=== PATIENT | female | born 1975 | race Caucasian/White ===

== ENCOUNTER 2022-03-10 14:44 | Emergency (ER) | payer MEDICARE, OTHER, SELFPAY ==
[2022-03-10 14:56] VITALS: BP 107/71; PULSE 61; RESP 12; TEMP 36.3; O2SAT 100; BMI 31.6
--- NOTE | 2022-03-10 15:20 | CRLHL7_ITS ---
For Patients: As a result of the Century Cures Act, medical imaging exams and procedure reports are released immediately into your electronic medical record. You may view this report before your referring provider. If you have questions, please contact your health care provider. INDICATION: Headache TECHNIQUE: CT head without contrast. COMPARISON: None FINDINGS: CSF spaces: Within normal limits for age. Brain parenchyma: The akers-white differentiation is normal. No sign of mass, hemorrhage, or midline shift. Skull base and calvarium: The visualized paranasal sinuses and mastoid air cells demonstrate no acute or significant findings. The visualized orbits are grossly unremarkable. No skull fractures. IMPRESSION: Unremarkable noncontrast head CT. Dictated by Noah Ritter MD @ 03/10/2022 4:17:50 PM Please note that all CT scans at this facility use dose modulation, iterative reconstruction, and/or weight-based dosing when appropriate to reduce radiation dose to as low as reasonably achievable. Dictated by: Noah Ritter MD @ 03/10/2022 16:17:54 (Electronically Signed)
--- NOTE | 2022-03-10 15:20 | CRLHL7_ITS ---
For Patients: As a result of the Century Cures Act, medical imaging exams and procedure reports are released immediately into your electronic medical record. You may view this report before your referring provider. If you have questions, please contact your health care provider. Pelvis. INDICATION: Chronic diarrhea. COMPARISON: None. TECHNIQUE: CT abdomen and pelvis with Isovue-370, 90 cc IV. FINDINGS: Lung bases clear. Normal heart size. No pericardial effusion. Normal liver size and contour. No suspicious hepatic lesions. The hepatic and portal veins appear patent. Gallbladder is not identified. No biliary dilatation. No significant abnormality of the adrenal glands, kidneys, spleen, pancreas, stomach or duodenum. Normal course and caliber of the abdominal aorta and the IVC. The aortic side branches and renal veins appear patent. There is no lymphadenopathy. Bladder is normal. Uterus appears normal. There are several right adnexal lesions which appear to be corpus luteal cysts (series 3 image 112). Mild rectal thickening versus intramural fat deposition (series 3 image 125), favor fat deposition. No pericolonic fat stranding. Normal appendix. Terminal ileum appears normal. No significant free fluid. Small fat containing periumbilical hernia. No acute osseous abnormality. IMPRESSION: No etiology identified for patient`s chronic diarrhea. No definite acute abnormality within the abdomen or pelvis. Please note that all CT scans at this facility use dose modulation, iterative reconstruction, and/or weight-based dosing when appropriate to reduce radiation dose to as low as reasonably achievable. Dictated by Epi Monterroso MD @ 03/10/2022 5:03:26 PM (Electronically Signed)
--- NOTE | 2022-03-10 15:23 | ED_ITS ---
HPI - General Adult General Chief complaint: Headache/Migraine Stated complaint: Diarreah since August, Chronic Migraines Time Seen by Provider: 03/10/22 14:55 History of Present Illness HPI narrative: This 46-year-old female comes in reporting chronic diarrhea for the past 6 months. She also has had migraine headaches that occur almost daily. She does not have any fever. She is not on any new medications triggering these symptoms. She did see a provider in clinic about a month ago and had labs drawn. She has not taken any medications for these symptoms except for a preventative medicine for headache as well as a rescue medicine for headache. She states that these medicines have not helped her. Related Data Previous Rx's Medication Instructions Recorded diphenoxylate-atropine 2.5 1 tab PO DAILY #10 tabs 03/10/22 mg-0.025 mg tablet (Lomotil) ketorolac 10 mg tablet 10 mg PO Q8H 5 days #15 tabs 03/10/22 ondansetron HCl 4 mg tablet 4 mg PO Q6H #20 tabs 03/10/22 Allergies Allergy/AdvReac Type Severity Reaction Status Date / Time morphine AdvReac Verified 03/10/22 15:03 Review of Systems Status of ROS: Reports: 10 or more systems reviewed and unremarkable except as noted in History and below Narrative: Constitutional: No fevers, no weight gain or loss. Eyes: No discharge. No vision changes. HENT: No congestion, no sore throat, no ear pain. Cardiovascular: No chest pain, no palpitations. Respiratory: No shortness of breath, no wheezes, no cough. Gastrointestinal: Mild abdominal pain, no vomiting. Chronic watery diarrhea as described above. Genitourinary: No dysuria, no hematuria. Musculoskeletal: Normal range of motion. Skin: No rashes, no pruritis. Neurological: No dizziness, weakness, sensory change, speech change. Endo/Heme/Allergies: No bruising or bleeding. No polydipsia. Pysch: no suicidality, no anxiety, no insomnia. All other systems reviewed and are negative. Exam Narrative: Exam Narrative: Constitutional: Well-developed, well-nourished, no acute distress. HEENT: Normocephalic, atraumatic. Neck: Normal range of motion. Nontender. Supple. Heart: Regular. No murmurs. Normal rate. Intact distal pulses. Lungs: Clear to auscultation. No chest discomfort. No wheezes, rhonchi, or rales. Abdomen: Normal bowel sounds. Mild tenderness No rebound tenderness. Genitalia: Deferred. Back: No midline tenderness. Normal range of motion. Extremities: Normal range of motion. No injury. Skin: Intact. No rash. Warm. No erythema or pallor. Neurologic: No altered sensation. No weakness. Alert and oriented. No facial asymmetry or unilateral weakness. Speech is normal. Psychiatric: No suicidality. No anxiety or depression. No insomnia. Nursing notes and vitals signs are reviewed. Const: Vital Signs, click to edit/add: Vital Signs - 24 hr 03/10/22 14:56 Temperature 97.4 F L Pulse Rate [Pulse Oximeter] 61 Respiratory Rate 12 Blood Pressure [Ri ght Upper Arm] 107/71 Pulse Oximetry 100 Oxygen Delivery Me thod Room Air Course Vital Signs Vital signs: Initial Vital Signs Temperature 97.4 F L 03/10/22 14:56 Temperature Source Temporal Artery Scan 03/10/22 14:56 Pulse Rate 61 03/10/22 14:56 Respiratory Rate 12 03/10/22 14:56 Blood Pressure 107/71 03/10/22 14:56 Blood Pressure Mean 83 03/10/22 14:56 Blood Pressure Position Sitting 03/10/22 14:56 Pulse Oximetry 100 03/10/22 14:56 Oxygen Delivery Method 03/10/22 14:56 Vital Signs Temperature 97.4 F L 03/10/22 14:56 Pulse Rate 61 03/10/22 14:56 Respiratory Rate 12 03/10/22 14:56 Blood Pressure 107/71 03/10/22 14:56 Pulse Oximetry 100 03/10/22 14:56 Oxygen Delivery Method 03/10/22 14:56 Temperature 97.4 F L 03/10/22 14:56 Pulse Rate 61 03/10/22 14:56 Respiratory Rate 12 03/10/22 14:56 Blood Pressure 107/71 03/10/22 14:56 Pulse Oximetry 100 03/10/22 14:56 Oxygen Delivery Method 03/10/22 14:56 Medical Decision Making MDM Narrative Medical decision making narrative: This patient comes in with recurrent diarrhea and migraine headaches for the past fiber 6 months. An IV was established and she received a L of normal saline intravenously. Lab results returned with reassuring findings. Her white count is elevated a bit but this is not new for her in her comparison values in the past. CT imaging of the abdomen and pelvis shows no acute findings as does CT imaging of her head. The patient received IV doses of Toradol 30 mg, Zofran 4 mg, and Benadryl 50 mg. This brought some minimal relief to her symptoms. She was interested in receiving something further so she did received 20 mg of ketamine infused over 20-30 minutes. This brought better relief to her pain. She is okay to return home. I did advise that she try to return to normal diet and use fiber additive help normalize her bowels. She could also use Imodium as needed and directed. I did provide a few tablets of Lomotil along with prescription for Toradol and Zofran to treat her symptoms. Lab Data Labs: Lab Results 03/10/22 03/10/22 03/10/22 Range/Units 15:45 15:45 15:45 WBC 15.11 H (4.50-11.00) K/uL RBC 4.56 (4.00-5.20) m/uL Hgb 14.2 (12.0-16.0) gm/dL Hct 42.6 (33.0-51.0) % MCV 93 (80-100) fL MCH 31 (26-34) pg MCHC 33 (32-36) gm/dL RDW Coeff of Aruna 13.4 (11.5-15.5) % Plt Count 293 (140-440) K/uL Neut % (Auto) 66.0 (42.0-72.0) % Lymph % (Auto) 27.4 (20-44) % [place] % (Auto) 4.6 (0.0-11.0) % Eos % (Auto) 1.2 (0.0-7.0) % Baso % (Auto) 0.3 (0.0-3.0) % Neut # (Auto) 10.00 H (1.7-7.0) K/uL Lymph # (Auto) 4.10 H (0.90-2.90) K/uL [place] # (Auto) 0.70 (0.00-0.90) K/UL Eos # (Auto) 0.20 (0.00-0.50) K/uL Baso # (Auto) 0.00 (0.00-0.30) K/uL ESR 6 (2-20) mm/hr Sodium 137 (135-149) mmol/L Potassium 3.9 (3.6-5.1) mmol/L Chloride 105 (96-114) mmol/L Carbon Dioxide 26 (20-32) mmol/L BUN 15 (5-24) mg/dL Creatinine 1.1 (0.5-1.5) mg/dL Estimated Creat Clear 65.15 Estimated GFR 63 ml/min Glucose 100 (60-115) mg/dL Calcium 8.8 (8.4-10.6) mg/dL Total Bilirubin (0.1-1.5) mg/dL Direct Bilirubin (0.0-0.5) mg/dL AST (12-35) U/L ALT (4-35) U/L Alkaline Phosphatase (40-150) U/L C-Reactive Protein < 0.5 L (0.5-1.0) mg/dL Total Protein (6.0-8.3) g/dL Albumin (3.3-5.0) g/dL TSH (0.270-4.20) uIU/mL 03/10/22 03/10/22 Range/Units 15:45 15:45 WBC (4.50-11.00) K/uL RBC (4.00-5.20) m/uL Hgb (12.0-16.0) gm/dL Hct (33.0-51.0) % MCV (80-100) fL MCH (26-34) pg MCHC (32-36) gm/dL RDW Coeff of Aruna (11.5-15.5) % Plt Count (140-440) K/uL Neut % (Auto) (42.0-72.0) % Lymph % (Auto) (20-44) % [place] % (Auto) (0.0-11.0) % Eos % (Auto) (0.0-7.0) % Baso % (Auto) (0.0-3.0) % Neut # (Auto) (1.7-7.0) K/uL Lymph # (Auto) (0.90-2.90) K/uL [place] # (Auto) (0.00-0.90) K/UL Eos # (Auto) (0.00-0.50) K/uL Baso # (Auto) (0.00-0.30) K/uL ESR (2-20) mm/hr Sodium (135-149) mmol/L Potassium (3.6-5.1) mmol/L Chloride (96-114) mmol/L Carbon Dioxide (20-32) mmol/L BUN (5-24) mg/dL Creatinine (0.5-1.5) mg/dL Estimated Creat Clear Estimated GFR ml/min Glucose (60-115) mg/dL Calcium (8.4-10.6) mg/dL Total Bilirubin 0.5 (0.1-1.5) mg/dL Direct Bilirubin 0.4 (0.0-0.5) mg/dL AST 29 (12-35) U/L ALT 21 (4-35) U/L Alkaline Phosphatase 77 (40-150) U/L C-Reactive Protein (0.5-1.0) mg/dL Total Protein 7.2 (6.0-8.3) g/dL Albumin 4.4 (3.3-5.0) g/dL TSH 0.792 (0.270-4.20) uIU/mL Imaging Data CT scan - head: Radiologist's impression: Unremarkable noncontrast head CT. CT scan - abdomen: Radiologist's impression: No etiology identified for patient`s chronic diarrhea. No definite acute abnormality within the abdomen or pelvis. Discharge Plan Discharge Clinical Impression: Migraine, Diarrhea Patient Disposition: Home, Self-Care Condition: Stable Additional Instructions: Use medication as needed and indicated. Resume normal diet as tolerated. Use Imodium also as needed and indicated for diarrhea. Follow up with MD or return if worsening. Prescriptions: New ondansetron HCl 4 mg tablet 4 mg PO Q6H Qty: 20 0RF diphenoxylate-atropine [Lomotil] 2.5-0.025 mg tablet 1 tab PO DAILY Qty: 10 0RF ketorolac 10 mg tablet 10 mg PO Q8H 5 Days Qty: 15 0RF Follow Up/Referrals: Provider,Not a Local [Primary Care Provider] - Stand Alone Forms: [employer] Info Instructions
[2022-03-10] MEDS: diphenhydrAMINE 50 MG/ML inj IVP (15:47)
[2022-03-10] MEDS: KETOROLAC 30 MG/ML inj IVP (15:47)
[2022-03-10] MEDS: ONDANSETRON 2 MG/ML inj 4 MG IVP (15:47)
[2022-03-10 16:00] LABS: Basophils Percent Auto 0.3 % (0.0-3.0); Eosinophils Percent Auto 1.2 % (0.0-7.0); Hematocrit 42.6 % (33.0-51.0); Hemoglobin* 14.2 gm/dL (12.0-16.0); Immature Granulocytes Pct Auto 0.5 %; Lymphocytes Percent Auto 27.4 % (20-44); Mean Corpuscular HGB Conc 33 gm/dL (32-36); Mean Corpuscular Hemoglobin 31 pg (26-34); Mean Corpuscular Volume 93 fL (80-100); Monocytes Percent Auto 4.6 % (0.0-11.0); Platelet Count* 293 K/uL (140-440); RDW Coefficient of Variation % 13.4 % (11.5-15.5); Red Blood Count 4.56 m/uL (4.00-5.20); White Blood Count* 15.11 K/uL (4.50-11.00)
[2022-03-10 16:03] LABS: Slide Review Reflex No
[2022-03-10 16:11] LABS: Chloride* 105 mmol/L (96-114); Sodium* 137 mmol/L (135-149)
[2022-03-10 16:12] LABS: Albumin* 4.4 g/dL (3.3-5.0); Potassium* 3.9 mmol/L (3.6-5.1)
[2022-03-10 16:14] LABS: Creatinine* 1.1 mg/dL (0.5-1.5); Est. Creatinine Clearance* 65.15; Estimated Glomerular Filt Rate 63 ml/min
[2022-03-10 16:15] LABS: Bilirubin Direct* 0.4 mg/dL (0.0-0.5); Bilirubin Total* 0.5 mg/dL (0.1-1.5); Blood Urea Nitrogen* 15 mg/dL (5-24); Calcium* 8.8 mg/dL (8.4-10.6); Carbon Dioxide* 26 mmol/L (20-32); Glucose* 100 mg/dL (60-115); Total Protein* 7.2 g/dL (6.0-8.3)
[2022-03-10 16:16] LABS: Alanine Aminotransferase* 21 U/L (4-35); Alkaline Phosphatase* 77 U/L (40-150); Aspartate Amino Transferase* 29 U/L (12-35)
[2022-03-10 16:25] LABS: C Reactive Protein* < 0.5 mg/dL (0.5-1.0)
[2022-03-10] MEDS: 0.9 % SODIUM CHLORIDE 1000 ml 1,000 ML IV (16:56)
[2022-03-10 16:58] LABS: Erythrocyte SedimentationRate* 6 mm/hr (2-20); Thyroid Stimulating Hormone* 0.792 uIU/mL (0.270-4.20)
[2022-03-10] MEDS: KETAMINE HCL 20 MG in 0.9 % SODIUM CHLORIDE 100 ml 100 ML 300.6 MG IVPB (17:47)
[2022-03-10] MEDS: METHYLPREDNISOLONE SOD SUCC 62.5 MG/ML (125) 125 MG IVP (17:47)
[2022-03-10 19:00] VITALS: BP 119/78; PULSE 85; RESP 12; O2SAT 98
== END 2022-03-10 19:05 | disposition home or self-care (01) ==
PROVIDERS: Emergency Provider Emergency Medicine Emergency Medical Services
DX: G43.909 Migraine, unspecified, not intractable, without status migrainosus (principal); R19.7 Diarrhea, unspecified
CPT/HCPCS: 36415; 70450; 74177; 80048; 80076; 84443; 85025; 85651; 86140; 96365; 96375; 99284; J1200; J1885; J2405; J2930; J3490; J7030; Q9967

== ENCOUNTER 2022-03-16 23:51 | Outpatient (CLI) | payer MEDICARE, OTHER, SELFPAY | END 2022-03-16 23:52 | disposition home or self-care (01) | LOC: AMB 03-17 13:36 | PROVIDERS: Visit Provider Family Medicine | DX: T40.411A Poisoning by fentanyl or fentanyl analogs, accidental (unintentional), initial encounter (principal) | CPT/HCPCS: A0425; A0427 ==

== ENCOUNTER 2022-03-17 00:29 | Emergency (ER) | payer MEDICARE, OTHER, SELFPAY ==
[2022-03-17] VITALS (7 sets, daily range): BP systolic 121–140; BP diastolic 71–103; PULSE 80–98; RESP 16; TEMP 36.4; O2SAT 94–100
[2022-03-17 01:23] LABS: Basophils Percent Auto 0.4 % (0.0-3.0); Eosinophils Percent Auto 1.5 % (0.0-7.0); Hematocrit 39.1 % (33.0-51.0); Hemoglobin* 12.6 gm/dL (12.0-16.0); Immature Granulocytes Pct Auto 0.1 %; Lymphocytes Percent Auto 25.1 % (20-44); Mean Corpuscular HGB Conc 32 gm/dL (32-36); Mean Corpuscular Hemoglobin 31 pg (26-34); Mean Corpuscular Volume 95 fL (80-100); Monocytes Percent Auto 4.7 % (0.0-11.0); Neutrophils Percent Auto 68.2 % (42.0-72.0); Platelet Count* 159 K/uL (140-440); RDW Coefficient of Variation % 13.3 % (11.5-15.5); Slide Review Reflex No; White Blood Count* 11.81 K/uL (4.50-11.00)
[2022-03-17] MEDS: 0.9 % SODIUM CHLORIDE 1000 ml 1,000 ML IV (01:25)
[2022-03-17 01:39] LABS: Albumin* 4.3 g/dL (3.3-5.0); Chloride* 101 mmol/L (96-114); Sodium* 137 mmol/L (135-149)
[2022-03-17 01:40] LABS: Potassium* 4.3 mmol/L (3.6-5.1)
[2022-03-17 01:42] LABS: Creatinine* 1.6 mg/dL (0.5-1.5); Estimated Glomerular Filt Rate 40 ml/min
[2022-03-17 01:43] LABS: Alanine Aminotransferase* 26 U/L (4-35); Alkaline Phosphatase* 78 U/L (40-150); Aspartate Amino Transferase* 33 U/L (12-35); Bilirubin Direct* 0.3 mg/dL (0.0-0.5); Bilirubin Total* 0.3 mg/dL (0.1-1.5); Blood Urea Nitrogen* 11 mg/dL (5-24); Calcium* 8.6 mg/dL (8.4-10.6); Carbon Dioxide* 27 mmol/L (20-32); Glucose* 97 mg/dL (60-115); Total Protein* 7.2 g/dL (6.0-8.3)
[2022-03-17 01:44] LABS: Acetaminophen* < 10.0 ug/mL (10.0-30.0); Ethanol* < 0.01 % (0.01-0.03)
--- NOTE | 2022-03-17 01:45 | ED.NURSE ---
Miguel Newton, OKd to give info to . [phone]
[2022-03-17 01:52] LABS: Troponin I* 0.04 ng/mL (0.01-0.04)
[2022-03-17 01:53] LABS: NT Pro B Type NatriureticPept* 22 pg/mL
[2022-03-17 03:03] LABS: Salicylate* < 1.0 mg/dL (1.0-10)
[2022-03-17 03:04] LABS: Amphetamine Screen Urine Negative (Negative); Barbiturate Screen Urine Negative (Negative); Cocaine Screen Urine Negative (Negative); Methadone Screen Urine Negative (Negative); Methamphetamines Screen Urine Negative (Negative); Opiate Screen Urine Negative (Negative); Oxycodone Screen Urine Negative (Negative); Phencyclidine Screen Urine Negative (Negative)
[2022-03-17 03:05] LABS: Benzodiazepines Screen Urine POSITIVE (Negative); Cannabinoid Screen Urine POSITIVE (Negative); Tricyclic Antidepressant Urine POSITIVE (Negative)
[2022-03-17 03:27] LABS: Appearance Urine Cloudy (Clear); Bilirubin Urine Negative (Negative); Blood Urine 1+ (Negative); Color Urine Yellow (Yellow); Glucose Urine Negative (Negative); Ketones Urine Negative (Negative); Leukocyte Esterase Urine 1+ (Negative); Nitrite Urine Positive (Negative); Protein Urine Negative (Negative); Specific Gravity Urine >= 1.030 (1.000-1.030); Urobilinogen Urine 0.2 (0.2-1.0); pH Urine 5.5 (5.0-8.5)
[2022-03-17 03:40] LABS: Bacteria Urine Many; Mucus Urine Moderate; Squamous Epithelial Cell Urine Moderate (None-Few); WBC Urine 25-50 (0-5)
--- NOTE | 2022-03-17 04:00 | ED_ITS ---
HPI - General Adult General Chief complaint: Unspecified Complaint, Adult Stated complaint: Overdose Time Seen by Provider: 03/17/22 00:42 History of Present Illness HPI narrative: 46-year-old woman most recently seen here for migrainous type headache. Found at home I believe by her daughter unresponsive in the bathroom. Was alert by the time EMS arrived. Unclear amount of down time in the bathroom. Apparently ingested a pill obtained from an individual at [email or web address]. I asked her more about this and she admits that she thought it was oxycodone with ?a little bit of fentanyl?. Denies chest pain shortness of breath or sense of palpitations. More inquiry into this pill wear it sounds as though was not purchased today but she says she actually took half of it 2 days ago and then the other half today in an effort to treat headaches and chronic back pain. Says that she has not taken opiates in years. Again, took half of this particular pill a day prior but did not lose track of time or pass out like she did here today. Admits that if she would not have woken up that would not been good. It was not the intent to harm herself in any way. Other questioning later reveals that has an pending appointment in a couple of days with primary care provider as has been experiencing some dysuria. Related Data Previous Rx's Medication Instructions Recorded diphenoxylate-atropine 2.5 1 tab PO DAILY #10 tabs 03/10/22 mg-0.025 mg tablet (Lomotil) ketorolac 10 mg tablet 10 mg PO Q8H 5 days #15 tabs 03/10/22 ondansetron HCl 4 mg tablet 4 mg PO Q6H #20 tabs 03/10/22 Allergies Allergy/AdvReac Type Severity Reaction Status Date / Time morphine AdvReac Verified 03/10/22 15:03 Review of Systems Status of ROS: Reports: 10 or more systems reviewed and unremarkable except as noted in History and below PFSH PFSH Social History Do you use any of these nicotine containing products: E-Cigarettes Second hand tobacco smoke exposure: Yes How often do you have a drink containing alcohol: monthly or less AUDIT-C Alcohol total score: 1 Non-prescribed substance use: other Non-prescribed substance use details: unknown pill from person service: No Exam Narrative: Exam Narrative: Pleasant. NAD. Facial skin is with subtle faint rash which fades mostly over time in the ER. Appears to be mentating normally. Speaking fluidly. Cranial nerves 2-12 to be intact. Moving all extremities without difficulty. No indication of trauma on her person. Head is atraumatic. Lungs are clear and cardiovascular with a heart rate in a regular rate in a regular rhythm without murmur rub or gallop. Abdomen is soft and nontender. No masses appreciated. Const: Vital Signs, click to edit/add: Vital Signs - 24 hr 03/17/22 00:38 03/17/22 01:42 03/17/22 02:00 Temperature 97.5 F L Pulse Rate [Right Pulse Oximeter] 86 90 Respiratory Rate 16 16 Blood Pressure [Le ft Upper Arm] 132/89 130/76 Pulse Oximetry 94 96 100 Oxygen Delivery Me thod Room Air Room Air 03/17/22 01:40 03/17/22 01:20 03/17/22 04:00 Temperature Pulse Rate [Right Pulse Oximeter] 98 94 80 Respiratory Rate 16 16 16 Blood Pressure [Le ft Upper Arm] 138/103 H 140/96 H 121/71 Pulse Oximetry 99 99 96 Oxygen Delivery Me thod Room Air Room Air Room Air Documenting provider has reviewed patient's vital signs: yes Course Vital Signs Vital signs: Initial Vital Signs Temperature 97.5 F L 03/17/22 00:38 Temperature Source Temporal Artery Scan 03/17/22 00:38 Pulse Rate 86 03/17/22 00:38 Pulse Rhythm 03/17/22 00:38 Respiratory Rate 16 03/17/22 00:38 Blood Pressure 132/89 03/17/22 00:38 Blood Pressure Mean 103 03/17/22 00:38 Blood Pressure Position Semi-Fowlers 03/17/22 00:38 Pulse Oximetry 94 03/17/22 00:38 Oxygen Delivery Method 03/17/22 00:38 Vital Signs Temperature 97.5 F L 03/17/22 00:38 Pulse Rate 86 03/17/22 00:38 Respiratory Rate 16 03/17/22 00:38 Blood Pressure 132/89 03/17/22 00:38 Pulse Oximetry 94 03/17/22 00:38 Oxygen Delivery Method 03/17/22 00:38 Temperature 97.5 F L 03/17/22 00:38 Pulse Rate 80 03/17/22 04:00 Respiratory Rate 16 03/17/22 04:00 Blood Pressure 121/71 03/17/22 04:00 Pulse Oximetry 96 03/17/22 04:00 Oxygen Delivery Method 03/17/22 04:00 Medical Decision Making MDM Narrative Medical decision making narrative: Only watching on monitor here for time in the ER. Labs including tox screen pending. Cardiac evaluation also done. Nothing conclusive on labs. White count little bit elevated and CRP as well which might be explained by findings in urine. No events on account officer. Did receive a L of normal saline. Urine tox screen positive for tricyclics wear she notes she takes a number of psychiatric medications including prescribed clonazepam which also explains the benzodiazepine. THC as well. I would note however no opiates. Lab Data Lab results reviewed: Yes I reviewed the patient's lab results Labs: Lab Results 03/17/22 03/17/22 03/17/22 Range/Units 01:15 01:15 02:25 WBC 11.81 H (4.50-11.00) K/uL RBC 4.10 (4.00-5.20) m/uL Hgb 12.6 (12.0-16.0) gm/dL Hct 39.1 (33.0-51.0) % MCV 95 (80-100) fL MCH 31 (26-34) pg MCHC 32 (32-36) gm/dL RDW Coeff of Aruna 13.3 (11.5-15.5) % Plt Count 159 (140-440) K/uL Neut % (Auto) 68.2 (42.0-72.0) % Lymph % (Auto) 25.1 (20-44) % [place] % (Auto) 4.7 (0.0-11.0) % Eos % (Auto) 1.5 (0.0-7.0) % Baso % (Auto) 0.4 (0.0-3.0) % Neut # (Auto) 8.10 H (1.7-7.0) K/uL Lymph # (Auto) 3.00 H (0.90-2.90) K/uL [place] # (Auto) 0.60 (0.00-0.90) K/UL Eos # (Auto) 0.20 (0.00-0.50) K/uL Baso # (Auto) 0.00 (0.00-0.30) K/uL Sodium 137 (135-149) mmol/L Potassium 4.3 (3.6-5.1) mmol/L Chloride 101 (96-114) mmol/L Carbon Dioxide 27 (20-32) mmol/L BUN 11 (5-24) mg/dL Creatinine 1.6 H (0.5-1.5) mg/dL Estimated GFR 40 ml/min Glucose 97 (60-115) mg/dL Calcium 8.6 (8.4-10.6) mg/dL Total Bilirubin 0.3 (0.1-1.5) mg/dL Direct Bilirubin 0.3 (0.0-0.5) mg/dL AST 33 (12-35) U/L ALT 26 (4-35) U/L Alkaline Phosphatase 78 (40-150) U/L Troponin I 0.04 (0.01-0.04) ng/mL C-Reactive Protein 1.0 (0.5-1.0) mg/dL NT-Pro-B Natriuret Pep 22 pg/mL Total Protein 7.2 (6.0-8.3) g/dL Albumin 4.3 (3.3-5.0) g/dL Urine Color (Yellow) Urine Appearance (Clear) Urine pH (5.0-8.5) Ur Specific [place] (1.000-1.030) Urine Protein (Negative) Urine Glucose (UA) (Negative) Urine Ketones (Negative) Urine Blood (Negative) Urine Nitrite (Negative) Urine Bilirubin (Negative) Urine Urobilinogen (0.2-1.0) Ur Leukocyte Esterase (Negative) Urine RBC (0-2) Urine WBC (0-5) Ur Squamous Epith Cells (None-Few) Urine Bacteria (None) Urine Mucus (None) Salicylates < 1.0 L (1.0-10) mg/dL Urine Opiates Screen Negative (Negative) Ur Oxycodone Screen Negative (Negative) Urine Methadone Screen Negative (Negative) Ur Propoxyphene Screen Negative (Negative) Acetaminophen < 10.0 L (10.0-30.0) ug/mL Ur Barbiturates Screen Negative (Negative) U Tricyclic Antidepress POSITIVE A* (Negative) Ur Phencyclidine Scrn Negative (Negative) Ur Amphetamines Screen Negative (Negative) U Methamphetamines Scrn Negative (Negative) U Benzodiazepines Scrn POSITIVE A* (Negative) Urine Cocaine Screen Negative (Negative) U Marijuana (THC) Screen POSITIVE A* (Negative) Ur Drug Screen Comment See Note Ethyl Alcohol < 0.01 L (0.01-0.03) % 03/17/22 Range/Units 02:25 WBC (4.50-11.00) K/uL RBC (4.00-5.20) m/uL Hgb (12.0-16.0) gm/dL Hct (33.0-51.0) % MCV (80-100) fL MCH (26-34) pg MCHC (32-36) gm/dL RDW Coeff of Aruna (11.5-15.5) % Plt Count (140-440) K/uL Neut % (Auto) (42.0-72.0) % Lymph % (Auto) (20-44) % [place] % (Auto) (0.0-11.0) % Eos % (Auto) (0.0-7.0) % Baso % (Auto) (0.0-3.0) % Neut # (Auto) (1.7-7.0) K/uL Lymph # (Auto) (0.90-2.90) K/uL [place] # (Auto) (0.00-0.90) K/UL Eos # (Auto) (0.00-0.50) K/uL Baso # (Auto) (0.00-0.30) K/uL Sodium (135-149) mmol/L Potassium (3.6-5.1) mmol/L Chloride (96-114) mmol/L Carbon Dioxide (20-32) mmol/L BUN (5-24) mg/dL Creatinine (0.5-1.5) mg/dL Estimated GFR ml/min Glucose (60-115) mg/dL Calcium (8.4-10.6) mg/dL Total Bilirubin (0.1-1.5) mg/dL Direct Bilirubin (0.0-0.5) mg/dL AST (12-35) U/L ALT (4-35) U/L Alkaline Phosphatase (40-150) U/L Troponin I (0.01-0.04) ng/mL C-Reactive Protein (0.5-1.0) mg/dL NT-Pro-B Natriuret Pep pg/mL Total Protein (6.0-8.3) g/dL Albumin (3.3-5.0) g/dL Urine Color Yellow (Yellow) Urine Appearance Cloudy A (Clear) Urine pH 5.5 (5.0-8.5) Ur Specific [place] >= 1.030 (1.000-1.030) Urine Protein Negative (Negative) Urine Glucose (UA) Negative (Negative) Urine Ketones Negative (Negative) Urine Blood 1+ A (Negative) Urine Nitrite Positive A (Negative) Urine Bilirubin Negative (Negative) Urine Urobilinogen 0.2 (0.2-1.0) Ur Leukocyte Esterase 1+ A (Negative) Urine RBC 2-5 A (0-2) Urine WBC 25-50 A (0-5) Ur Squamous Epith Cells Moderate A (None-Few) Urine Bacteria Many A (None) Urine Mucus Moderate A (None) Salicylates (1.0-10) mg/dL Urine Opiates Screen (Negative) Ur Oxycodone Screen (Negative) Urine Methadone Screen (Negative) Ur Propoxyphene Screen (Negative) Acetaminophen (10.0-30.0) ug/mL Ur Barbiturates Screen (Negative) U Tricyclic Antidepress (Negative) Ur Phencyclidine Scrn (Negative) Ur Amphetamines Screen (Negative) U Methamphetamines Scrn (Negative) U Benzodiazepines Scrn (Negative) Urine Cocaine Screen (Negative) U Marijuana (THC) Screen (Negative) Ur Drug Screen Comment Ethyl Alcohol (0.01-0.03) % ECG Data Attestation: I personally reviewed and interpreted this ECG as follows: (Normal sinus rhythm rate of 95) Discharge Plan Discharge Clinical Impression: Altered mental status, Cystitis, Ingestion of unknown drug Patient Disposition: Home w/ Parent or Adult Condition: Improved Additional Instructions: Especially given the cystitis, stay well hydrated with water. Urine culture will be pending here. Will call you if the medication needs to be changed. For now, cephalexin from [facility]. Follow-up with scheduled appointment with your primary care provider to talk about your headaches and your pain otherwise. Surely there are safer ways to manage it than what happened today. Prescriptions: No Action ondansetron HCl 4 mg tablet 4 mg PO Q6H Qty: 20 0RF diphenoxylate-atropine [Lomotil] 2.5-0.025 mg tablet 1 tab PO DAILY Qty: 10 0RF ketorolac 10 mg tablet 10 mg PO Q8H 5 Days Qty: 15 0RF Follow Up/Referrals: Provider,Not a Local [Primary Care Provider] - Stand Alone Forms: [facility] Info Instructions
== END 2022-03-17 04:47 | disposition home or self-care (01) ==
PROVIDERS: Emergency Provider Family Medicine
DX: R41.82 Altered mental status, unspecified (principal); T65.91XA Toxic effect of unspecified substance, accidental (unintentional), initial encounter; Y92.012 Bathroom of single-family (private) house as the place of occurrence of the external cause; N30.90 Cystitis, unspecified without hematuria
CPT/HCPCS: 36415; 80048; 80076; 80143; 80179; 80306; 81001; 82077; 83880; 84484; 85025; 86140; 87086; 87186; 93005; 94761; 96360; 99284; J7030

== ENCOUNTER 2022-04-05 13:46 | Emergency (ER) | payer MEDICARE, OTHER, SELFPAY ==
[2022-04-05 13:49] VITALS: BP 147/112; PULSE 125; RESP 18; TEMP 36.4; O2SAT 98; BMI 32.8
--- NOTE | 2022-04-05 14:18 | CRLHL7_ITS ---
For Patients: As a result of the Century Cures Act, medical imaging exams and procedure reports are released immediately into your electronic medical record. You may view this report before your referring provider. If you have questions, please contact your health care provider. Indication: Vertigo Technique: Noncontrast head CT Comparison: Head CT 03/10/2022 Findings: Axial noncontrast images through the brain parenchyma demonstrates no acute intracranial hemorrhage or mass. No midline shift. No abnormal extra-axial air or fluid collections are seen. Skull and scalp are unremarkable Impression: No acute intracranial hemorrhage or mass. Please note that all CT scans at this facility use dose modulation, iterative reconstruction, and/or weight-based dosing when appropriate to reduce radiation dose to as low as reasonably achievable. Dictated by Lori Arroyo MD @ 04/05/2022 3:10:54 PM (Electronically Signed)
--- NOTE | 2022-04-05 14:19 | ED.HA ---
HPI - Headache General Chief Complaint: Headache/Migraine Stated Complaint: Migraine Dizzy Ear Pain Time Seen by Provider: 04/05/22 13:53 History of Present Illness HPI Narrative: This 46-year-old female comes in reporting headache and vertigo symptoms. She has had headaches for the most of the past few months or more. She reports some associated visual changes that come and go. Additionally she has episodes of left-sided hearing changes including decreased hearing and ringing sensation. This is also associated with vertigo symptoms. These symptoms occur once or twice a day on average. She does not report any fevers. She states that she has been to a neurologist regarding these headaches and was placed on propranolol. This did not help her symptoms at all. Related Data Previous Rx's Medication Instructions Recorded diphenoxylate-atropine 2.5 1 tab PO DAILY #10 tabs 03/10/22 mg-0.025 mg tablet (Lomotil) ketorolac 10 mg tablet 10 mg PO Q8H 5 days #15 tabs 03/10/22 ondansetron HCl 4 mg tablet 4 mg PO Q6H #20 tabs 03/10/22 hydrochlorothiazide 12.5 mg tablet 12.5 mg PO QAM #30 tabs 04/05/22 ketorolac 10 mg tablet 10 mg PO Q8H 5 days #15 tabs 04/05/22 meclizine 25 mg tablet 25 mg PO QID #20 tabs 04/05/22 ondansetron 4 mg disintegrating 4 mg PO Q6H #20 tabs 04/05/22 tablet Allergies Allergy/AdvReac Type Severity Reaction Status Date / Time morphine AdvReac Verified 03/10/22 15:03 Review of Systems Status of ROS: Reports: 10 or more systems reviewed and unremarkable except as noted in History and below Narrative: Constitutional: No fevers, no weight gain or loss. Eyes: No discharge. Visual changes related to headaches as described above. HENT: No congestion, no sore throat. She reports some pain in the left side of her head and ear. Intermittent hearing changes with decreased hearing and ringing sensation. Cardiovascular: No chest pain, no palpitations. Respiratory: No shortness of breath, no wheezes, no cough. Gastrointestinal: No abdominal pain, no vomiting, no diarrhea. Genitourinary: No dysuria, no hematuria. Musculoskeletal: Normal range of motion. Skin: No rashes, no pruritis. Neurological: No weakness, sensory change, speech change. She reports episodes of vertigo related to hearing changes. Endo/Heme/Allergies: No bruising or bleeding. No polydipsia. Pysch: no suicidality, no anxiety, no insomnia. All other systems reviewed and are negative. [facility] Social History Do you use any of these nicotine containing products: E-Cigarettes Second hand tobacco smoke exposure: Yes How often do you have a drink containing alcohol: monthly or less AUDIT-C Alcohol total score: 1 Non-prescribed substance use: other Non-prescribed substance use details: unknown pill from person service: No Exam Narrative: Exam Narrative: Constitutional: Well-developed, well-nourished, no acute distress. HEENT: Normocephalic, atraumatic. Neck: Normal range of motion. Nontender. Supple. Heart: Regular. No murmurs. Tachycardia. Intact distal pulses. Lungs: Clear to auscultation. No chest discomfort. No wheezes, rhonchi, or rales. Abdomen: Normal bowel sounds. Nontender. No rebound tenderness. Genitalia: Deferred. Back: No midline tenderness. Normal range of motion. Extremities: Normal range of motion. No injury. Skin: Intact. No rash. Warm. No erythema or pallor. Neurologic: No altered sensation. No weakness. Alert and oriented. Psychiatric: No suicidality. No anxiety or depression. No insomnia. Nursing notes and vitals signs are reviewed. Const: Vital Signs, click to edit/add: Vital Signs - 24 hr 04/05/22 13:49 04/05/22 15:34 04/05/22 16:49 Temperature 97.6 F 97.6 F 97.6 F Pulse Rate [Right Pulse Oximeter] 125 H 100 97 Respiratory Rate 18 16 Blood Pressure [Ri ght Upper Arm] 147/112 H 136/98 H 147/103 H Pulse Oximetry 98 95 97 Oxygen Delivery Me thod Room Air Room Air Room Air Course Vital Signs Vital signs: Initial Vital Signs Temperature 97.6 F 04/05/22 13:49 Temperature Source Temporal Artery Scan 04/05/22 13:49 Pulse Rate 125 H 04/05/22 13:49 Respiratory Rate 18 04/05/22 13:49 Blood Pressure 147/112 H 04/05/22 13:49 Blood Pressure Mean 123 04/05/22 13:49 Blood Pressure Position Sitting 04/05/22 13:49 Pulse Oximetry 98 04/05/22 13:49 Oxygen Delivery Method 04/05/22 13:49 Vital Signs Temperature 97.6 F 04/05/22 13:49 Pulse Rate 125 H 04/05/22 13:49 Respiratory Rate 18 04/05/22 13:49 Blood Pressure 147/112 H 04/05/22 13:49 Pulse Oximetry 98 04/05/22 13:49 Oxygen Delivery Method 04/05/22 13:49 Temperature 97.6 F 04/05/22 16:49 Pulse Rate 97 04/05/22 16:49 Respiratory Rate 16 04/05/22 16:49 Blood Pressure 147/103 H 04/05/22 16:49 Pulse Oximetry 97 04/05/22 16:49 Oxygen Delivery Method 04/05/22 16:49 MDM - Headache MDM Narrative Medical decision making narrative: This patient comes in with symptoms as described above. There are symptoms that are suggestive of classic migraine with visual changes. She also has symptoms suggesting Meniere's disease. An IV was established where she received doses of Toradol 30 mg, Zofran 4 mg, and Benadryl 50 mg. She also received oral doses of meclizine 25 mg and hydrochlorothiazide 25 mg. She states that the headache is persisting though the other symptoms have dissipated some. She was requesting ketamine as this helped her significantly in the past. Pharmacist states that there is a shortage and there is just 1 vial left in this hospital. The patient then received an IV dose of Solu-Medrol 125 mg and I made an exception to give a narcotic. She did received Dilaudid 0.2 mg. This brought some relief to her symptoms. At the time of discharge the patient appears safe for outpatient management. The treatment plan is reviewed along with written and verbal return precautions. Reasons to return and the importance of close followup were also reviewed. I advised her to follow-up with [facility] with regard to the diagnosis of Meniere's disease. She did received prescription for hydrochlorothiazide, meclizine, Toradol, and Zofran. Imaging Data CT scan - head: Radiologist's impression: No acute intracranial hemorrhage or mass. Discharge Plan Discharge Clinical Impression: Migraine, Meniere's disease Patient Disposition: Home w/ Parent or Adult Condition: Stable Additional Instructions: Take medications as needed and indicated. [facility] with [facility] regarding the symptoms suggesting Meniere's disease. Return if worsening symptoms happen. Prescriptions: New ketorolac 10 mg tablet 10 mg PO Q8H 5 Days Qty: 15 0RF meclizine 25 mg tablet 25 mg PO QID Qty: 20 0RF ondansetron 4 mg tablet,disintegrating 4 mg PO Q6H Qty: 20 0RF hydrochlorothiazide 12.5 mg tablet 12.5 mg PO QAM Qty: 30 2RF No Action ondansetron HCl 4 mg tablet 4 mg PO Q6H Qty: 20 0RF diphenoxylate-atropine [Lomotil] 2.5-0.025 mg tablet 1 tab PO DAILY Qty: 10 0RF ketorolac 10 mg tablet 10 mg PO Q8H 5 Days Qty: 15 0RF Follow Up/Referrals: Provider,Not a Local [Primary Care Provider] - Stand Alone Forms: [facility] Info Instructions
[2022-04-05] MEDS: MECLIZINE HCL 25 MG TABLET PO (15:19)
[2022-04-05] MEDS: hydroCHLOROthiazide 25 MG TABLET PO (15:20)
[2022-04-05] MEDS: diphenhydrAMINE 50 MG/ML inj IVP (15:21)
[2022-04-05] MEDS: KETOROLAC 30 MG/ML inj IVP (15:21)
[2022-04-05] MEDS: ONDANSETRON 2 MG/ML inj 4 MG IVP (15:22)
[2022-04-05 15:34] VITALS: BP 136/98; PULSE 100; TEMP 36.4; O2SAT 95
[2022-04-05] MEDS: HYDROmorphone 0.5 mg/0.5 ml inj 0.2 MG IVP (16:45)
[2022-04-05] MEDS: METHYLPREDNISOLONE SOD SUCC 62.5 MG/ML (125) 125 MG IVP (16:45)
[2022-04-05 16:49] VITALS: BP 147/103; PULSE 97; RESP 16; TEMP 36.4; O2SAT 97
== END 2022-04-05 17:30 | disposition home or self-care (01) ==
PROVIDERS: Emergency Provider Emergency Medicine Emergency Medical Services
DX: G43.909 Migraine, unspecified, not intractable, without status migrainosus (principal); H81.09 Meniere's disease, unspecified ear
CPT/HCPCS: 70450; 96365; 96375; 99284; 99285; A9270; J1170; J1200; J1885; J2405; J2930

== ENCOUNTER 2022-12-05 09:00 | Outpatient (RCR) | payer MEDICARE, OTHER, SELFPAY ==
--- NOTE | 2022-11-14 15:57 | PT.OPEX ---
PT [facility] Eval PT [facility] Outpatient Eval Start: 11/14/22 09:31 Freq: Status: Active Protocol: Document 11/14/22 09:32 YAEL (Rec: 11/14/22 15:53 YAEL [id number]) E-signed By Darlyn Rosas PT Physical Therapy Outpatient Evaluation Insurance Information Insurance Name Medicare B Insurance Information/Comments MEDICARE/[facility] MEDICA CHOICE Medical Diagnosis RIGHT KNEE OA M17.11 LUMBAR DDD M51.36 Treating Diagnosis RIGHT KNEE PAIN M25.561 RIGHT KNEE DERANGEMENT M23.91 LUMBAR PAIN M54.5 Referring MD MARK CHRIS Subjective Subjective PATIENT REPORTS, I'M JUST BROKEN ALL OVER, WHERE DO YOU WANT TO START. PATIENT IS FRUSTRATED WITH THE AMOUNT OF CHALLENGE SHE HAS JUST TO MANAGE HER LIFE BUT, OVERALL, SHE C/O OF NOT BEING ABLE TO AMB FOR >10 MIN W/O SIGNIFICANT PAIN THROUGHOUT HER LEGS AND BACK WELL STAIRS. SHE STATES, I JUST WANT TO BE ABLE TO WALK AND TAKE CARE OF MY KIDS. Pain Comments Date of Last Physician Visit 10/27/22 Current Work Status [employer] Disability Occupation DISABLED Preferred Name YVAN Precautions Treatment Precautions/Contraindications PTSD, BIPOLAR DISORDER, ADD, ANXIETY, TBI WITH SHORT TERM MEMORY LOSS, OSTEOPOROSIS Therapy Limitations/Systems Review Other Medical Problem Assessment Assessment/Impression PATIENT IS A [address] MARK CHRIS TO EVALUATE AND TREAT RIGHT KNEE INSTABILITY/OA AND LUMBAR DDD. HER PMHX IS EXTENSIVE AND MULTIFACETED INCLUDING BUT NOT LIMITED TO RIGHT KNEE ARTHROSCOPY, OA, FIBROMYALGIA, IBS, ULCERATIVE COLITIS, OSTEOPOROSIS, BILATERAL CARPAL TUNNEL SYNDROME, MENIERE'S DZ WITH H/O VERTIGO AND CHRONIC MIGRAINES, PTSD, BIPOLAR DISORDER, ADD, ANXIETY AND DEPRESSION, H/O TBI WITH SHORT TERM MEMORY LOSS, RIGHT KNEE OA, RIGHT KNEE SUBLUXING PATELLA, CHRONIC PAIN SYNDROME . 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 SHE IS EXACERBATED DURING OUR EVALUATION WITH A DIFFICULT TIME STAYING FOCUSSED ON WHAT SHE IS HERE FOR TODAY. SHE HAS HAD CORTISONE INJECTION IN HER RIGHT KNEE IN THE PAST WITH VARYING RESULTS AND HAS RECEIVED 1 OF [address] CHRIS ~2 WEEKS AGO IN AN ATTEMPT TO A VOID A KNEE REPLACEMENT. SHE VERBALIZED A MYRIAD OF DEFICITS FOR EXAMPLE LAYING FLAT, STAIRS, STANDING, SITTING, AND TRANSFERS. PAST INTERVENTION INCLUDES BUT NOT LIMITED TO CHIROPRACTOR, PHYSICAL THERAPY, BRACING, PAIN MGMT, AND RIGHT KNEE ARTHROSCOPY. SHE HAS NORMAL ROM ABOUT HER LUMBAR, HIP AND KNEE WITH RIGHT KNEE SUBLUXING PATELLA MOVING FROM FLEXION TO EXTENSION. SHE REPORTS FREQUENTLY FALLING D/T HAVING HER KNEE GIVE OUT. STATED PREVIOUSLY, SHE HAS HAD SEVERAL TYPES OF BRACES BUT IS RESISTANT D/T FEELING OLD HAVING TO WEAR A KNEE BRACE. ADDITIONALLY, SHE HAS GOOD FLEXIBILITY ABOUT HER HIPS AND LEGS WITH 4+/5 STRENGTH. SHE DESCRIBES PAIN ABOUT BOTH KNEES RIGHT>LEFT, BILATERAL HIPS, LUMBAR REGION, AND SHOULDERS. TODAY WE DISCUSSED FIBROMYALGIA AND CHRONIC PAIN SYNDROME IN GENERAL WITH THE PLAN OF CARE FOR STRENGTHENING HER BLE AND CORE WELL RIGHT STABILIZATION. SHE IS AGREEABLE TO POC AND FREQ AND PROVIDED AN INITIAL HEP WITH BOTH DEMONSTRATION AND PERFORMING EACH. Primary Functional Limitations WALKING >10 MIN STEPS TRANSFER STDG KNEELING Plan of Care Rehabilitation Potential Fair Physical Therapy Goals IN 4 WEEKS: 1. PATIENT WILL VERBALIZE A GOOD UNDERSTANDING OF PAIN MGMT TECHNIQUES 2. PATIENT WILL BE ABLE TO INCREASE HER TOLERANCE FOR STANDING FOR MEAL PREP AND ADL 'S 3. PATIENT WILL REPORT WALKING FOR 1/2 MILE IN 8-10 WEEKS. 1. PATIENT WILL BE ABLE TO AMB 1MILE WITH REPORTS OF PAIN <4 /10 2. PATIENT WILL IMPROVE HER STRENGTH TO ALLOW HER TO SAFELY AMB UP/DOWN STEPS 3. PATIENT WILL BE INDEPENDENT WITH HER HEP AND DEMONSTRATE THE ABILITY TO SELF PROGRESS Coordination/Communication With Referral Source Treatment Plan/Direct Interventions Gait Training,Joint Mobilization,Manual Therapy, Neuromuscular Re-ed, Therapeutic Activities, Therapeutic Exercises Patient Will Be Discharged From Therapy Completion of LTG(s), Independent w/HEP Evaluation Billing PT Eval No Charge No Complexity High Certification Information Initial Certification Date 11/14/22 Ending Certification Date 02/11/23 Provider Signature Shows Agreement With POC & Medical Necessity Physician Signature & Date Requested Please Sign/Date Here Physician Comment/Change : Physician NPI Number #
== END 2023-01-28 11:29 | disposition home or self-care (01) ==
PROVIDERS: Visit Provider Family Medicine
DX: M25.561 Pain in right knee (principal); M51.36 Other intervertebral disc degeneration, lumbar region; M23.91 Unspecified internal derangement of right knee; Z51.89 Encounter for other specified aftercare
CPT/HCPCS: 97163; 97530

== ENCOUNTER 2022-12-24 12:41 | Emergency (ER) | payer MEDICARE, OTHER, SELFPAY ==
[2022-12-24 12:54] VITALS: BP 141/85; PULSE 128; RESP 20; TEMP 36.9; O2SAT 98; BMI 36.5
--- NOTE | 2022-12-24 13:12 | ED.GENADULT ---
HPI - General Adult General Chief complaint: Extremity Pain/Injury, Lower Stated complaint: R knee pain, cyst on R arm Time Seen by Provider: 12/24/22 12:52 History of Present Illness HPI narrative: reports that she has had increase pain in her right knee with difficulty bearing weight. feels this is worsening and does state she needs a tka. has a cyst on her right upper arm that is causing some discomfort. she does expand her complaint list as to having menstrual flow that is more brownish earlier than usual and that she is feeling shaky. Has varicose veins that are worsening. has burning with urination and concerned she has a bladder infection. 47-year-old woman presenting to the emergency department with a number of concerns. Information gathering is complicated by poor recall and she acknowledges a history of TBI. She has been having pain in her right knee exacerbated over the last 3 days. Not necessarily swelling but that it is popping in causing pain. She says that she has been recommended for a knee replacement at some point. She has had liver can injection of some sort. She cannot recall where she had been getting cares last. Apparent history of some ligamentous strain sprain or disruption along with what sounds like a meniscal issue. She did have looks to be arthroscopic procedure of some sort in the past. Has been going to PT locally. Has been taking Advil maybe acetaminophen at times. Hurts to bear weight. He also has a cyst on her right upper arm looks to be actually or posterior shoulder. Had 1 excised in the past and has another 1 recurring that is increasingly ?sensitive?. Has not had any drainage. Does have what she is describing as a dermoid cyst in the mid upper back that she regularly expresses sebum from per her recounting. Concern also potential urinary tract infection as maybe for the last month or so has been experiencing dysuria and the odor of burnt tires when she pees. Has not been having fever. Some degree of frequency. Does have primary care provider but admittedly does not go to the doctor very often. Related Data Home Medications Medication Instructions Recorded Confirmed amitriptyline 100 mg tablet 100 mg PO QPM 07/25/22 07/25/22 clonazepam 1 mg tablet 1 mg PO QID 07/25/22 07/25/22 clonidine HCl 0.2 mg tablet 0.6 mg PO QPM 07/25/22 07/25/22 dextroamphetamine-amphetamine 20 1 tab PO 3XD 07/25/22 07/25/22 mg tablet eszopiclone 3 mg tablet 3 mg PO QPM 07/25/22 07/25/22 hydroxyzine pamoate 50 mg capsule 50 mg PO QID 07/25/22 07/25/22 meloxicam 15 mg tablet 15 mg PO DAILY 07/25/22 07/25/22 mirtazapine 15 mg tablet 15 mg PO QPM 07/25/22 07/25/22 norethindrone 1 mg-ethinyl 1 tab PO DAILY 07/25/22 07/25/22 estradiol 20 mcg (21)-iron 75 mg (7) tablet (04/04 (28)) pramipexole 0.125 mg tablet 0.125 mg PO QPM 07/25/22 07/25/22 propranolol 20 mg tablet 20 mg PO BID 07/25/22 07/25/22 rimegepant 75 mg disintegrating 75 mg PO DAILY PRN 07/25/22 07/25/22 tablet (Nurtec ODT) rizatriptan 10 mg disintegrating 10 mg PO migraine 07/25/22 tablet Previous Rx's Medication Instructions Recorded diphenoxylate-atropine 2.5 1 tab PO DAILY #10 tabs 03/10/22 mg-0.025 mg tablet (Lomotil) meclizine 25 mg tablet 25 mg PO QID #20 tabs 07/25/22 ondansetron HCl 4 mg tablet 4 mg PO Q6H #20 tabs 07/25/22 pantoprazole 20 mg tablet,delayed 20 mg PO DAILY #20 tabs 07/25/22 release (Protonix) celecoxib 200 mg capsule (Celebrex) 200 mg PO DAILY #15 caps 12/24/22 cephalexin 500 mg capsule 500 mg PO TID 7 days #21 caps 12/24/22 prednisone 20 mg tablet 40 mg (2 x 20 mg) PO DAILY 6 days 12/24/22 #12 tabs Allergies Allergy/AdvReac Type Severity Reaction Status Date / Time morphine Allergy Intermediate burning Verified 07/25/22 16:27 and parylisised lactose Allergy Verified 07/25/22 16:27 Review of Systems Status of ROS: Reports: 6 or more systems reviewed and unremarkable except as noted in History and below PFSH PFSH Medical History Acute bronchitis ?J20.9 - Acute bronchitis, unspecified (ICD-10) Social History Smoking Status: Current some day smoker What tobacco products do you use: cigarettes Do you use any of these nicotine containing products: E-Cigarettes and Vaping Products Second hand tobacco smoke exposure: Yes How often do you have a drink containing alcohol: monthly or less How many standard drinks containing alcohol do you have on a typical day: 3 or 4 AUDIT-C Alcohol total score: 2 Non-prescribed substance use: marijuana (any form) and other Non-prescribed substance use details: on adderall and marijuana-medical service: No Exam Narrative: Exam Narrative: Pleasant. Of good energy. Slight impediment to her speech. Difficulty with recall. Fully alert. Breathing easily. Skin is warm and dry. The some evidence of old self-harm behavior in her left forearm. There is a pea-sized firm noninflamed swelling next to a 1 cm his car posterior right shoulder. Punctum associated with subtle subdermal swelling in the mid upper back/lower neck area as well. No inflammation here. Right knee I can not appreciate an effusion. She has trouble relaxing the need for good exam. Old surgical scars are evident in the anterior knee. No particular laxity to varus or valgus stressors. Roberta's seems just a little loose but does have solid endpoints. Abdomen is soft. Overweight. Mild discomfort to palpation in the suprapubic area. Const: Vital Signs, click to edit/add: Vital Signs - 24 hr 12/24/22 12:54 Temperature 98.5 F Pulse Rate [Pulse Oximeter] 128 H Respiratory Rate 20 Blood Pressure [Ri ght Upper Arm] 141/85 H Pulse Oximetry 98 Oxygen Delivery Me thod Room Air Documenting provider has reviewed patient's vital signs: yes Course Vital Signs Vital signs: Initial Vital Signs Temperature 98.5 F 12/24/22 12:54 Temperature Source Temporal Artery Scan 12/24/22 12:54 Pulse Rate 128 H 12/24/22 12:54 Pulse Rhythm Regular 12/24/22 12:54 Respiratory Rate 20 12/24/22 12:54 Blood Pressure 141/85 H 12/24/22 12:54 Blood Pressure Mean 103 12/24/22 12:54 Blood Pressure Position Supine 12/24/22 12:54 Pulse Oximetry 98 12/24/22 12:54 Oxygen Delivery Method Room Air 12/24/22 12:54 Vital Signs Temperature 98.5 F 12/24/22 12:54 Pulse Rate 128 H 12/24/22 12:54 Respiratory Rate 20 12/24/22 12:54 Blood Pressure 141/85 H 12/24/22 12:54 Pulse Oximetry 98 12/24/22 12:54 Oxygen Delivery Method Room Air 12/24/22 12:54 Temperature 98.5 F 12/24/22 12:54 Pulse Rate 128 H 12/24/22 12:54 Respiratory Rate 20 12/24/22 12:54 Blood Pressure 141/85 H 12/24/22 12:54 Pulse Oximetry 98 12/24/22 12:54 Oxygen Delivery Method Room Air 12/24/22 12:54 Medical Decision Making MDM Narrative Medical decision making narrative: At this point I think it would be good to get a baseline x-ray. Seems to indicate that she had 1 here with affiliated clinic or physician. I have not managed to locate this yet. I would anticipate follow-up with orthopedics locally. What looks to be a dermoid cyst she can follow up primary care for excision if needed. Urinalysis is pending. Urinalysis looks infected a numerous white cells and positive nitrate. She also reports that she is currently menstruating. Three-view right knee reviewed by me looks show reasonably maintained joint spaces. Some osteoarthritic changes some spurs but I would say better than expected. Some thinning perhaps on the lateral joint space. See patient discharge plan Lab Data Lab results reviewed: Yes I reviewed the patient's lab results Labs: Lab Results 12/24/22 Range/Units 13:25 Urine Color Yellow (Yellow) Urine Appearance Slightly Cloudy A (Clear) Urine pH 6.0 (5.0-8.5) Ur Specific Bigelow 1.025 (1.000-1.030) Urine Protein 2+ A (Negative) Urine Glucose (UA) Negative (Negative) Urine Ketones Negative (Negative) Urine Blood 3+ A (Negative) Urine Nitrite Positive A (Negative) Urine Bilirubin Negative (Negative) Urine Urobilinogen 0.2 (0.2-1.0) Ur Leukocyte Esterase 1+ A (Negative) Urine RBC 5-10 A (0-2) Urine WBC 50-100 A (0-5) Ur Squamous Epith Cells Few (None-Few) Urine Bacteria Many A (None) Hyaline Casts Few (None-Few) Urine Mucus Few A (None) Discharge Plan Discharge Clinical Impression: Sebaceous cyst, Knee joint pain, Osteoarthritis, Cystitis Patient Disposition: Home w/ Parent or Adult Condition: Stable Additional Instructions: Wear this knee immobilizer and use these crutches as needed over the next week or so. Sent in a prescription for Celebrex for your knee specifically as well as a course of prednisone. We are locating an appointment for you with Orthopedics for local follow-up. I would arrange appointment also with primary care locally to deal with this sebaceous cyst your right shoulder if you want to get it removed. Think it would be also good to have regular primary care contact here since you are living in the area. Will be sending in cephalexin to your pharmacy for your urinary tract infection. A urine culture will be pending here. Important to stay well hydrated with unsugared/unsweetened, not juice liquid. Follow up appointment is scheduled at the [facility] on 12/31 with an 8:50am arrival time. If you have any questions or need to reschedule, please call [phone]. [facility] [address] [place] [id number] Prescriptions: New cephalexin 500 mg capsule 500 mg PO TID 7 Days Qty: 21 0RF celecoxib [Celebrex] 200 mg capsule 200 mg PO DAILY Qty: 15 0RF prednisone 20 mg tablet 40 mg PO DAILY 6 Days Qty: 12 0RF No Action diphenoxylate-atropine [Lomotil] 2.5-0.025 mg tablet 1 tab PO DAILY Qty: 10 0RF meloxicam 15 mg tablet 15 mg PO DAILY clonazepam 1 mg tablet 1 mg PO QID hydroxyzine pamoate 50 mg capsule 50 mg PO QID norethindrone-e.estradiol-iron [Junel FE 04/04 (28)] 1 mg-20 mcg (21)/75 mg (7) tablet 1 tab PO DAILY clonidine HCl 0.2 mg tablet 0.6 mg PO QPM rizatriptan 10 mg tablet,disintegrating 10 mg PO dextroamphetamine-amphetamine 20 mg tablet 1 tab PO 3XD pramipexole 0.125 mg tablet 0.125 mg PO QPM mirtazapine 15 mg tablet 15 mg PO QPM propranolol 20 mg tablet 20 mg PO BID amitriptyline 100 mg tablet 100 mg PO QPM eszopiclone 3 mg tablet 3 mg PO QPM Nurtec ODT 75 mg tablet,disintegrating 75 mg PO DAILY PRN ondansetron HCl 4 mg tablet 4 mg PO Q6H Qty: 20 0RF pantoprazole [Protonix] 20 mg tablet,delayed release (DR/EC) 20 mg PO DAILY Qty: 20 2RF meclizine 25 mg tablet 25 mg PO QID Qty: 20 0RF Follow Up/Referrals: Provider,Not a Local [Referring] - Stand Alone Forms: [facility] Info Instructions
--- NOTE | 2022-12-24 13:37 | ED.NURSE ---
UA collected as ordered by Dr. Hanna. Notable foul urine smell. Specimen brought to lab for analysis.
[2022-12-24 13:39] LABS: Appearance Urine Slightly Cloudy (Clear); Bilirubin Urine Negative (Negative); Blood Urine 3+ (Negative); Color Urine Yellow (Yellow); Glucose Urine Negative (Negative); Ketones Urine Negative (Negative); Leukocyte Esterase Urine 1+ (Negative); Nitrite Urine Positive (Negative); Protein Urine 2+ (Negative); Specific Gravity Urine 1.025 (1.000-1.030); Urobilinogen Urine 0.2 (0.2-1.0)
[2022-12-24 13:49] LABS: Bacteria Urine Many; Hyaline Casts Urine Few (None-Few); Mucus Urine Few; Squamous Epithelial Cell Urine Few (None-Few); WBC Urine 50-100 (0-5)
--- NOTE | 2022-12-24 14:00 | CRLHL7_ITS ---
For Patients: As a result of the Century Cures Act, medical imaging exams and procedure reports are released immediately into your electronic medical record. You may view this report before your referring provider. If you have questions, please contact your health care provider. Indication: Pain. Popping sensation Technique: A total of three views of the right knee were acquired. Comparison: None Findings: Bones: Alignment is normal. No fractures or bone lesions. Joint spaces: Osteoarthritis is noted involving all 3 compartments. This most affects the lateral compartment. No dislocation. Small to moderate joint effusion Soft tissues: No visible intra-articular ossific body Impression: Tricompartmental osteoarthritis most affecting the lateral compartment. No acute fracture, dislocation or destructive process. Small to moderate joint effusion. Dictated by Wilfredo Ro MD @ 12/24/2022 2:52:51 PM (Electronically Signed)
== END 2022-12-24 16:00 | disposition home or self-care (01) ==
PROVIDERS: Emergency Provider Family Medicine; PCP Student in an Organized Health Care Education/Training Program
DX: M17.11 Unilateral primary osteoarthritis, right knee (principal); L72.3 Sebaceous cyst
CPT/HCPCS: 73562; 81001; 87086; 87186; 99284

== ENCOUNTER 2023-01-22 08:04 | Observation (INO) | payer MEDICARE, OTHER, SELFPAY ==
[2023-01-22] VITALS (26 sets, daily range): BP systolic 100–176; BP diastolic 71–146; PULSE 88–122; RESP 12–24; TEMP 36.9–37.4; O2SAT 92–100; BMI 37.3; BMI 36.9
--- NOTE | 2023-01-22 08:27 | ED.NURSE ---
dr sevilla aware of possible stroke and he will assess.
[2023-01-22 09:02] LABS: Basophils Absolute Auto 0.03 K/uL (0.00-0.30); Basophils Percent Auto 0.3 % (0.0-3.0); Eosinophils Percent Auto 0.9 % (0.0-7.0); Immature Granulocytes Abs Auto 0.02 K/uL (0.00-0.30); Immature Granulocytes Pct Auto 0.2 %; Lymphocytes Percent Auto 21.3 % (20-44); Mean Corpuscular HGB Conc 34 gm/dL (32-36); Mean Corpuscular Hemoglobin 31 pg (26-34); Mean Corpuscular Volume 90 fL (80-100); Monocytes Percent Auto 5.7 % (0.0-11.0); Neutrophils Absolute Auto 7.73 K/uL (1.7-7.0); Neutrophils Percent Auto 71.6 % (42.0-72.0); Platelet Count* 288 K/uL (140-440); RDW Coefficient of Variation % 12.5 % (11.5-15.5); Red Blood Count 4.54 m/uL (4.00-5.20)
--- NOTE | 2023-01-22 09:02 | ED.NURSE ---
B mg/dL, taken by EDT at 0849.
[2023-01-22 09:03] LABS: Slide Review Reflex No
--- NOTE | 2023-01-22 09:05 | CRLHL7_ITS ---
For Patients: As a result of the Century Cures Act, medical imaging exams and procedure reports are released immediately into your electronic medical record. You may view this report before your referring provider. If you have questions, please contact your health care provider. Indication: Altered mental status Technique: Volumetric multidetector CT images of the head were obtained without the administration of low osmolar intravenous contrast. Comparison: None available Findings: There is no intra-axial or extra-axial fluid collection. There is no mass effect or midline shift. There is mild global cortical atrophy somewhat greater than expected for age. The ventricles and sulci are otherwise normal in size and position. There is moderate chronic small-vessel disease changes within the subcortical and periventricular white matter. The brain parenchyma is otherwise preserved and attenuation and akers-white differentiation. The orbits and their contents are grossly within normal limits. The bony calvarium is grossly intact. The paranasal sinuses are clear. The mastoid air cells are well aerated. Impression: Mild global cortical atrophy and chronic small vessel disease changes greater than expected for age without acute intracranial abnormality. A report was sent to Dr. Abrams at 9:21 a.m. January 22, 2023 Please note that all CT scans at this facility use dose modulation, iterative reconstruction, and/or weight-based dosing when appropriate to reduce radiation dose to as low as reasonably achievable. Dictated by Bryant Gallego MD @ 01/22/2023 9:30:30 AM (Electronically Signed)
--- NOTE | 2023-01-22 09:07 | CRLHL7_ITS ---
For Patients: As a result of the 21st Century Cures Act, medical imaging exams and procedure reports are released immediately into your electronic medical record. You may view this report before your referring provider. If you have questions, please contact your health care provider. INDICATION: Altered mental status. TECHNIQUE: Brain MRI with contrast. The following sequences were obtained: Sagittal T1 weighted sequence. DWI and ADC mapping sequences. Axial FLAIR, SWI or GRE and NILAM T2 weighted sequences. T1 weighted post-contrast sequences. Magnetic Resonance Angiography of the head and neck with and without contrast. The following sequences were obtained: 3D Time of Flight MRA sequence of the intracranial circulation. 3D Time of Flight and gadolinium bolus MRA sequences of the neck with all measurements are based on NASCET criteria. Maximum Intensity Reconstructions are provided. 20 cc of Dotarem gadolinium based contrast agent was used. COMPARISON: Head CT from 01/22/2023. FINDINGS: MRI Head: No acute infarction. No acute or chronic intracranial blood products. No mass or pathologic intracranial enhancement. A few punctate FLAIR hyperintense foci scattered within the supratentorial white matter, typical for chronic microvascular ischemic changes. No hydrocephalus or extra-axial collections. The pituitary gland, parasellar structures and optic chiasm are normal. Posterior fossa is normal. The orbital contents are normal. No calvarial or skull base marrow signal abnormality. No obstructive sinus disease. No extracranial soft tissue findings. MRA Head: No proximal large vessel occlusion. The anterior cerebral arteries are patent. The middle cerebral arteries are patent. The posterior cerebral arteries are patent. The intradural vertebral arteries and basilar artery are patent. The intracranial internal carotid arteries are patent. No aneurysm or high flow vascular malformation. MRA Neck: There is a 3 vessel configuration of the aortic arch. The brachiocephalic artery is patent. The proximal subclavian arteries are patent. Poor visualization of the right common carotid artery origin, which could be due to artifact or high-grade stenosis. Common carotid arteries are otherwise patent. The internal carotid arteries are patent. Poor visualization of the right vertebral artery origin, which could be due to artifact or true stenosis. The cervical vertebral arteries are otherwise patent. No abnormal dilatation of the major cervical arteries. IMPRESSION: MRI Head: 1. No acute infarction or other acute intracranial pathology. 2. No mass or pathologic intracranial enhancement. 3. Minimal chronic microvascular ischemic changes. MRA Head: 1. No proximal large vessel occlusion or flow-limiting stenosis involving the major intracranial arteries. MRA Neck: 1. Poor visualization of the right common carotid artery origin and right vertebral artery origin, which could be due to artifact or true stenosis. Major cervical arteries are otherwise patent with no flow-limiting stenosis or evidence of dissection. Dictated by Pawel Helms MD @ 01/22/2023 11:54:43 AM (Electronically Signed)
--- NOTE | 2023-01-22 09:07 | CRLHL7_ITS ---
For Patients: As a result of the Cures Act, medical imaging exams and procedure reports are released immediately into your electronic medical record. You may view this report before your referring provider. If you have questions, please contact your health care provider. Dictation for this exam included within the brain MRI report from the same date. Dictated by Pawel Helms MD @ 01/22/2023 11:55:36 AM (Electronically Signed)
--- NOTE | 2023-01-22 09:07 | CRLHL7_ITS ---
For Patients: As a result of the Cures Act, medical imaging exams and procedure reports are released immediately into your electronic medical record. You may view this report before your referring provider. If you have questions, please contact your health care provider. Dictation for this exam included within the brain MRI report from the same date. Dictated by Pawel Helms MD @ 01/22/2023 11:56:47 AM (Electronically Signed)
[2023-01-22 09:09] LABS: Glucose, Point-of-Care* 100 mg/dl (60-115)
[2023-01-22 09:09] LABS: Troponin, Point-of-Care* 0.01 ng/ml (0.01-0.04)
[2023-01-22 09:15] LABS: Albumin* 4.1 g/dL (3.3-5.0)
[2023-01-22 09:16] LABS: Chloride* 110 mmol/L (96-114); Sodium* 145 mmol/L (135-149)
[2023-01-22 09:18] LABS: Anion Gap 11 mEq/L (7-15); Aspartate Amino Transferase* 30 U/L (12-35); Bilirubin Total* 0.2 mg/dL (0.1-1.5); Carbon Dioxide* 24 mmol/L (20-32); Creatinine* 1.1 mg/dL (0.5-1.5); Est. Creatinine Clearance* 62.14; Estimated Glomerular Filt Rate 63 ml/min; Total Protein* 7.4 g/dL (6.0-8.3)
[2023-01-22 09:19] LABS: Alanine Aminotransferase* 21 U/L (4-35); Alkaline Phosphatase* 110 U/L (40-150); Blood Urea Nitrogen* 9 mg/dL (5-24); Calcium* 9.3 mg/dL (8.4-10.6); Glucose* 97 mg/dL (60-115); Magnesium* 1.9 mg/dL (1.5-2.6)
[2023-01-22 09:31] LABS: Troponin I* < 0.01 ng/mL (0.01-0.04)
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
--- NOTE | 2023-01-22 11:38 | ED.NURSE ---
Pt back from MRI.
[2023-01-22 11:59] LABS: Appearance Urine Cloudy (Clear); Bilirubin Urine 1+ (Negative); Blood Urine 3+ (Negative); Color Urine Brown (Yellow); Glucose Urine Negative (Negative); Ketones Urine Negative (Negative); Leukocyte Esterase Urine Trace (Negative); Nitrite Urine Positive (Negative); Protein Urine 2+ (Negative); Specific Gravity Urine >= 1.030 (1.000-1.030); pH Urine 5.5 (5.0-8.5)
[2023-01-22 12:05] LABS: Ur HCG Qualitative* Negative (Negative)
[2023-01-22 12:13] LABS: Amphetamine Screen Urine Negative (Negative); Barbiturate Screen Urine Negative (Negative); Benzodiazepines Screen Urine POSITIVE (Negative); Cannabinoid Screen Urine POSITIVE (Negative); Cocaine Screen Urine Negative (Negative); Methadone Screen Urine Negative (Negative); Methamphetamines Screen Urine Negative (Negative); Opiate Screen Urine Negative (Negative); Oxycodone Screen Urine Negative (Negative); Phencyclidine Screen Urine Negative (Negative); Tricyclic Antidepressant Urine POSITIVE (Negative)
[2023-01-22 12:20] LABS: RBC Urine >100 (0-2); WBC Urine 50-100 (0-5)
[2023-01-22 12:21] LABS: Bacteria Urine Few; Squamous Epithelial Cell Urine Few (None-Few)
[2023-01-22 12:39] LABS: Ethanol* < 0.01 % (0.01-0.03)
--- NOTE | 2023-01-22 13:42 | ED.NURSE ---
consent for lumbar puncture signed by her s/o Miguel. Zuleika is ok with having this procedure done and she stateshe signs for me all the time. Dr Romero has been in contact with neurology and is doing the LP.
--- NOTE | 2023-01-22 16:13 | ED.NURSE ---
Report given to JULIA Hodges. Pt will go to Rm [id number].
--- NOTE | 2023-01-22 16:14 | ED.NURSE ---
Lumbar Puncture completed by Anesthesia, CSF samples sent to lab.
--- NOTE | 2023-01-22 16:14 | ED.NURSE ---
Report given to JULIA Hodges. Pt will go to Rm [id number].
--- NOTE | 2023-01-22 16:14 | ED.NURSE ---
Lumbar Puncture completed by Anesthesia, CSF samples sent to lab.
--- NOTE | 2023-01-22 16:24 | PM.PRCPDLP ---
Lumbar Puncture Procedure Performed by:: LUCRECIA Time Seen by Provider: 15:45 Date Seen: 01/22/23 Date of procedure: 01/22/23 Pre-op diagnosis: altered mental status Position: sitting Prep: chlorhexidine Anesthesia: 1 % Lidocaine Sedation: none Needle size: other (25) Needle length: 3.5 Interspace: L3-4 Number of attempts: 1 Opening pressure: not done Fluids mLs collected: 10 Fluid description: clear Complications: No Patient tolerance: Tolerated the procedure well. Procedure performed by: Yuliet Lutz Condition: stable Disposition: no change
--- NOTE | 2023-01-22 16:26 | W.ANESCHARGE ---
Anesthesia Charges Start Date/Time Anesthesia Start Date: 01/22/23 Anesthesia Start Time: 15:45 Stop Date/Time Anesthesia Stop Date: 01/22/23 Anesthesia Stop Time: 16:15
[2023-01-22 17:09] LABS: CSF Mononuclear Cells 50 %; CSF Polynuclear Cells 50 %; WBC, CSF 2 Cells/uL
[2023-01-22 17:21] LABS: RBC, CSF 1 Cells/uL
[2023-01-22 17:42] LABS: Appearance CSF Clear (Clear); Color CSF Colorless (Colorless)
[2023-01-22 17:43] LABS: Glucose, CSF* 56 Mg/dL (40-70); Total Protein, CSF 34 Mg/dL (15-45)
--- NOTE | 2023-01-22 19:55 | PC.NURSE ---
Nursing Care Hours: [id number] Pt this shift arrived to unit on stretcher. Charge nurse Abigail did admission data and assessment. Business Lawyer assisted pt to bathroom d/t unsteady gait. Pt void and had semi-loose BM. Pt states feeling very thirsty and drank 3 small glasses of water in bathroom. Pt fidgety and talkative. Hospitalist in the room with around 1830, orders pending.
--- NOTE | 2023-01-22 20:46 | P.IMHP_ITS ---
Hospitalist- H&P: HPI History of Present Illness Date Seen: 01/22/23 Chief complaint: can't talk, freezing Narrative: Zuleika Joseph is a 47 year old female with history of migraine, PTSD, depression, anxiety, ADHD, bipolar disorder type 2, history of alcohol abuse, history of narcotic abuse, history of HSV infection, history of traumatic brain injury, chronic pain, irritable bowel syndrome, fibromyalgia admit through the emergency room for onset of altered mental status. Last evening after going out to eat at a restaurant she returned home with her 2 daughters and male friend, Miguel. Shortly after that the daughter's called the friend to report that their mom was walking outside naked. He came over to find her confused and wandering outside without clothes on. She did not sleep during the night last night and because of her continued confusion was brought to the emergency room today. She has no recollection of anything that happened between last evening and coming to the emergency room. She has now returned back to baseline mental status and reports to me that she has episodes like this fairly commonly, about every other month. He has a typically not this severe and more short-lived. She has not ever sought medical attention during 1 of these episodes. Episodes are typically manifested by acute confusion and probably also some amnesia for the event. She is on multiple psychoactive medications and also has a history of substance abuse. She tells me is she is taking her medications as prescribed. She also denies any substance abuse yesterday. She has not recently been ill. She felt entirely normal yesterday. She specifically denies fever, cold, cough, new headache, disturbed vision, numbness, weakness, chest pain, dyspnea, palpitations, syncope, nausea, vomiting, abdominal pain, diarrhea, new urinary problems. She was recently treated for a UTI but is now off antibiotics. She is currently menstruating. Review of Systems Narrative: As above [facility] Medical History (Updated 01/22/23 @ 21:16 by Valeriy Luna MD) Substance use disorder ?F19.90 - Other psychoactive substance use, unspecified, uncomplicated (ICD- 10) Polypharmacy ?Z79.899 - Other assisted (current) drug therapy (ICD-10) Bipolar 2 disorder ?F31.81 - Bipolar II disorder (ICD-10) Neurogenic bladder ?N31.9 - Neuromuscular dysfunction of bladder, unspecified (ICD-10) Alcohol abuse ?F10.10 - Alcohol abuse, uncomplicated (ICD-10) Narcotic abuse ?F11.10 - Opioid abuse, uncomplicated (ICD-10) Chronic pain ?G89.29 - Other chronic pain (ICD-10) Traumatic brain injury ?S06.9XAA - Unspecified intracranial injury with loss of consciousness status unknown, initial encounter (ICD-10) ADHD ?F90.9 - Attention-deficit hyperactivity disorder, unspecified type (ICD-10) Urinary incontinence ?R32 - Unspecified urinary incontinence (ICD-10) Restless legs ?G25.81 - Restless legs syndrome (ICD-10) Irritable bowel syndrome ?K58.9 - Irritable bowel syndrome without diarrhea (ICD-10) Osteoarthritis of right knee ?M17.11 - Unilateral primary osteoarthritis, right knee (ICD-10) Lumbar degenerative disc disease ?M51.36 - Other intervertebral disc degeneration, lumbar region (ICD-10) Gastroesophageal reflux disease ?K21.9 - Gastro-esophageal reflux disease without esophagitis (ICD-10) Anxiety ?F41.9 - Anxiety disorder, unspecified (ICD-10) Depression ?F32.A - Depression, unspecified (ICD-10) PTSD (post-traumatic stress disorder) ?F43.10 - Post-traumatic stress disorder, unspecified (ICD-10) Borderline personality disorder ?F60.3 - Borderline personality disorder (ICD-10) Migraine ?G43.909 - Migraine, unspecified, not intractable, without status migrainosus (ICD-10) Acute bronchitis ?J20.9 - Acute bronchitis, unspecified (ICD-10) Family History (Updated 01/22/23 @ 21:00 by Valeriy Luna MD) Mother COPD (chronic obstructive pulmonary disease) Social History (Updated 01/22/23 @ 21:02 by Valeriy Luna MD) Narrative: Patient lives in [place] with her 2 daughters age 13 and 14. She presents the emergency department with her male friend Miguel. He is healthcare power of ip attorney. She is currently vaping tobacco. She occasionally uses cannabis. She drinks alcohol about once a week Smoking Status: Current some day smoker What tobacco products do you use: cigarettes Do you use any of these nicotine containing products: E-Cigarettes and Vaping Products Second hand tobacco smoke exposure: Yes How often do you have a drink containing alcohol: 2-3 times a week How many standard drinks containing alcohol do you have on a typical day: 5 or 6 AUDIT-C Alcohol total score: 5 Non-prescribed substance use: marijuana (any form) and other Non-prescribed substance use details: on adderall and marijuana-medical service: No Meds Home Medications and Allergies Home Medications Medication Instructions Recorded Confirmed Type amitriptyline 100 mg tablet 100 mg PO HS 07/25/22 01/22/23 History clonazepam 1 mg tablet 1 mg PO QID 07/25/22 01/22/23 History clonidine HCl 0.2 mg tablet 0.6 mg PO HS 07/25/22 01/22/23 History dextroamphetamine-amphetamine 20 1 tab PO TID 07/25/22 01/22/23 History mg tablet hydroxyzine pamoate 50 mg capsule 50 mg PO QID 07/25/22 01/22/23 History norethindrone 1 mg-ethinyl 1 tab PO DAILY 07/25/22 01/22/23 History estradiol 20 mcg (21)-iron 75 mg (7) tablet (04/04 (28)) Home Medication Comments: Patient is unsure of her medications. The following list was generated from [facility] records and the patient's recollection of her current medications. Amitriptyline 100 mg at bedtime Baclofen 20 mg twice daily Clonazepam 1 mg 2 tablets b.i.d. p.r.n.. She does not take this every day. Clonidine 0.2 mg 2 tablets twice daily Cyclobenzaprine 10 mg 2-4 tablets daily as needed. Uncertain how often she takes it. Adderall 20 mg 2 tablets b.i.d. in morning and afternoon Ibuprofen 200 mg approximately 4 tablets daily as needed Meloxicam 15 mg daily Mirtazapine 15 mg at bedtime Oral contraceptive daily Nurtec ODT p.r.n. migraine Pantoprazole 20 mg daily pramipexole 0.125 mg 2 or 3 tablets at bedtime Propranolol 20 mg twice daily Quetiapine 50 mg at bedtime p.r.n. generally not taking this Rizatriptan 10 mg p.r.n. migraine Ventolin inhaler p.r.n. Reports being prescribed zolpidem and Lunesta but says she is no longer taking them uncertain whether she is taking hydroxyzine. Allergies Allergy/AdvReac Type Severity Reaction Status Date / Time morphine Allergy Intermediate burning Verified 07/25/22 16:27 and parylisised lactose Allergy Verified 07/25/22 16:27 Exam Narrative: Exam Narrative: She is alert and appears in no distress. Mood and affect are bright. She is quite talkative. Conversation is somewhat rambling. She is oriented to time and place. Speech is fluent. Head is without apparent trauma. Pupils are dilated but reactive to light. Oropharynx is normal. No mucosal abnormality. Neck is supple without mass or adenopathy. There is no facial asymmetry. Intact sensation in her face. Respirations are clear to auscultation. Cardiovascular: S1, S2, regular rate and rhythm. Abdomen: Bowel sounds active. Abdomen is soft without tenderness or mass. She has 5/5 strength in both upper and lower extremities in shoulder flexion and extension, elbow flexion extension, wrist flexion extension, finger extension and quarantine officer strength, hip flexion, knee flexion and extension, ankle dorsiflexion and plantar flexion and great toe dorsiflexion. No obvious rigidity. Mild fine tremor in her hand. [id number] is normal. No skin rash. Intact peripheral pulses. Good perfusion. Const: Vital Signs, click to edit/add: Vital Signs - 24 hr 01/22/23 08:15 01/22/23 08:32 01/22/23 08:45 Temperature 99.4 F Pulse Rate 100 98 Pulse Rate [Left P ulse Oximeter] Pulse Rate [Pulse Oximeter] 104 H Respiratory Rate 24 14 Blood Pressure 130/105 H Blood Pressure [Le ft Arm] Blood Pressure [Ri ght Forearm] 131/115 H Pulse Oximetry 100 100 [facility] 01/22/23 09:00 01/22/23 09:16 01/22/23 09:30 Temperature Pulse Rate 94 98 96 Pulse Rate [Left P ulse Oximeter] Pulse Rate [Pulse Oximeter] Respiratory Rate 12 14 Blood Pressure 176/96 H 163/146 H Blood Pressure [Le ft Arm] Blood Pressure [Ri ght Forearm] Pulse Oximetry 98 99 100 Oxygen Delivery Me thod 01/22/23 09:45 01/22/23 10:00 01/22/23 10:15 Temperature Pulse Rate 95 88 89 Pulse Rate [Left P ulse Oximeter] Pulse Rate [Pulse Oximeter] Respiratory Rate 12 12 14 Blood Pressure 144/100 H 137/88 140/90 H Blood Pressure [Le ft Arm] Blood Pressure [Ri ght Forearm] Pulse Oximetry 98 98 97 Oxygen Delivery Me thod 01/22/23 10:32 01/22/23 11:55 01/22/23 12:00 Temperature Pulse Rate 91 111 H 119 H Pulse Rate [Left P ulse Oximeter] Pulse Rate [Pulse Oximeter] Respiratory Rate 12 12 14 Blood Pressure 137/88 124/86 156/71 H Blood Pressure [Le ft Arm] Blood Pressure [Ri ght Forearm] Pulse Oximetry 97 97 97 Oxygen Delivery Me thod 01/22/23 12:02 01/22/23 12:16 01/22/23 12:32 Temperature Pulse Rate 117 H 109 H 105 H Pulse Rate [Left P ulse Oximeter] Pulse Rate [Pulse Oximeter] Respiratory Rate 12 16 16 Blood Pressure 151/89 H 139/100 H 128/85 Blood Pressure [Le ft Arm] Blood Pressure [Ri ght Forearm] Pulse Oximetry 92 99 98 Oxygen Delivery [place] thod 01/22/23 12:47 01/22/23 13:02 01/22/23 13:17 Temperature Pulse Rate 103 H 104 H 112 H Pulse Rate [Left P ulse Oximeter] Pulse Rate [Pulse Oximeter] Respiratory Rate 14 14 12 Blood Pressure 128/114 H 119/85 100/87 Blood Pressure [Le ft Arm] Blood Pressure [Ri ght Forearm] Pulse Oximetry 97 97 95 Oxygen Delivery Ky thod 01/22/23 13:32 01/22/23 13:33 01/22/23 16:10 Temperature Pulse Rate 109 H 107 H 107 H Pulse Rate [Left P ulse Oximeter] Pulse Rate [Pulse Oximeter] Respiratory Rate 14 12 Blood Pressure 118/97 H 141/128 H Blood Pressure [Le ft Arm] Blood Pressure [Ri ght Forearm] Pulse Oximetry 96 96 96 Oxygen Delivery Me thod 01/22/23 16:30 Temperature 98.7 F Pulse Rate Pulse Rate [Left P ulse Oximeter] 114 H Pulse Rate [Pulse Oximeter] Respiratory Rate 18 Blood Pressure Blood Pressure [Le ft Arm] 174/106 H Blood Pressure [Ri ght Forearm] Pulse Oximetry 100 Oxygen Delivery Me thod Room Air Documenting provider has reviewed patient's vital signs: yes Hospitalist - H&P: Result Labs Labs: Short CBC 01/22/23 Range/Units 08:47 WBC 10.80 (4.50-11.00) K/uL Hgb 14.0 (12.0-16.0) gm/dL Hct 41.0 (33.0-51.0) % Plt Count 288 (140-440) K/uL BMP 01/22/23 08:47 Sodium 145 Potassium 4.0 Chloride 110 Carbon Dioxide 24 BUN 9 Creatinine 1.1 Glucose 97 Calcium 9.3 Cardiac Enzymes 01/22/23 Range/Units 08:47 Troponin I < 0.01 L (0.01-0.04) ng/mL Liver Function 01/22/23 Range/Units 08:47 Total Bilirubin 0.2 (0.1-1.5) mg/dL AST 30 (12-35) U/L ALT 21 (4-35) U/L Alkaline Phosphatase 110 (40-150) U/L Albumin 4.1 (3.3-5.0) g/dL Urine 01/22/23 Range/Units 11:50 Urine Color Brown A (Yellow) Urine Appearance Cloudy A (Clear) Urine pH 5.5 (5.0-8.5) Ur Specific Blanchard >= 1.030 (1.000-1.030) Urine Protein 2+ A (Negative) Urine Glucose (UA) Negative (Negative) Imaging MRI - head: Radiologist's impression: INDICATION: Altered mental status. TECHNIQUE: Brain MRI with contrast. The following sequences were obtained: Sagittal T1 weighted sequence. DWI and ADC mapping sequences. Axial FLAIR, SWI or GRE and NILAM T2 weighted sequences. T1 weighted post-contrast sequences. Magnetic Resonance Angiography of the head and neck with and without contrast. The following sequences were obtained: 3D Time of Flight MRA sequence of the intracranial circulation. 3D Time of Flight and gadolinium bolus MRA sequences of the neck with all measurements are based on NASCET criteria. Maximum Intensity Reconstructions are provided. 20 cc of Dotarem gadolinium based contrast agent was used. COMPARISON: Head CT from 01/22/2023. FINDINGS: MRI Head: No acute infarction. No acute or chronic intracranial blood products. No mass or pathologic intracranial enhancement. A few punctate FLAIR hyperintense foci scattered within the supratentorial white matter, typical for chronic microvascular ischemic changes. No hydrocephalus or extra-axial collections. The pituitary gland, parasellar structures and optic chiasm are normal. Posterior fossa is normal. The orbital contents are normal. No calvarial or skull base marrow signal abnormality. No obstructive sinus disease. No extracranial soft tissue findings. MRA Head: No proximal large vessel occlusion. The anterior cerebral arteries are patent. The middle cerebral arteries are patent. The posterior cerebral arteries are patent. The intradural vertebral arteries and basilar artery are patent. The intracranial internal carotid arteries are patent. No aneurysm or high flow vascular malformation. MRA Neck: There is a 3 vessel configuration of the aortic arch. The brachiocephalic artery is patent. The proximal subclavian arteries are patent. Poor visualization of the right common carotid artery origin, which could be due to artifact or high-grade stenosis. Common carotid arteries are otherwise patent. The internal carotid arteries are patent. Poor visualization of the right vertebral artery origin, which could be due to artifact or true stenosis. The cervical vertebral arteries are otherwise patent. No abnormal dilatation of the major cervical arteries. IMPRESSION: MRI Head: 1. No acute infarction or other acute intracranial pathology. 2. No mass or pathologic intracranial enhancement. 3. Minimal chronic microvascular ischemic changes. MRA Head: 1. No proximal large vessel occlusion or flow-limiting stenosis involving the major intracranial arteries. MRA Neck: 1. Poor visualization of the right common carotid artery origin and right vertebral artery origin, which could be due to artifact or true stenosis. Major cervical arteries are otherwise patent with no flow-limiting stenosis or evidence of dissection. Assessment and Plan Assessment and plan (1) Altered mental status: Problem comment: The cause of altered mental status is uncertain. This is probably part of a chronic recurrent problem based on history. Stroke evaluation is reassuring. She has fully recovered to her baseline. I suspect there is an underlying mental health problem contributing to this. Polypharmacy and substance use may also be contributing. Status: Acute (2) Polypharmacy: Problem comment: Recommend outpatient psychiatry management Status: Acute (3) Substance use disorder: Problem comment: Unclear if this is playing a role at this time Status: Acute (4) Bipolar 2 disorder: Problem comment: Diagnosis obtained from medical records. Patient gives a history of being quite activated with anxiety and insomnia recently Status: Acute (5) Chronic pain: Problem comment: Continues to be a problem. Patient requesting treatment for her right knee pa in. Status: Acute (6) ADHD: Status: Acute (7) Anxiety: Status: Acute (8) Depression: Status: Acute (9) PTSD (post-traumatic stress disorder): Status: Acute (10) Borderline personality disorder: Problem comment: Diagnosis is obtained from medical records Status: Acute Plan She will be observed in the hospital overnight with monitoring of her mental status. If she remains close to baseline mental status I think she can be discharged for outpatient follow-up. Specifically recommending psychiatry follow-up and addressing polypharmacy. I have encouraged her to routinely take her Seroquel. She is reluctant to do this because it makes her feel too tired. Total time spent is 90 minutes, 60 minutes in coordination of care and discussing with patient, friend and other providers ongoing evaluation management of altered mental status, polypharmacy.
[2023-01-22] MEDS: IBUPROFEN 400 MG TABLET PO (21:07)
[2023-01-22] MEDS: QUETIAPINE 25 MG TABLET PO (21:07)
[2023-01-22] MEDS: BACLOFEN 10 MG TABLET 20 MG PO (21:07)
[2023-01-22] MEDS: cloNIDine HCL 0.1 MG TABLET 0.6 MG PO (21:07)
[2023-01-22] MEDS: MIRTAZAPINE 15 MG TABLET PO (21:07)
[2023-01-22] MEDS: SODIUM CHLORIDE 0.9 % (FLUSH) 10 ML SYRINGE 5 ML IVF (21:18)
[2023-01-22] MEDS: PRAMIPEXOLE 0.25 MG TABLET PO (22:08)
[2023-01-22] MEDS: AMITRIPTYLINE HCL 10 MG TABLET 100 MG PO (22:09)
[2023-01-22] MEDS: hydrOXYzine pamoate 25 MG CAPSULE 50 MG PO (23:16)
[2023-01-22] MEDS: clonazePAM 0.5 MG TABLET 1 MG PO (23:16)
[2023-01-23 04:02] VITALS: RESP 15
[2023-01-23] MEDS: IBUPROFEN 400 MG TABLET PO (04:28)
[2023-01-23] MEDS: clonazePAM 0.5 MG TABLET 1 MG PO (04:28)
--- NOTE | 2023-01-23 05:55 | PC.NURSE ---
End of shift [id number]: Patient is cooperative with cares. Pain reported to bilateral lower extremities, mid back and headache reported. Pain is managed with scheduled medications and PRN's. Patient restless and fidgeting in the bed, legs continuously moving and patient unable to sit/lay with arms still. Speech is coherent, patient is very expressive when talking and speech is fast with difficulty following change from one subject to the next. Alert, oriented to self, place, month and year, patient unable to recall date. Per patient she states I haven't slept for several days, i was so tired that this morning that I walked outside naked and i don't recall doing that. Dr. Luna notified of patients tachycardia and elevated blood pressures. MD would like CIWA's completed per protocol, patient CIWA at 2220 was 11, patient checked hourly for 4 hours and CIWA reduced to 6 after one hour and maintained at 6. Ambulates with SBA, continent of bladder and bowel. Slept well after receiving PRN klonopin per MD recommendation.
[2023-01-23 07:00] VITALS: BP 140/98; PULSE 110; PULSE 99; RESP 18; TEMP 36.6; O2SAT 100
[2023-01-23] MEDS: OMEPRAZOLE 20 MG CAPSULE DR PO (08:54)
[2023-01-23] MEDS: BACLOFEN 10 MG TABLET 20 MG PO (08:54)
[2023-01-23] MEDS: SODIUM CHLORIDE 0.9 % (FLUSH) 10 ML SYRINGE 5 ML IVF (08:55)
[2023-01-23] MEDS: ACETAMINOPHEN 325 MG TABLET 650 MG PO (08:55)
[2023-01-23] MEDS: cloNIDine HCL 0.1 MG TABLET 0.4 MG PO (08:55)
--- NOTE | 2023-01-23 12:20 | P.DS_ITS ---
DS: Providers Provider Date Seen: 01/23/23 Date of admission: 01/22/23 16:19 Primary care physician: MARLENA PITTMAN DO Admitting Clinician: Valeriy Luna MD Attending Physician on discharge: Elza Olivia [facility] [place] [facility] Date of Discharge: 01/23/23 DS: Diagnosis Discharge Diagnosis (1) Altered mental status: Status: Acute Problem details: The cause of altered mental status is uncertain. This is probably part of a chronic recurrent problem based on history. Stroke evaluation is reassuring. She has fully recovered to her baseline. I suspect there is an underlying mental health problem contributing to this. Polypharmacy and substance use may also be contributing. (2) Bipolar 2 disorder: Status: Acute Problem details: Diagnosis obtained from medical records. Patient gives a history of being quite activated with anxiety and insomnia recently. Concerning for increasing manic phase. Encouraged to take prescription medications as prescribed. Will cut dose of Seroquel from 50 mg to 25 mg at bedtime as this triggers her PTSD and she has otherwise not been taking it. She will need close follow-up with her psychiatrist for further medication management and recommendations. (3) Substance use disorder: Status: Acute Problem details: Unclear if this is playing a role at this time. History of taking unprescribed pills. Urine drug screen unremarkable other than what would be expected given her prescription medications. (4) Chronic pain: Status: Acute Problem details: Recommend outpatient follow-up with PCP for ongoing management. Recommend outpatient pain clinic evaluation. DS: Summary Hospital Course Hospital Course: [age] year old female past medical history significant for bipolar disorder, borderline personality disorder, ADHD, substance use disorder, polypharmacy, chronic pain, migraines, irritable bowel syndrome was admitted to the medical floor for acute altered mental state, resolved at time of admission. Course of care and details as noted above. Status at Discharge Cognitive/behavioral status at discharge: Back to most recent baseline, evidence of manic phase. Time Spent with Patient Time attestation: Total time spent providing and/or coordinating discharge services: Time spent: Greater than 30 minutes Exam Narrative: Exam Narrative: PHYSICAL EXAM General: Pleasant, NAD HEENT: Normocephalic, atraumatic, sclera white, EOMI, oral mucosa moist Cardiovascular: RRR, S1S2. Pulmonary: No dyspnea Neurological: Alert, mildly pressured speech, tangential. Appears to be mild manic phase Skin: Exposed skin warm, dry. Const: Vital Signs, click to edit/add: Vital Signs - 24 hr 01/22/23 12:32 01/22/23 12:47 01/22/23 13:02 Temperature Pulse Rate 105 H 103 H 104 H Pulse Rate [Left P ulse Oximeter] Pulse Rate [Right Pulse Oximeter] Respiratory Rate 16 14 14 Blood Pressure 128/85 128/114 H 119/85 Blood Pressure [Le ft Arm] Pulse Oximetry 98 97 97 Oxygen Delivery Me thod 01/22/23 13:17 01/22/23 13:32 01/22/23 13:33 Temperature Pulse Rate 112 H 109 H 107 H Pulse Rate [Left P ulse Oximeter] Pulse Rate [Right Pulse Oximeter] Respiratory Rate 12 14 Blood Pressure 100/87 118/97 H Blood Pressure [Le ft Arm] Pulse Oximetry 95 96 96 Oxygen Delivery Me thod 01/22/23 16:10 01/22/23 16:30 01/22/23 19:00 Temperature 98.7 F 98.5 F Pulse Rate 107 H Pulse Rate [Left P ulse Oximeter] 114 H 122 H Pulse Rate [Right Pulse Oximeter] Respiratory Rate 12 18 22 Blood Pressure 141/128 H Blood Pressure [Le ft Arm] 174/106 H 141/98 H Pulse Oximetry 96 100 98 Oxygen Delivery Me thod Room Air Room Air 01/22/23 23:00 01/22/23 23:00 01/22/23 23:00 Temperature 98.5 F Pulse Rate 106 H Pulse Rate [Left P ulse Oximeter] 114 H Pulse Rate [Right Pulse Oximeter] 114 H Respiratory Rate 20 Blood Pressure Blood Pressure [Le ft Arm] 151/107 H Pulse Oximetry 98 Oxygen Delivery Pa thod Room Air 01/22/23 23:22 01/22/23 23:30 01/23/23 04:02 Temperature 98.5 F Pulse Rate Pulse Rate [Left P ulse Oximeter] Pulse Rate [Right Pulse Oximeter] 114 H Respiratory Rate 20 20 15 Blood Pressure Blood Pressure [Le ft Arm] 151/107 H Pulse Oximetry 98 Oxygen Delivery Pa thod Room Air 01/23/23 07:00 01/23/23 07:00 Temperature 97.8 F Pulse Rate 99 Pulse Rate [Left P ulse Oximeter] Pulse Rate [Right Pulse Oximeter] 110 H Respiratory Rate 18 Blood Pressure Blood Pressure [Le ft Arm] 140/98 H Pulse Oximetry 100 Oxygen Delivery Me thod Room Air DS: Data Data Completed and Pending Labs on day of discharge: Labs from last 24 hours 01/22/23 01/22/23 01/22/23 19:12 15:38 14:37 TSH Urine Color Urine Appearance Urine pH Ur Specific Firestone Urine Protein Urine Glucose (UA) Urine Ketones Urine Blood Urine Nitrite Urine Bilirubin Urine Urobilinogen Ur Leukocyte Esterase Urine RBC Urine WBC Ur Squamous Epith Cells Urine Bacteria Urine HCG, Qual CSF Volume 8.0 H CSF Appearance Clear CSF Color Colorless CSF WBC 2 CSF RBC 1 CSF Mononuclear Cells 50 CSF Polynuclear WBCs 50 CSF Glucose 56 CSF Total Protein 34 Urine Opiates Screen Ur Oxycodone Screen Urine Methadone Screen Ur Propoxyphene Screen Ur Barbiturates Screen U Tricyclic Antidepress Ur Phencyclidine Scrn Ur Amphetamines Screen U Methamphetamines Scrn U Benzodiazepines Scrn Urine Cocaine Screen U Marijuana (THC) Screen Ethyl Alcohol HSV Source Description Pending HSV I (PCR) Pending HSV II (PCR) Pending Lab Acknowledgement Test Added Test Added 01/22/23 01/22/23 01/22/23 12:28 11:50 08:47 TSH 1.380 Urine Color Brown A Urine Appearance Cloudy A Urine pH 5.5 Ur Specific Firestone >= 1.030 Urine Protein 2+ A Urine Glucose (UA) Negative Urine Ketones Negative Urine Blood 3+ A Urine Nitrite Positive A Urine Bilirubin 1+ A Urine Urobilinogen 1.0 Ur Leukocyte Esterase Trace A Urine RBC >100 A Urine WBC 50-100 A Ur Squamous Epith Cells Few Urine Bacteria Few A Urine HCG, Qual Negative CSF Volume CSF Appearance CSF Color CSF WBC CSF RBC CSF Mononuclear Cells CSF Polynuclear WBCs CSF Glucose CSF Total Protein Urine Opiates Screen Negative Ur Oxycodone Screen Negative Urine Methadone Screen Negative Ur Propoxyphene Screen Not Reportable Ur Barbiturates Screen Negative U Tricyclic Antidepress POSITIVE A Ur Phencyclidine Scrn Negative Ur Amphetamines Screen Negative U Methamphetamines Scrn Negative U Benzodiazepines Scrn POSITIVE A Urine Cocaine Screen Negative U Marijuana (THC) Screen POSITIVE A Ethyl Alcohol < 0.01 L HSV Source Description HSV I (PCR) HSV II (PCR) Lab Acknowledgement Test Added Preliminary micro results at discharge 01/22/23 Unknown Urine Culture - Preliminary Urine,Clean Catch Gram negative joo 01/22/23 15:38 Body Fluid Culture - Preliminary Cerebrospinal Fluid Culture in Progress Discharge Plan Discharge Disposition: Home, Self-Care Date of Admission: 01/22/23 16:19 Attending Provider on Discharge: Elza Olivia Primary Care Provider: MARLENA PITTMAN Condition: Improved Anticipated Discharge Date/Time: 01/23/23 10:37 Discharge Medications: New quetiapine 25 mg Tablet 25 mg PO HS Qty: 14 0RF Continued baclofen 20 mg tablet 20 mg PO BID cyclobenzaprine 10 mg tablet 10 mg PO TID PRN dextroamphetamine-amphetamine [Adderall] 20 mg tablet 40 mg PO BID meloxicam 15 mg tablet 15 mg PO DAILY pramipexole 0.125 mg tablet 0.25 - 0.375 mg PO HS mirtazapine 15 mg tablet 15 mg PO QPM clonazepam 1 mg tablet 2 mg PO BID PRN norethindrone-e.estradiol-iron [Junel FE 04/04 (28)] 1 mg-20 mcg (21)/75 mg (7) tablet 1 tab PO DAILY clonidine HCl 0.2 mg tablet 0.4 mg PO BID amitriptyline 100 mg tablet 100 mg PO HS pantoprazole [Protonix] 20 mg tablet,delayed release (DR/EC) 20 mg PO DAILY Qty: 20 2RF Discontinued quetiapine 50 mg tablet 50 mg PO HS PRN Discharge Orders: Discharge Order (Routine); Ordered 01/23/23 Ordered By: Elza Olivia Patient Education: Quetiapine (By mouth), Bipolar Disorder (GEN), Altered Mental Status (GEN) Additional Instructions: Your episode of altered mental status has resolved, however, we are concerned that your bipolar disorder is not currently adequately managed and you may be experiencing more manic episodes. It is important you take all of your medications as prescribed without missing doses. For now, take a smaller dose of Seroquel at bedtime (25mg) until you are able to discuss your concern for side effects with your psychiatrist. Avoid taking any medications/pills that are not prescribed for you. It is important you speak with your mental health team as soon as possible, call them today, for further medication management. Follow up with your PCP for ongoing management of your chronic pain. Recommend consult with Pain Clinic. You may use an over the counter Lidocaine patch daily as needed. Activity Level: No Restrictions Discharge Diet: Regular Follow Up Appointments: MARLENA PITTMAN DO [Primary Care Provider] - 01/28/23 11:00 am ([facility] for post hospital follow up for altered mental status, poorly controlled bipolar disorder, chronic pain. Recommend close follow up with mental health team. Recommend pain clinic consult. ) Forms: [employer] Info Instructions
[2023-01-23] MEDS: LIDOCAINE 5% PATCH 1 PATCH TRANSDERMA (12:21)
--- NOTE | 2023-01-23 14:22 | PC.NURSE ---
Discharge Note: The patient discharged home with her S/o Adamaris I wheeled her out to his car. All discharge information regarding follow up with her primary and the psychologist were included in the discharge orders. Iv was removed. Patient was sent home with all of her belongings as well. I applied a lidocaine patch to her upper back for chronic pain prior to discharge, they were instructed to take it off after 12 hrs. Briseida LI RN
[2023-01-26 00:51] LABS: HSV 1 Subtype by PCR Not Detected; HSV 2 Subtype by PCR Not Detected; Herpes Simplex Subtype Source CSF
== END 2023-01-23 12:47 | disposition home or self-care (01) ==
LOC: ED 16:03 → MEDSURG 16:20
PROVIDERS: Admitting Provider Family Medicine; Emergency Provider Student in an Organized Health Care Education/Training Program; PCP Student in an Organized Health Care Education/Training Program; Visit Provider Family Medicine
DX: R41.82 Altered mental status, unspecified (principal); F19.90 Other psychoactive substance use, unspecified, uncomplicated; F31.81 Bipolar II disorder; M79.7 Fibromyalgia; G89.29 Other chronic pain; F90.9 Attention-deficit hyperactivity disorder, unspecified type; F60.3 Borderline personality disorder; F43.10 Post-traumatic stress disorder, unspecified; F10.10 Alcohol abuse, uncomplicated; F41.9 Anxiety disorder, unspecified; G47.00 Insomnia, unspecified; Z79.899 Other long term (current) drug therapy; F12.90 Cannabis use, unspecified, uncomplicated; F17.210 Nicotine dependence, cigarettes, uncomplicated; F17.290 Nicotine dependence, other tobacco product, uncomplicated; Z87.820 Personal history of traumatic brain injury; Z87.440 Personal history of urinary (tract) infections; Z87.898 Personal history of other specified conditions
CPT/HCPCS: 00635; 36415; 62270; 70450; 70544; 70549; 70553; 80053; 80306; 81001; 81025; 82077; 82945; 82947; 83735; 84157; 84443; 84484; 85025; 87070; 87086; 87186; 87205; 87529; 89051; 93005; 99283; 99285; G0378; A9270; A9575

== ENCOUNTER 2023-02-09 20:09 | Emergency (ER) | payer MEDICARE, OTHER, SELFPAY ==
[2023-02-09 20:23] VITALS: BP 175/108; PULSE 90; RESP 18; TEMP 36.7; O2SAT 98; BMI 38.0
--- NOTE | 2023-02-09 20:36 | ED_ITS ---
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 Color Yellow (Yellow) Urine Appearance Clear (Clear) Urine pH 6.0 (5.0-8.5) Ur Specific Stanley >= 1.030 (1.000-1.030) Urine Protein Negative (Negative) Urine Glucose (UA) Negative (Negative) Urine Ketones Negative (Negative) Urine Blood 2+ A (Negative) Urine Nitrite Positive A (Negative) Urine Bilirubin Negative (Negative) Urine Urobilinogen 0.2 (0.2-1.0) Ur Leukocyte Esterase Negative (Negative) Urine RBC 0-2 (0-2) Urine WBC 0-2 (0-5) Ur Squamous Epith Cells Few (None-Few) Urine Bacteria Many A (None) Salicylates < 1.0 L (1.0-10) mg/dL Urine Opiates Screen Negative (Negative) Ur Oxycodone Screen Negative (Negative) Urine Methadone Screen Negative (Negative) Ur Propoxyphene Screen Negative (Negative) Acetaminophen < 10.0 L (10.0-30.0) ug/mL Ur Barbiturates Screen Negative (Negative) U Tricyclic Antidepress POSITIVE A (Negative) Ur Phencyclidine Scrn Negative (Negative) Ur Amphetamines Screen Negative (Negative) U Methamphetamines Scrn Negative (Negative) U Benzodiazepines Scrn Negative (Negative) Urine Cocaine Screen Negative (Negative) U Marijuana (THC) Screen POSITIVE A (Negative) Ur Drug Screen Comment See Note Ethyl Alcohol < 0.01 L (0.01-0.03) % SARS-CoV-2 (PCR) Negative SARS-CoV-2 (Negative) Influenza Type A (PCR) Negative PCR FLU A (Negative) Influenza Type B (PCR) Negative PCR FLU B (Negative) RSV (PCR) Negative PCR RSV (Negative) Lab Acknowledgement 02/09/23 02/09/23 02/09/23 Range/Units 22:18 22:50 Unknown WBC (4.50-11.00) K/uL RBC (4.00-5.20) m/uL Hgb (12.0-16.0) gm/dL Hct (33.0-51.0) % MCV (80-100) fL MCH (26-34) pg MCHC (32-36) gm/dL RDW Coeff of Aruna (11.5-15.5) % Plt Count (140-440) K/uL Neut % (Auto) (42.0-72.0) % Lymph % (Auto) (20-44) % Crockett % (Auto) (0.0-11.0) % Eos % (Auto) (0.0-7.0) % Baso % (Auto) (0.0-3.0) % Neut # (Auto) (1.7-7.0) K/uL Lymph # (Auto) (0.90-2.90) K/uL Crockett # (Auto) (0.00-0.90) K/UL Eos # (Auto) (0.00-0.50) K/uL Baso # (Auto) (0.00-0.30) K/uL Abs Immat Gran (auto) (0.00-0.30) K/uL Imm/Tot Granulo (auto) % Sodium (135-149) mmol/L Potassium (3.6-5.1) mmol/L Chloride (96-114) mmol/L Carbon Dioxide (20-32) mmol/L Anion Gap (7-15) mEq/L BUN (5-24) mg/dL Creatinine (0.5-1.5) mg/dL Estimated Creat Clear Estimated GFR ml/min Glucose (60-115) mg/dL Lactate 0.8 (0.5-1.9) mmol/L Calcium (8.4-10.6) mg/dL Ionized Calcium Yg 1.02 L (1.11-1.30) mmol/L Magnesium (1.5-2.6) mg/dL Total Bilirubin (0.1-1.5) mg/dL AST (12-35) U/L ALT (4-35) U/L Alkaline Phosphatase (40-150) U/L Total Protein (6.0-8.3) g/dL Albumin (3.3-5.0) g/dL Lipase (23-300) U/L 25-OH Vitamin D Total 29 L (30-80) ng/mL PTH Intact (15-65) pg/mL Urine Color (Yellow) Urine Appearance (Clear) Urine pH (5.0-8.5) Ur Specific Stanley (1.000-1.030) Urine Protein (Negative) Urine Glucose (UA) (Negative) Urine Ketones (Negative) Urine Blood (Negative) Urine Nitrite (Negative) Urine Bilirubin (Negative) Urine Urobilinogen (0.2-1.0) Ur Leukocyte Esterase (Negative) Urine RBC (0-2) Urine WBC (0-5) Ur Squamous Epith Cells (None-Few) Urine Bacteria (None) Salicylates (1.0-10) mg/dL Urine Opiates Screen (Negative) Ur Oxycodone Screen (Negative) Urine Methadone Screen (Negative) Ur Propoxyphene Screen (Negative) Acetaminophen (10.0-30.0) ug/mL Ur Barbiturates Screen (Negative) U Tricyclic Antidepress (Negative) Ur Phencyclidine Scrn (Negative) Ur Amphetamines Screen (Negative) U Methamphetamines Scrn (Negative) U Benzodiazepines Scrn (Negative) Urine Cocaine Screen (Negative) U Marijuana (THC) Screen (Negative) Ur Drug Screen Comment Ethyl Alcohol (0.01-0.03) % SARS-CoV-2 (PCR) (Negative) Influenza Type A (PCR) (Negative) Influenza Type B (PCR) (Negative) RSV (PCR) (Negative) Lab Acknowledgement Test Added 02/10/23 Range/Units 06:48 WBC (4.50-11.00) K/uL RBC (4.00-5.20) m/uL Hgb (12.0-16.0) gm/dL Hct (33.0-51.0) % MCV (80-100) fL MCH (26-34) pg MCHC (32-36) gm/dL RDW Coeff of Aruna (11.5-15.5) % Plt Count (140-440) K/uL Neut % (Auto) (42.0-72.0) % Lymph % (Auto) (20-44) % Crockett % (Auto) (0.0-11.0) % Eos % (Auto) (0.0-7.0) % Baso % (Auto) (0.0-3.0) % Neut # (Auto) (1.7-7.0) K/uL Lymph # (Auto) (0.90-2.90) K/uL Crockett # (Auto) (0.00-0.90) K/UL Eos # (Auto) (0.00-0.50) K/uL Baso # (Auto) (0.00-0.30) K/uL Abs Immat Gran (auto) (0.00-0.30) K/uL Imm/Tot Granulo (auto) % Sodium 127 L (135-149) mmol/L Potassium 4.2 (3.6-5.1) mmol/L Chloride 96 (96-114) mmol/L Carbon Dioxide 26 (20-32) mmol/L Anion Gap 5 L (7-15) mEq/L BUN 4 L (5-24) mg/dL Creatinine 0.7 (0.5-1.5) mg/dL Estimated Creat Clear 101.30 Estimated GFR 108 ml/min Glucose 100 (60-115) mg/dL Lactate (0.5-1.9) mmol/L Calcium 7.5 L (8.4-10.6) mg/dL Ionized Calcium Yg (1.11-1.30) mmol/L Magnesium 1.8 (1.5-2.6) mg/dL Total Bilirubin (0.1-1.5) mg/dL AST (12-35) U/L ALT (4-35) U/L Alkaline Phosphatase (40-150) U/L Total Protein (6.0-8.3) g/dL Albumin (3.3-5.0) g/dL Lipase (23-300) U/L 25-OH Vitamin D Total (30-80) ng/mL PTH Intact (15-65) pg/mL Urine Color (Yellow) Urine Appearance (Clear) Urine pH (5.0-8.5) Ur Specific Stanley (1.000-1.030) Urine Protein (Negative) Urine Glucose (UA) (Negative) Urine Ketones (Negative) Urine Blood (Negative) Urine Nitrite (Negative) Urine Bilirubin (Negative) Urine Urobilinogen (0.2-1.0) Ur Leukocyte Esterase (Negative) Urine RBC (0-2) Urine WBC (0-5) Ur Squamous Epith Cells (None-Few) Urine Bacteria (None) Salicylates (1.0-10) mg/dL Urine Opiates Screen (Negative) Ur Oxycodone Screen (Negative) Urine Methadone Screen (Negative) Ur Propoxyphene Screen (Negative) Acetaminophen (10.0-30.0) ug/mL Ur Barbiturates Screen (Negative) U Tricyclic Antidepress (Negative) Ur Phencyclidine Scrn (Negative) Ur Amphetamines Screen (Negative) U Methamphetamines Scrn (Negative) U Benzodiazepines Scrn (Negative) Urine Cocaine Screen (Negative) U Marijuana (THC) Screen (Negative) Ur Drug Screen Comment Ethyl Alcohol (0.01-0.03) % SARS-CoV-2 (PCR) (Negative) Influenza Type A (PCR) (Negative) Influenza Type B (PCR) (Negative) RSV (PCR) (Negative) Lab Acknowledgement <Valorie Corral MD - Last Filed: 02/10/23 01:11> Lab Results 02/09/23 02/09/23 02/09/23 Range/Units 20:31 20:57 21:02 WBC 11.32 H (4.50-11.00) K/uL RBC 3.78 L (4.00-5.20) m/uL Hgb 11.5 L (12.0-16.0) gm/dL Hct 35.0 (33.0-51.0) % MCV 93 (80-100) fL MCH 30 (26-34) pg MCHC 33 (32-36) gm/dL RDW Coeff of Aruna 12.2 (11.5-15.5) % Plt Count 216 (140-440) K/uL Neut % (Auto) 54.2 (42.0-72.0) % Lymph % (Auto) 38.6 (20-44) % Crockett % (Auto) 4.9 (0.0-11.0) % Eos % (Auto) 1.8 (0.0-7.0) % Baso % (Auto) 0.4 (0.0-3.0) % Neut # (Auto) 6.10 (1.7-7.0) K/uL Lymph # (Auto) 4.40 H (0.90-2.90) K/uL Crockett # (Auto) 0.60 (0.00-0.90) K/UL Eos # (Auto) 0.20 (0.00-0.50) K/uL Baso # (Auto) 0.00 (0.00-0.30) K/uL Abs Immat Gran (auto) 0.00 (0.00-0.30) K/uL Imm/Tot Granulo (auto) 0.1 % Sodium 128 L (135-149) mmol/L Potassium 2.8 L* (3.6-5.1) mmol/L Chloride 96 (96-114) mmol/L Carbon Dioxide 22 (20-32) mmol/L Anion Gap 10 (7-15) mEq/L BUN 7 (5-24) mg/dL Creatinine 0.7 (0.5-1.5) mg/dL Estimated Creat Clear 101.30 Estimated GFR 108 ml/min Glucose 89 (60-115) mg/dL Lactate (0.5-1.9) mmol/L Calcium 7.4 L (8.4-10.6) mg/dL Ionized Calcium Yg (1.11-1.30) mmol/L Magnesium 1.4 L (1.5-2.6) mg/dL Total Bilirubin 0.2 (0.1-1.5) mg/dL AST 19 (12-35) U/L ALT 15 (4-35) U/L Alkaline Phosphatase 71 (40-150) U/L Total Protein 6.2 (6.0-8.3) g/dL Albumin 3.4 (3.3-5.0) g/dL Lipase 68 (23-300) U/L 25-OH Vitamin D Total (30-80) ng/mL PTH Intact 85 H (15-65) pg/mL Urine Color Yellow (Yellow) Urine Appearance Clear (Clear) Urine pH 6.0 (5.0-8.5) Ur Specific Stanley >= 1.030 (1.000-1.030) Urine Protein Negative (Negative) Urine Glucose (UA) Negative (Negative) Urine Ketones Negative (Negative) Urine Blood 2+ A (Negative) Urine Nitrite Positive A (Negative) Urine Bilirubin Negative (Negative) Urine Urobilinogen 0.2 (0.2-1.0) Ur Leukocyte Esterase Negative (Negative) Urine RBC 0-2 (0-2) Urine WBC 0-2 (0-5) Ur Squamous Epith Cells Few (None-Few) Urine Bacteria Many A (None) Salicylates < 1.0 L (1.0-10) mg/dL Urine Opiates Screen Negative (Negative) Ur Oxycodone Screen Negative (Negative) Urine Methadone Screen Negative (Negative) Ur Propoxyphene Screen Negative (Negative) Acetaminophen < 10.0 L (10.0-30.0) ug/mL Ur Barbiturates Screen Negative (Negative) U Tricyclic Antidepress POSITIVE A (Negative) Ur Phencyclidine Scrn Negative (Negative) Ur Amphetamines Screen Negative (Negative) U Methamphetamines Scrn Negative (Negative) U Benzodiazepines Scrn Negative (Negative) Urine Cocaine Screen Negative (Negative) U Marijuana (THC) Screen POSITIVE A (Negative) Ur Drug Screen Comment See Note Ethyl Alcohol < 0.01 L (0.01-0.03) % SARS-CoV-2 (PCR) Negative SARS-CoV-2 (Negative) Influenza Type A (PCR) Negative PCR FLU A (Negative) Influenza Type B (PCR) Negative PCR FLU B (Negative) RSV (PCR) Negative PCR RSV (Negative) Lab Acknowledgement 02/09/23 02/09/23 02/09/23 Range/Units 22:18 22:50 Unknown WBC (4.50-11.00) K/uL RBC (4.00-5.20) m/uL Hgb (12.0-16.0) gm/dL Hct (33.0-51.0) % MCV (80-100) fL MCH (26-34) pg MCHC (32-36) gm/dL RDW Coeff of Aruna (11.5-15.5) % Plt Count (140-440) K/uL Neut % (Auto) (42.0-72.0) % Lymph % (Auto) (20-44) % Crockett % (Auto) (0.0-11.0) % Eos % (Auto) (0.0-7.0) % Baso % (Auto) (0.0-3.0) % Neut # (Auto) (1.7-7.0) K/uL Lymph # (Auto) (0.90-2.90) K/uL Crockett # (Auto) (0.00-0.90) K/UL Eos # (Auto) (0.00-0.50) K/uL Baso # (Auto) (0.00-0.30) K/uL Abs Immat Gran (auto) (0.00-0.30) K/uL Imm/Tot Granulo (auto) % Sodium (135-149) mmol/L Potassium (3.6-5.1) mmol/L Chloride (96-114) mmol/L Carbon Dioxide (20-32) mmol/L Anion Gap (7-15) mEq/L BUN (5-24) mg/dL Creatinine (0.5-1.5) mg/dL Estimated Creat Clear Estimated GFR ml/min Glucose (60-115) mg/dL Lactate 0.8 (0.5-1.9) mmol/L Calcium (8.4-10.6) mg/dL Ionized Calcium Yg 1.02 L (1.11-1.30) mmol/L Magnesium (1.5-2.6) mg/dL Total Bilirubin (0.1-1.5) mg/dL AST (12-35) U/L ALT (4-35) U/L Alkaline Phosphatase (40-150) U/L Total Protein (6.0-8.3) g/dL Albumin (3.3-5.0) g/dL Lipase (23-300) U/L 25-OH Vitamin D Total 29 L (30-80) ng/mL PTH Intact (15-65) pg/mL Urine Color (Yellow) Urine Appearance (Clear) Urine pH (5.0-8.5) Ur Specific Stanley (1.000-1.030) Urine Protein (Negative) Urine Glucose (UA) (Negative) Urine Ketones (Negative) Urine Blood (Negative) Urine Nitrite (Negative) Urine Bilirubin (Negative) Urine Urobilinogen (0.2-1.0) Ur Leukocyte Esterase (Negative) Urine RBC (0-2) Urine WBC (0-5) Ur Squamous Epith Cells (None-Few) Urine Bacteria (None) Salicylates (1.0-10) mg/dL Urine Opiates Screen (Negative) Ur Oxycodone Screen (Negative) Urine Methadone Screen (Negative) Ur Propoxyphene Screen (Negative) Acetaminophen (10.0-30.0) ug/mL Ur Barbiturates Screen (Negative) U Tricyclic Antidepress (Negative) Ur Phencyclidine Scrn (Negative) Ur Amphetamines Screen (Negative) U Methamphetamines Scrn (Negative) U Benzodiazepines Scrn (Negative) Urine Cocaine Screen (Negative) U Marijuana (THC) Screen (Negative) Ur Drug Screen Comment Ethyl Alcohol (0.01-0.03) % SARS-CoV-2 (PCR) (Negative) Influenza Type A (PCR) (Negative) Influenza Type B (PCR) (Negative) RSV (PCR) (Negative) Lab Acknowledgement Test Added 02/10/23 Range/Units 06:48 WBC (4.50-11.00) K/uL RBC (4.00-5.20) m/uL Hgb (12.0-16.0) gm/dL Hct (33.0-51.0) % MCV (80-100) fL MCH (26-34) pg MCHC (32-36) gm/dL RDW Coeff of Aruna (11.5-15.5) % Plt Count (140-440) K/uL Neut % (Auto) (42.0-72.0) % Lymph % (Auto) (20-44) % Crockett % (Auto) (0.0-11.0) % Eos % (Auto) (0.0-7.0) % Baso % (Auto) (0.0-3.0) % Neut # (Auto) (1.7-7.0) K/uL Lymph # (Auto) (0.90-2.90) K/uL Crockett # (Auto) (0.00-0.90) K/UL Eos # (Auto) (0.00-0.50) K/uL Baso # (Auto) (0.00-0.30) K/uL Abs Immat Gran (auto) (0.00-0.30) K/uL Imm/Tot Granulo (auto) % Sodium 127 L (135-149) mmol/L Potassium 4.2 (3.6-5.1) mmol/L Chloride 96 (96-114) mmol/L Carbon Dioxide 26 (20-32) mmol/L Anion Gap 5 L (7-15) mEq/L BUN 4 L (5-24) mg/dL Creatinine 0.7 (0.5-1.5) mg/dL Estimated Creat Clear 101.30 Estimated GFR 108 ml/min Glucose 100 (60-115) mg/dL Lactate (0.5-1.9) mmol/L Calcium 7.5 L (8.4-10.6) mg/dL Ionized Calcium Yg (1.11-1.30) mmol/L Magnesium 1.8 (1.5-2.6) mg/dL Total Bilirubin (0.1-1.5) mg/dL AST (12-35) U/L ALT (4-35) U/L Alkaline Phosphatase (40-150) U/L Total Protein (6.0-8.3) g/dL Albumin (3.3-5.0) g/dL Lipase (23-300) U/L 25-OH Vitamin D Total (30-80) ng/mL PTH Intact (15-65) pg/mL Urine Color (Yellow) Urine Appearance (Clear) Urine pH (5.0-8.5) Ur Specific Stanley (1.000-1.030) Urine Protein (Negative) Urine Glucose (UA) (Negative) Urine Ketones (Negative) Urine Blood (Negative) Urine Nitrite (Negative) Urine Bilirubin (Negative) Urine Urobilinogen (0.2-1.0) Ur Leukocyte Esterase (Negative) Urine RBC (0-2) Urine WBC (0-5) Ur Squamous Epith Cells (None-Few) Urine Bacteria (None) Salicylates (1.0-10) mg/dL Urine Opiates Screen (Negative) Ur Oxycodone Screen (Negative) Urine Methadone Screen (Negative) Ur Propoxyphene Screen (Negative) Acetaminophen (10.0-30.0) ug/mL Ur Barbiturates Screen (Negative) U Tricyclic Antidepress (Negative) Ur Phencyclidine Scrn (Negative) Ur Amphetamines Screen (Negative) U Methamphetamines Scrn (Negative) U Benzodiazepines Scrn (Negative) Urine Cocaine Screen (Negative) U Marijuana (THC) Screen (Negative) Ur Drug Screen Comment Ethyl Alcohol (0.01-0.03) % SARS-CoV-2 (PCR) (Negative) Influenza Type A (PCR) (Negative) Influenza Type B (PCR) (Negative) RSV (PCR) (Negative) Lab Acknowledgement <Joanne Tineo MD - Last Filed: 02/10/23 10:58> Imaging Data CT scan - head: Attestation: I have reviewed the pertinent imaging results. <Valorie Corral MD - Last Filed: 02/10/23 01:11> My impression: I do not note any acute findings. <Valorie Corral MD - Last Filed: 02/10/23 01:11> Radiologist's impression: Brain: No evidence of mass, acute infarction or hemorrhage is seen. No mass-effect or midline shift is seen. The brain parenchyma is otherwise normal in appearance with preservation of the akers-white matter junction. Calvarium: The visualized paranasal sinuses are well aerated. The mastoid air cells are clear. The visualized orbits are grossly unremarkable. The calvarium is unremarkable in appearance with no fractures identified. IMPRESSION: 1. No evidence of acute infarction, intracranial hemorrhage, or mass-effect seen. <Valorie Corral MD - Last Filed: 02/10/23 01:11> Head and neck angio: Attestation: I have reviewed the pertinent imaging results. <Valorie Corral MD - Last Filed: 02/10/23 01:11> Radiologist's impression: 1. The Wallace of [place] is unremarkable with no significant stenosi s, occlusion, or aneurysm identified. 2. The neck vessels shows no evidence of dissection, significant stenosis in the common or internal carotid arteries, vertebral arteries, or visualized great vessels of the chest <Valorie Corral MD - Last Filed: 02/10/23 01:11> MRI - head: Attestation: I have reviewed the pertinent imaging results. <Joanne Tineo MD - Last Filed: 02/10/23 10:58> Radiologist's impression: Indication: Dysconjugate gaze with left medial eye deviation Technique: Noncontrast sagittal T1, axial FLAIR, T2, diffusion weighted sequences are provided. Comparison: MR head with and without IV contrast, January 22, 2023. Findings: Slight image quality degradation due to motion artifact on multiple sequences. The ventricles, sulci and gyri are normal size, shape and contour for age. The midline structures are centrally located with no evidence of shift. There are no suspicious intra or extra-axial fluid collections. No region of restricted diffusion. Expected flow voids in the cavernous carotids and basilar artery. Impression: Slight image quality degradation due to motion artifact. Given these limitations there is no evidence of acute intracranial abnormality on this noncontrast MRI of the head. <Joanne Tineo MD - Last Filed: 02/10/23 10:58> ECG Data Attestation: I personally reviewed and interpreted this ECG as follows: <Valorie Corral MD - Last Filed: 02/10/23 01:11> Interpretation: EKG by my read shows sinus bradycardia at a rate of 59. There are no acute ST or T-wave changes. QT interval is normal at 471 corrected. <Valorie Corral MD - Last Filed: 02/10/23 01:11> Discharge Plan Discharge Clinical Impression: Abnormal neurological exam, Hallucination, Vitamin D deficiency, Acute hypokalemia, Hypomagnesemia, Hypocalcemia UTI (urinary tract infection) Qualifiers: Urinary tract infection type: site unspecified Hematuria presence: without hematuria Qualified Code(s): N39.0 - Urinary tract infection, site not specified Migraine Qualifiers: Migraine type: other Status migrainosus presence: without status migrainosus Intractability: not intractable Qualified Code(s): G43.809 - Other migraine, not intractable, without status migrainosus <Valorie Corral MD - Last Filed: 02/10/23 01:11> Patient Disposition: Home, Self-Care <Valorie Corral MD - Last Filed: 02/10/23 01:11> Condition: Stable <Valorie Corral MD - Last Filed: 02/10/23 01:11> Additional Instructions: You should follow-up with primary care provider this week to discuss your electrolyte abnormalities. You should follow-up with your psychiatrist to let them know about your hallucinations. Follow-up with psychiatrist and therapist as scheduled <Valorie Corral MD - Last Filed: 02/10/23 01:11> Prescriptions: No Action baclofen 20 mg tablet 20 mg PO BID cyclobenzaprine 10 mg tablet 10 mg PO TID PRN dextroamphetamine-amphetamine [Adderall] 20 mg tablet 40 mg PO BID meloxicam 15 mg tablet 15 mg PO DAILY pramipexole 0.125 mg tablet 0.25 - 0.375 mg PO HS mirtazapine 15 mg tablet 15 mg PO QPM quetiapine 25 mg Tablet 25 mg PO HS Qty: 14 0RF clonazepam 1 mg tablet 2 mg PO BID PRN norethindrone-e.estradiol-iron [Junel FE 04/04 ()] 1 mg-20 mcg (21)/75 mg (7) tablet 1 tab PO DAILY clonidine HCl 0.2 mg tablet 0.4 mg PO BID amitriptyline 100 mg tablet 100 mg PO HS pantoprazole [Protonix] 20 mg tablet,delayed release (DR/EC) 20 mg PO DAILY Qty: 20 2RF <Valorie Corral MD - Last Filed: 02/10/23 01:11> Follow Up/Referrals: MARLENA PITTMAN DO [Primary Care Provider] - <Valorie Corral MD - Last Filed: 02/10/23 01:11> Stand Alone Forms: [employer] Info Instructions <Valorie Corral MD - Last Filed: 02/10/23 01:11>
[2023-02-09 20:39] LABS: Appearance Urine Clear (Clear); Bilirubin Urine Negative (Negative); Blood Urine 2+ (Negative); Color Urine Yellow (Yellow); Glucose Urine Negative (Negative); Ketones Urine Negative (Negative); Leukocyte Esterase Urine Negative (Negative); Nitrite Urine Positive (Negative); Protein Urine Negative (Negative); Specific Gravity Urine >= 1.030 (1.000-1.030); Urobilinogen Urine 0.2 (0.2-1.0)
[2023-02-09 20:47] LABS: Bacteria Urine Many; RBC Urine 0-2 (0-2); Squamous Epithelial Cell Urine Few (None-Few); WBC Urine 0-2 (0-5)
[2023-02-09 20:52] LABS: Amphetamine Screen Urine Negative (Negative); Barbiturate Screen Urine Negative (Negative); Benzodiazepines Screen Urine Negative (Negative); Cannabinoid Screen Urine POSITIVE (Negative); Cocaine Screen Urine Negative (Negative); Methadone Screen Urine Negative (Negative); Methamphetamines Screen Urine Negative (Negative); Opiate Screen Urine Negative (Negative); Oxycodone Screen Urine Negative (Negative); Phencyclidine Screen Urine Negative (Negative); Tricyclic Antidepressant Urine POSITIVE (Negative)
--- NOTE | 2023-02-09 20:52 | CRLHL7_ITS ---
For Patients: As a result of the Century Cures Act, medical imaging exams and procedure reports are released immediately into your electronic medical record. You may view this report before your referring provider. If you have questions, please contact your health care provider. INDICATION: Headache with dysconjugate gaze TECHNIQUE: CT Head without i.v. contrast. Coronal and sagittal reformats were obtained. COMPARISON: None FINDINGS: CSF space: The ventricles are normal for age. Brain: No evidence of mass, acute infarction or hemorrhage is seen. No mass-effect or midline shift is seen. The brain parenchyma is otherwise normal in appearance with preservation of the akers-white matter junction. Calvarium: The visualized paranasal sinuses are well aerated. The mastoid air cells are clear. The visualized orbits are grossly unremarkable. The calvarium is unremarkable in appearance with no fractures identified. IMPRESSION: 1. No evidence of acute infarction, intracranial hemorrhage, or mass-effect seen. Please note that all CT scans at this facility use dose modulation, iterative reconstruction, and/or weight-based dosing when appropriate to reduce radiation dose to as low as reasonably achievable. Dictated by: Reid Newsome MD @ 02/09/2023 22:58:26 (Electronically Signed)
[2023-02-09] MEDS: 0.9 % SODIUM CHLORIDE 1000 ml 1,000 ML IV (21:04)
[2023-02-09 21:10] LABS: Basophils Percent Auto 0.4 % (0.0-3.0); Eosinophils Percent Auto 1.8 % (0.0-7.0); Hemoglobin* 11.5 gm/dL (12.0-16.0); Immature Granulocytes Pct Auto 0.1 %; Lymphocytes Percent Auto 38.6 % (20-44); Mean Corpuscular HGB Conc 33 gm/dL (32-36); Mean Corpuscular Hemoglobin 30 pg (26-34); Mean Corpuscular Volume 93 fL (80-100); Monocytes Percent Auto 4.9 % (0.0-11.0); Neutrophils Percent Auto 54.2 % (42.0-72.0); Platelet Count* 216 K/uL (140-440); RDW Coefficient of Variation % 12.2 % (11.5-15.5); Red Blood Count 3.78 m/uL (4.00-5.20); White Blood Count* 11.32 K/uL (4.50-11.00)
[2023-02-09 21:25] LABS: Slide Review Reflex No
[2023-02-09 21:26] LABS: Albumin* 3.4 g/dL (3.3-5.0); Chloride* 96 mmol/L (96-114)
[2023-02-09 21:27] LABS: Sodium* 128 mmol/L (135-149)
[2023-02-09 21:29] LABS: Alkaline Phosphatase* 71 U/L (40-150); Anion Gap 10 mEq/L (7-15); Aspartate Amino Transferase* 19 U/L (12-35); Bilirubin Total* 0.2 mg/dL (0.1-1.5); Blood Urea Nitrogen* 7 mg/dL (5-24); Carbon Dioxide* 22 mmol/L (20-32); Creatinine* 0.7 mg/dL (0.5-1.5); Estimated Glomerular Filt Rate 108 ml/min; Glucose* 89 mg/dL (60-115); Total Protein* 6.2 g/dL (6.0-8.3)
[2023-02-09 21:30] LABS: Alanine Aminotransferase* 15 U/L (4-35); Calcium* 7.4 mg/dL (8.4-10.6)
[2023-02-09 21:33] LABS: Acetaminophen* < 10.0 ug/mL (10.0-30.0); Ethanol* < 0.01 % (0.01-0.03); Potassium* 2.8 mmol/L (3.6-5.1); Salicylate* < 1.0 mg/dL (1.0-10)
[2023-02-09 21:45] LABS: PCR FLU A Negative PCR FLU A (Negative); PCR FLU B Negative PCR FLU B (Negative); PCR RSV Negative PCR RSV (Negative)
[2023-02-09] MEDS: KETOROLAC 15 MG/ML inj IVP (21:47)
[2023-02-09] MEDS: POTASSIUM BICARB 25 MEQ EFFERVESCENT TAB 50 MEQ PO (22:08)
--- NOTE | 2023-02-09 22:34 | CRLHL7_ITS ---
For Patients: As a result of the Century Cures Act, medical imaging exams and procedure reports are released immediately into your electronic medical record. You may view this report before your referring provider. If you have questions, please contact your health care provider. INDICATION: Dysconjugate gaze, hallucinations. TECHNIQUE: CTA head with contrast bolus tracking, 3D angiographic rendering using maximum intensity projection (MIP) and images permanently archived. FINDINGS: There is normal opacification of the intracranial vasculature. There is no large vessel occlusion. No aneurysm is identified. IMPRESSION: Unremarkable head CTA. No large vessel occlusion. Please note that all CT scans at this facility use dose modulation, iterative reconstruction, and/or weight-based dosing when appropriate to reduce radiation dose to as low as reasonably achievable. Dictated by Alexandr Huynh MD @ 02/10/2023 7:01:50 AM (Electronically Signed)
--- NOTE | 2023-02-09 22:34 | CRLHL7_ITS ---
For Patients: As a result of the Century Cures Act, medical imaging exams and procedure reports are released immediately into your electronic medical record. You may view this report before your referring provider. If you have questions, please contact your health care provider. INDICATION: Dysconjugate gaze, hallucinations. TECHNIQUE: CTA neck with contrast bolus tracking, 3D angiographic rendering using maximum intensity projection (MIP) and images permanently archived. FINDINGS: There is no significant carotid artery stenosis or dissection. There is no significant vertebral artery stenosis or dissection. The soft tissues of the neck are within normal limits. The cervical spine is in normal alignment. IMPRESSION: Unremarkable neck CTA. No significant carotid or vertebral artery stenosis or dissection. Please note that all CT scans at this facility use dose modulation, iterative reconstruction, and/or weight-based dosing when appropriate to reduce radiation dose to as low as reasonably achievable. Dictated by Alexandr Huynh MD @ 02/10/2023 7:03:42 AM (Electronically Signed)
[2023-02-09 22:45] LABS: SARS PCR* Negative SARS-CoV-2 (Negative)
[2023-02-09 22:54] LABS: Ionized Calcium* 1.02 mmol/L (1.11-1.30); Lactate* 0.8 mmol/L (0.5-1.9)
[2023-02-09 23:06] LABS: Lipase* 68 U/L (23-300)
[2023-02-09 23:07] LABS: Magnesium* 1.4 mg/dL (1.5-2.6)
[2023-02-09 23:18] LABS: Vitamin D 25 Hydroxy* 29 ng/mL (30-80)
[2023-02-09 23:19] LABS: PTH Intact* 85 pg/mL (15-65)
[2023-02-09] MEDS: MAGNESIUM IV 2 GM/50 ML PIGGYBACK IVPB (23:27)
[2023-02-09] MEDS: ACETAMINOPHEN 325 MG TABLET 650 MG PO (23:41)
[2023-02-09 23:54] VITALS: BP 168/98; PULSE 70; RESP 16; TEMP 36.6; O2SAT 98
[2023-02-10] MEDS: cefTRIAXone 1 GM in 0.9 % SODIUM CHLORIDE Mini-bag 100 ML IVPB (01:21)
[2023-02-10 01:35] VITALS: BP 110/62; PULSE 61; RESP 16; O2SAT 98
[2023-02-10] MEDS: GUAIF/DM 200-20 MG/20 ML 118 ML LIQUID 10 ML PO ×2 (01:36→09:38)
[2023-02-10 04:33] VITALS: RESP 16
--- NOTE | 2023-02-10 06:00 | CRLHL7_ITS ---
For Patients: As a result of the Century Cures Act, medical imaging exams and procedure reports are released immediately into your electronic medical record. You may view this report before your referring provider. If you have questions, please contact your health care provider. Indication: Dysconjugate gaze with left medial eye deviation Technique: Noncontrast sagittal T1, axial FLAIR, T2, diffusion weighted sequences are provided. Comparison: MR head with and without IV contrast, January 22, 2023. Findings: Slight image quality degradation due to motion artifact on multiple sequences. The ventricles, sulci and gyri are normal size, shape and contour for age. The midline structures are centrally located with no evidence of shift. There are no suspicious intra or extra-axial fluid collections. No region of restricted diffusion. Expected flow voids in the cavernous carotids and basilar artery. Impression: Slight image quality degradation due to motion artifact. Given these limitations there is no evidence of acute intracranial abnormality on this noncontrast MRI of the head. Dictated by Arya Mcduffie MD @ 02/10/2023 10:12:14 AM (Electronically Signed)
[2023-02-10] MEDS: POTASSIUM BICARB 25 MEQ EFFERVESCENT TAB 50 MEQ PO (06:14)
[2023-02-10 06:20] VITALS: BP 148/74; PULSE 86; RESP 16; O2SAT 98
[2023-02-10 07:11] LABS: Chloride* 96 mmol/L (96-114); Potassium* 4.2 mmol/L (3.6-5.1); Sodium* 127 mmol/L (135-149)
[2023-02-10 07:14] LABS: Anion Gap 5 mEq/L (7-15); Carbon Dioxide* 26 mmol/L (20-32); Creatinine* 0.7 mg/dL (0.5-1.5); Estimated Glomerular Filt Rate 108 ml/min
[2023-02-10 07:15] LABS: Blood Urea Nitrogen* 4 mg/dL (5-24); Calcium* 7.5 mg/dL (8.4-10.6); Glucose* 100 mg/dL (60-115); Magnesium* 1.8 mg/dL (1.5-2.6)
--- NOTE | 2023-02-10 07:41 | ED.NURSE ---
patient is upset and is in pain right shoulder. Fibromyalgia is acting up and pain is out of control plus NGUYEN. wants to get Ketamine for the nguyen once before would like that again since it worked very well.
[2023-02-10] MEDS: CYCLOBENZAPRINE HCL 10 MG TABLET PO (08:00)
[2023-02-10] MEDS: ACETAMINOPHEN 500 MG TABLET 1000 MG PO (08:00)
--- NOTE | 2023-02-10 08:15 | ED.NURSE ---
patient know wanting some other medications for nausea and Klonopin which patient thinks dose is [address] Tineo of this and will look into ordering the medication.
--- NOTE | 2023-02-10 08:17 | ED.NURSE ---
given report to Urmila who will resume care of patient.
[2023-02-10] MEDS: clonazePAM 0.5 MG TABLET 1 MG PO (08:53)
[2023-02-10] MEDS: BACLOFEN 10 MG TABLET 20 MG PO (08:55)
[2023-02-10 08:58] VITALS: BP 137/95; PULSE 75; RESP 20; TEMP 37.1; O2SAT 98
== END 2023-02-10 11:34 | disposition home or self-care (01) ==
PROVIDERS: Family Medicine; Emergency Provider Family Medicine; PCP Student in an Organized Health Care Education/Training Program
DX: N39.0 Urinary tract infection, site not specified (principal); G43.809 Other migraine, not intractable, without status migrainosus; E87.6 Hypokalemia; E83.42 Hypomagnesemia
CPT/HCPCS: 36415; 70450; 70496; 70498; 70551; 80048; 80053; 80143; 80179; 80306; 81003; 81015; 82077; 82306; 82330; 83605; 83690; 83735; 83970; 85025; 87086; 87186; 87631; 93005; 96365; 96366; 96375; 99285; A9270; J0696; J1885; J3475; J7030; Q9967

== ENCOUNTER 2023-05-21 14:03 | Outpatient (CLI) | payer MEDICARE, OTHER, SELFPAY | END 2023-05-21 14:04 | disposition home or self-care (01) | PROVIDERS: PCP Student in an Organized Health Care Education/Training Program; Visit Provider Emergency Medicine | DX: R41.82 Altered mental status, unspecified (principal); R47.81 Slurred speech | CPT/HCPCS: A0425; A0427 ==

== ENCOUNTER 2024-04-28 11:35 | Emergency (ER) | payer MEDICARE, OTHER, SELFPAY ==
[2024-04-28] VITALS (12 sets, daily range): BP systolic 117–154; BP diastolic 78–102; PULSE 79–102; RESP 18; TEMP 37; O2SAT 96–100; BMI 38.0
[2024-04-28] MEDS: ONDANSETRON 2 MG/ML inj 4 MG IVP (13:39)
[2024-04-28] MEDS: 0.9 % SODIUM CHLORIDE 500 ML 500 ML IV (13:40)
[2024-04-28] MEDS: KETAMINE 50 MG/0.5 ML 20 MG in 0.9 % SODIUM CHLORIDE 100 ml 100 ML 200.4 MG IVPB (13:52)
[2024-04-28 14:18] LABS: PCR FLU A Negative PCR FLU A (Negative); PCR FLU B Negative PCR FLU B (Negative); PCR RSV Negative PCR RSV (Negative); SARS PCR* Negative SARS-CoV-2 (Negative)
[2024-04-28] MEDS: diphenhydrAMINE 50 MG/ML inj 25 MG IVP (14:34)
[2024-04-28] MEDS: KETOROLAC 15 MG/ML inj IVP (14:34)
--- OUTSIDE RECORDS SUMMARY | 2024-04-28 14:35 | XMS_ITS | Clinical Summary ---
Author Organization [place] Address [address] [place] [address]. [place] [address] Care Team Providers Care [employer] Registrar Name Role Phone Toni Gutierrez DO Primary Care Provider [phone] Allergies Active Allergy Reactions Criticality Noted Date Comments Lactose 05/19/2017 Morphine Sulfate 10/22/2001 Medications Omeprazole Magnesium (PRILOSEC OTC PO)Indications:Scr een for STD (sexually transmitted disease) Active methadone (METHADOSE) 40 MG disintegrating tabletIndications: Pt states she takes 100 mg daily Take 40 mg by mouth Active tolterodine (DETROL) 2 MG tablet Take by mouth 2 times daily Active amphetamine-dextro amphetamine (ADDERALL XR) 20 MG per 24 hr capsule Take 20 mg by mouth Active QUEtiapine Fumarate (SEROQUEL PO) Active SUMAtriptan Succinate (IMITREX PO)Indications:Cer vical high risk HPV (human papillomavirus) test positive Active lurasidone (LATUDA) 20 MG TABS tablet Take 20 mg by mouth Active VITAMIN D, CHOLECALCIFEROL, PO Take by mouth daily Active Cyanocobalamin (VITAMIN B-12 PO) Ac tive triamcinolone (KENALOG) 0.5 % creamIndications:A cute vulvitis Apply topically 2 times daily Apply sparingly to affected area three times daily. 30 g 05/06/19 18 Active Additional Information Patient not taking.Reported on 01/27/2018 ibuprofen (ADVIL/MOTRIN) 600 MG tablet Take 1 tablet (600 mg) by mouth every 8 hours as needed for moderate pain 30 tablet 05/30/19 18 Active Additional Information Patient not taking.Reported on 01/27/2018 Calcium-Vitamin D 600-200 MG-UNIT TABS Take 1 tablet by mouth Active cyclobenzaprine (FLEXERIL) 10 MG tablet Take 10 mg by mouth 10/23/19 18 Active guanFACINE (TENEX) 1 MG tablet Take 1 tablet by mouth in the morning and 2 tablets at bedtime. Active methocarbamol (ROBAXIN) 750 MG tablet Take 750-1,500 mg by mouth 11/15/19 18 Active valACYclovir (VALTREX) 500 MG tabletIndications: HSV infection Take 1 tablet (500 mg) by mouth 2 times daily 10 tablet 3 01/28/20 18 Active meclizine (ANTIVERT) 25 MG tablet Take 1 tablet (25 mg) by mouth every 6 hours as needed for dizziness 30 tablet 1 01/14/20 19 Active amitriptyline (ELAVIL) 10 MG tablet TAKE 3 TABLETS BY MOUTH EVERY EVENING 04/13/19 21 Active clonazePAM (KLONOPIN) 1 MG tablet TAKE 1 TABLET BY MOUTH FOUR TIMES DAILY 07/17/19 22 Active DULoxetine (CYMBALTA) 60 MG capsule TAKE 2 CAPSULES BY MOUTH EVERY DAY 07/16/19 22 Active meloxicam (MOBIC) 15 MG tablet 07/31/19 21 Active pramipexole (MIRAPEX) 0.125 MG tablet Take 1 tablet by mouth At Bedtime 04/23/19 21 Active rizatriptan (MAXALT) 10 MG tablet Take 10 mg by mouth 04/23/19 21 Active traZODone (DESYREL) 50 MG tablet Take 50 mg by mouth 11/01/19 21 Active albuterol (PROAIR HFA/PROVENTIL HFA/VENTOLIN HFA) 108 (90 Base) MCG/ACT inhaler Inhale 2 puffs into the lungs every 6 hours as needed for shortness of breath / dyspnea or wheezing 18 g 1 09/04/19 22 Active JUNEL FE 04/04 1-20 MG-MCG tabletIndications: Perimenopausal vasomotor symptoms TAKE 1 TABLET BY MOUTH DAILY 84 tablet 05/17/19 23 Active Active Problems Problem Noted Date Diagnosed Date Narcotic abuse 05/30/2015 Cervical high risk HPV (human papillomavirus) te st positive 05/21/2012 Overview (08/05/2021): 05/18/03 ASCUS/+ HPV 16 '08, '12 NIL paps 05/21/12 NIL/+ HR HPV. Plan: cotest in 1 year 07/11/14 NIL/+ HR HPV. 05/30/15 NIL/+ HR HPV 18 and other. Plan: colpo 09/10/15 Colpo. ECC-normal 02/09/17 Repeat Colpo- Bx-normal. NIL/Neg HPV. Plan: cotest in 1 year 03/03/18 Patient is lost to pap tracking follow-up. 07/30/21 NIL pap, neg HR HPV. Plan Low back pain 08/29/2010 Cervicalgia 08/26/2010 CARDIOVASCULAR SCREENING; LDL GOAL LESS THAN 160 01/13/2010 Irritable bowel syndrome 10/25/2006 Other and unspecified noninf ectious gastroenteritis and colitis(558.9) 10/25/2006 Myalgia and myositis 02/16/2003 Overview (12/14/2014): Problem list name updated by automated process. 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 Provider to review Headache Overview (12/14/2014): myofascial Problem list name updated by automated process. Provider to review Generalized anxiety disorder Esophageal reflux Alcohol abuse, continuous Major depression Resolved Problems Problem Noted Date Diagnosed Date Resolved Date Cervical pain 08/26/2010 08/26/2010 Immunizations Name Administration Dates Next Due Influenza (IIV3) PF 02/16/2003,04/02/2001 Pneumococcal 23 valent 04/23/2018 TD,PF 7+ (Tenivac) 01/18/2006,03/16/2004 TDAP (Adacel,Boostrix) 10/21/2017 Family History Medical History Relation Comments Cancer Father Bladder Ca, pros tatectomy 05/2005 Cancer Maternal Grandfather Arthritis Maternal Grandmother Cancer Maternal Grandmother Hypertension Maternal Grandmother Arthritis Mother Musculoskeletal Disorder Mother fibromy algia Psychotic Disorder Mother bipolar Hyperlipidemia Other 1 Osteoporosis Other 2 Cancer Paternal Grandmother Relation Status Comments Father Maternal Grandfather Maternal Grandmother Mother Other 1 Other 2 Paternal Grandmother Social History Tobacco Use Types Packs/Day Years Used Date Smoking Tobacco: Every Day Cigarettes 0.3 10 Smokeless Tobacco: Current Tobacco Cessation:Ready to Q uit: No; Counseling Given: No Alcohol Use Standard Drinks/Week Comments No 0 (1 standard drink = 0.6 oz pur e alcohol) PHQ-2 Answer Date Recorded PHQ-2 Score 3 07/30/2021 Adolescent Education Answer Date Record ed Getting School Help Needed Not on file 12/28 Comments No Sex and Gender Information Value Date Recorded Sex Assigned at Not on file Legal Sex Female 3:26 AM [employer] C[employer] Gender Identity Not on file Sexual Orientation Not on file Last Filed Vital Signs Vital Sign Reading Time Taken Comments Blood Pressure 102/71 05/21/2023 8:15 PM [facility]ATE C[facility]TER Pulse 53 05/21/2023 8:15 PM [facility]ATE C[facility] Temperature 36.3 C (97.3 F) 05/21/2023 3:32 PM [facility] C[facility]TER Respiratory Rate 11 05/21/2023 8:15 PM [facility]ATE C[facility]TER Oxygen Saturation 98% 05/21/2023 8:15 PM [facility]ATE C[facility] Inhaled Oxygen Concentration - - Weight 103.4 kg (228 lb) 09/03/2021 9:16 PM CDT Height 172.7 cm (5' 8) 09/03/2021 9:16 PM CDT Body Mass Index 34.67 09/03/2021 9:16 PM CDT Plan of Treatment Health Maintenance Due Date Last Done Comments ADVANCE CARE PLANNING 1976 ANNUAL REVIEW OF HM ORDERS [address] CT COLONOGRAPHY 1976 DEPRESSION ACTION PLAN 1976 FIT 1976 FLEX SIG 1976 MAMMO SCREENING 1976 sDNA (Cologuard) 1976 HEPATITIS B IMMUNIZATION (1 of 3 - 19+ 3-dose series) 1995 COLONOSCOPY 07/08/2014 07/08/2004 COLORECTAL CANCER SCREENING 07/08/2014 LIPID 2016 10/22/2006 Pneumococcal Vaccine: Pediatrics (0 to 5 Years) and At-Risk Patients (6 to 49 Years) (2 of 2 - PCV) 04/23/2019 04/23/2018 HPV IMMUNIZATION (2 - 3-dose SCDM series) 10/23/2021 09/25/2021 PHQ-9 01/30/2022 07/30/2021 MEDICARE ANNUAL WELLNESS VISIT 03/21/2023 03/21/2022, 07/30/2021, 05/01/2016, Additional history exists COVID-19 Vaccine ( season) 2023 INFLUENZA VACCINE (#1) 2023 9, 04/02/2017, 11/24/2013, Additional history exists HPV TEST 07/30/2024 07/30/2021, 01/15, 05/30/2015, Additional history exists PAP 07/30/2024 07/30/2021, 01/15, 05/30/2015, Additional history exists ZOSTER IMMUNIZATION (1 of 2) 2026 GLUCOSE 05/20/2026 05/21/2023, 08/15, 05/25/2021, Additional history exists DTAP/TDAP/TD IMMUNIZATION (2 - Td or Tdap) 10/22/2027 10/21/2017, 01/18/2006, 01/18/2006, Additional history exists HEPATITIS C SCREENING Completed 03/21/2022, 016 HIV SCREENING Completed 03/21/2022, 05/14, 05/18/2003 MENINGITIS IMMUNIZATION Aged Out No l onger eligible based on patient's age to complete this topic Procedures Procedure Name Priority Date/Time Associated Diagnosis Comments BASIC METABOLIC PANEL STAT 05/21/2023 3:42 PM [facility] GYNECOLOGIC CYTOLOGY Routine 07/30/2021 9:40 AM CDT Screening for cervical cancer HPV HIGH RISK TYPES DNA CERVICAL Routine 07/30/2021 9:40 AM CDT Screening for cervical cancer HIV ANTIGEN ANTIBODY COMBO Routine 05/30/2015 11:58 AM CDT Screen for STD (sexually transmitted disease) HEPATITIS C ANTIBODY Routine 05/30/2015 11:58 AM CDT Screen for STD (sexually transmitted disease) CL AFF A.M.A. LIPID PANEL Routine 10/22/2006 9:25 AM CDT Routine Medical Exam COLONOSCOPY Routine 07/08/2004 11:15 AM CDT from Last 3 Months or Most Recently Relevant to Health Maintenance Results * (ABNORMAL) Basic metabolic panel (BMP) (05/21/2023 3:42 PM [facility]TER) Sodium 135 135 - 145 mmol/L 05/21/2023 4:25 PM [facility] Comment:Reference intervals for this test were updated on 12/09/2022 to more accurately reflect our healthy population. There may be differences in the flagging of prior results with similar values performed with this method. Interpretation of those prior results can be made in the context of the updated reference intervals. Potassium 3.9 3.4 - 5.3 mmol/L 05/21/2023 4:25 PM [facility] Chloride 98 98 - 107 mmol/L 05/21/2023 4:25 PM [facility] Carbon Dioxide (CO2) 28 22 - 29 mmol/L 05/21/2023 4:25 PM [facility] Anion Gap 9 7 - 15 mmol/L 05/21/2023 4:25 PM [facility] Urea Nitrogen 14.5 6.0 - 20.0 mg/dL 05/21/2023 4:25 PM [facility] Creatinine 1.01(H) 0.51 - 0.95 mg/dL 05/21/2023 4:25 PM [facility] GFR Estimate 69 >60 mL/min/1. 73m2 05/21/2023 4:25 PM [facility] Calcium 8.9 8.6 - 10.0 mg/dL 05/21/2023 4:25 PM [facility] Glucose 99 70 - 99 mg/dL 05/21/2023 4:25 PM [facility] Blood VENOUS LINE / Unknown Venipuncture / Unknown 05/21/2023 3:42 PM [facility] C[facility] 05/21/2023 3:57 PM [facility] C[facility] us Jaime Carrillo MD LAB - BLOOD ORDERABLES Final Re sult LABORATORY [facility] [address] Lab (1st floor, no room number) [place] [address], [facility] [phone] * Pap screen with HPV - recommended age 30 - 65 years (07/30/2021 9:40 AM CDT) Interpretation Negative for Intraepithelial Lesion or Malignancy (NILM) 08/02/2021 1:43 PM CDT [facility] Comment Papanicolaou Test Limitations: Cervical cytology is a screening test with limited sensitivity, and regular screening is critical for cancer prevention. Pap tests are primarily effective for the diagnosis/prevent ion of squamous cell carcinoma, not adenocarcinoma or other cancers. 08/02/2021 1:43 PM CDT [facility] Specimen Adequacy Satisfactory for evaluation, endocervical/shields sformation zone component present 08/02/2021 1:43 PM CDT [facility] Clinical Information none 08/02/2021 1:43 PM CDT [facility] Reflex Testing Yes regardless of result 08/02/2021 1:43 PM CDT [facility] Previous Abnormal? No 08/02/2021 1:43 PM CDT [facility] Performing Labs The technical component of this testing was completed at [facility] 08/02/2021 1:43 PM CDT [facility] Brushing CERVIX UTERI STRUCTURE / Unknown Non-blood Collection / Unknown 07/30/2021 9:40 AM CDT 07/30/2021 10:25 AM CDT Anisa Montejo APRN [facility] Final Result [facility] [address] [facility], [address] [place] [address], [facility] [phone] * HPV High Risk Types DNA Cervical (07/30/2021 9:40 AM CDT) Other HR HPV Negative Negative 08/05/2021 3:29 PM CDT [facility] HPV16 DNA Negative Negative 08/05/2021 3:29 PM CDT [facility] HPV18 DNA Negative Negative 08/05/2021 3:29 PM CDT [facility] FINAL DIAGNOSIS This patient's sample is negative for HPV DNA. This test was developed and its performance characteristics determined by the [facility]. It has not been cleared or approved by the FDA. The laboratory is regulated under CLIA as qualified to perform high-complexity testing. This test is used for clinical purposes. It should not be regarded as investigational or for research. METHODOLOGY: The Sean Dominik 4800 system uses automated extraction, simultaneous amplification of HPV (L1 region) and beta-globin, followed by real time detection of fluorescent labeled HPV and beta globin using specific oligonucleotide probes. The test specifically identified types HPV 16 DNA and HPV 18 DNA while concurrently detecting the rest of the high risk types (31, 33, 35, 39, 45, 51, 52, 56, 58, 59, 66 or 68). COMMENTS: This test is not intended for use as a screening device for woman under age 30 with normal cervical cytology. Results should be correlated with cytologic and histologic findings. Close clinical followup is recommended. 08/05/2021 3:29 PM CDT [facility] Brushing CERVIX UTERI STRUCTURE / Unknown Non-blood Collection / Unknown 07/30/2021 9:40 AM CDT 08/05/2021 7:28 AM CDT us Anisa Montejo APRN [facility] - BLOOD ORDERABLE S Final Result [facility] [address] [facility], [address] [address], [facility] [phone] * HIV Antigen Antibody Combo (05/30/2015 11:58 AM CDT) HIV Antigen Antibody Combo Nonreactive HIV-1 p24 Ag & HIV-1/HIV-2 Ab Not Detected NR [facility] Blood specimen (specimen) 05/30/2015 11:58 AM CDT 05/30/2015 11:59 AM CDT us Olivia Reyes MD LAB - BLOOD ORDERABLES Final Re sult [facility] [address] [place] [address] * Hepatitis C antibody (05/30/2015 11:58 AM CDT) Pathologist [facility] Hepatitis C Antibody Nonreactive Assay performance characteristics have not been established for newborns, infants, and children NR [facility] Blood specimen (specimen) 05/30/2015 11:58 AM CDT 05/30/2015 11:59 AM CDT us Olivia Reyes MD LAB - BLOOD ORDERABLES Final Re sult Performing Organization Address [facility] Co de Phone Number [facility] [address] [place] [address] * A.M.A. LIPID PANEL (10/22/2006 9:25 AM CDT) [facility] Cholesterol 161 0 - 200 mg/dL [facility] Comment: LDL Cholesterol is the primary guide to therapy: LDL-cholesterol goal in high risk patients is <100 mg/dL and in very high risk patients is <70 mg/dL. The NCEP recommends further evaluation of: patients with cholesterol <200 mg/dL if additional risk factors are present, cholesterol >240 mg/dL, triglycerides >150 mg/dL, or HDL <40 mg/dL. Triglycerides 58 0 - 150 mg/dL [facility] HDL Cholesterol 68 50 - 110 mg/dL [facility] LDL Cholesterol Calculated 82 0 - 129 mg/dL [facility] Comment: LDL Cholesterol is the primary guide to therapy: LDL-cholesterol goal in high risk patients is <100 mg/dL and in very high risk patients is <70 mg/dL. VLDL-Cholesterol 12 0 - 30 mg/dL [facility] Cholesterol/HDL Ratio 2.4 0.0 - 5.0 [facility] 10/22/2006 9:25 AM CDT 10/22/2006 9:30 AM CDT us Sirisha Dominique MD LABORATORY Final Result Performing Organization Address City/[facility]/ZIP Co de Phone Number [facility] [address] [place] [address] * COLONOSCOPY (07/08/2004 11:15 AM CDT) COLONOSCOPY [facility] Patient Name: Zuleika Lockwood Gender: F Exam Date: 07/08/2004 11:15 AM Procedure: Colonoscopy Indications: Abdominal distress/pain in the left lower quadrant, Diarrhea Providers: Miguel Magaña MD Referring MD: Sirisha Dominique MD Medicines: Fentanyl 100 mcg IV, Midazolam 3 mg IV, Atropine 0.6 mg IV Complications: No immediate complications Procedure: A History and Physical has been performed, and patient medication allergies have been reviewed. The patient's tolerance of previous anesthesia has been reviewed. The risks and benefits of the procedure and the sedation options and risks were discussed with the patient. All questions were answered and informed consent was obtained. Mental Status Examination: normal. Airway Examination: normal oropharyngeal airway and neck mobility. Respiratory Examination: clear to auscultation. CV Examination: normal. ASA Grade Assessment: P1 A normal healthy patient. After reviewing the risks and benefits, the patient was deemed in satisfactory condition to undergo the procedure. The anesthesia plan was to use conscious sedation. Immediately prior to administration of medications, the patient was re-assessed for adequacy to receive sedatives. The heart rate, respiratory rate, oxygen saturations, blood pressure, adequacy of pulmonary ventilation, and response to care were monitored throughout the procedure. The physical status of the patient was re-assessed after the procedure. After obtaining informed consent, the colonoscope was passed under direct vision. Throughout the procedure, the patient's blood pressure, pulse, and oxygen saturations were monitored continuously. The Colonoscope P-55 #[id number] was introduced through the anus and advanced to the ileum. The colonoscopy was accomplished without difficulty. The patient tolerated the procedure well. The quality of the prep was excellent. Findings: The digital rectal exam was normal. A localized area of inflamed and ulcerated mucosa c/w stercoral ulcer or rectal prolapse was found in the rectum. Biopsies were taken with a cold forceps for histology. Biopsy with a cold forceps was performed for histology. The sigmoid colon, descending colon, splenic flexure, transverse colon, hepatic flexure, ascending colon, cecum, ileocecal valve and ileum were normal. The retroflexed view of the anal verge was normal and showed no anal or rectal abnormalities. The terminal ileum was normal. Impression: - Inflamed and ulcerated mucosa in the rectum. - The sigmoid colon, descending colon, splenic flexure, transverse colon, hepatic flexure, ascending colon, cecum, ileocecal valve and terminal ileum are normal. - The terminal ileum is normal. Recommend: - The patient was discharged to home (ambulatory). - High fiber diet indefinitely. - Use FiberCon at 2 tablets PO BID indefinitely. - Levsin (hyoscyamine) SL, 1-2 tabs q 4 hours - Patient should telephone endoscopist in 1 week. - Return to primary care physician PRN. Antoinette Magaña M.D Miguel Magaña MD Signed Date: 07/08/2004 11:40:32 AM I was physically present for the entire viewing portion of the exam. Note generated on 07/08/2004 11:13:44 AM RADIOLOGY RESULTS COLONOSCOPY RADIOLOG Y RESULTS 07/08/2004 11:1 5 AM CDT Miguel Magaña MD PROCEDURES Edited RADIOLOGY RESULTS from Last 3 Months or Most Recently Relevant to Health Maintenance Insurance [employer] CHOICE CARE [facility] PLUS MEDICARE MEDICA [place] management CARE [facility] PLUS MEDICARE Care Teams University Registrar Relationship Specialty Start Date End Date Toni Gutierrez DO [address] [place] [address] PCP - General 05/21/23
--- OUTSIDE RECORDS SUMMARY | 2024-04-28 14:35 | XMS_ITS | Clinical Summary ---
Author Organization [facility] Address [place], [place] [address] Care Team Providers Care Cellophane Wrapping Examiner Name Role Phone Tab, Leon Unavailable PavelHugojose Unavailable [phone] Lori Hensley RN Unavailable [phone] Pawel Robbins Primary Care Provider [phone] Allergies Active Allergy Reactions Criticality Noted Date Comments Lactose *Unknown 04/27/2020 Morphine Other - Describe In Comment Field 02/12/2006 Patient reports it causes paralysis Medications norethin aldair-eth estrad-fe, 1-20 mg-mcg, (LOESTRIN FE 04/04; JUNEL FE 04/04) tablet Take 1 Tablet by mouth once daily. 2 Active Ventolin HFA 90 mcg/actuation inhalerIndications :Atelectasis INHALE 1 TO 2 PUFFS BY MOUTH EVERY 4 HOURS NEEDED FOR SHORTNESS OF BREATH 18 g 2 Active mirtazapine (REMERON) 15 mg tablet Take 15 mg by mouth at bedtime. Active dextroamphetamine- amphetamine (ADDERALL) 20 mg tablet TAKE 2 TABLETS BY MOUTH IN THE AM AND 1 IN THE AFTERNOON 3 Active ondansetron (ZOFRAN) 4 mg tablet Take 4 mg by mouth every 6 hours. 3 Active psyllium powdIndications:Ir ritable bowel syndrome, unspecified type Mix 1 tsp in liquid then take by mouth once daily if needed for Constipation. 283 g 11 3 Active propranoloL (INDERAL) 20 mg tabletIndications: Chronic migraine without aura without status migrainosus, not intractable TAKE 1 TABLET(20 MG) BY MOUTH TWICE DAILY 180 Tablet 3 Active celecoxib (CELEBREX) 200 mg capsule Take 200 mg by mouth. 3 Active cloNIDine HCL (CATAPRES) 0.2 mg tabletIndications: PTSD (post-traumatic stress disorder) Take 1 Tablet (0.2 mg) by mouth two times daily. 360 Tablet 3 Active clonazePAM (KLONOPIN) 1 mg tabletIndications: PTSD (post-traumatic stress disorder) Take 1 Tablet (1 mg) by mouth every 6 hours if needed for Anxiety or Agitation. 30 Tablet 3 Active hydrocortisone (ANUSOL-HC) 2.5 % rectal creamIndications:H emorrhoids, internal Apply topically to affected area(s) two times daily. 28 g 3 Active hydrOXYzine pamoate (VISTARIL) 50 mg capsuleIndications :Episode of recurrent major depressive disorder, unspecified depression episode severity (HC),PTSD (post-traumatic stress disorder) TAKE 1 CAPSULE(50 MG) BY MOUTH EVERY 6 HOURS NEEDED FOR ANXIETY 90 Capsule 4 Active meclizine (ANTIVERT) 25 mg tabletIndications: Vertigo TAKE 1 TABLET(25 MG) BY MOUTH THREE TIMES DAILY NEEDED FOR VERTIGO 60 Tablet 4 Active amitriptyline (ELAVIL) 100 mg tablet Take 1 Tablet by mouth once daily in the evening. 4 Active meloxicam 15 mg tablet 4 Active Myrbetriq 50 mg tablet Take 50 mg by mouth once daily. Active ondansetron (ZOFRAN ODT) [address] ON TONGUE 1-2 TABLETS BY MOUTH UP TO TWICE DAILY NEEDED. MAX 9 DAYS PER MONTH 4 Active pramipexole (MIRAPEX) 0.125 mg tablet 4 Active QUEtiapine (SEROQUEL) 100 mg tablet Take 100 mg by mouth at bedtime. 4 Active Nurtec ODT 75 mg orally disintegrating tablet 4 Active methylPREDNISolone (Medrol, Barron,) 4 mg tabletIndications: Chronic bilateral low back pain without sciatica Take by mouth as instructed per packaging. 21 Tablet 4 Active cyclobenzaprine (FLEXERIL) 10 mg tabletIndications: Chronic bilateral low back pain without sciatica Take 1 Tablet (10 mg) by mouth 3 times daily if needed for Muscle Spasm. 90 Tablet 1 4 Active omeprazole (PRILOSEC) 20 mg Delayed-Release capsuleIndications :Acute gastritis, presence of bleeding unspecified, unspecified gastritis type TAKE 1 CAPSULE(20 MG) BY MOUTH EVERY DAY BEFORE A MEAL 90 Capsule 2 4 Active ofloxacin (FLOXIN) 0.3 % otic solutionIndication s:Otitis externa of right ear, unspecified chronicity, unspecified type Place 5 Drops into right ear once daily. 5 mL 4 Active pantoprazole (PROTONIX) 20 mg tabletIndications: Acute gastritis, presence of bleeding unspecified, unspecified gastritis type TAKE 1 TABLET(20 MG) BY MOUTH EVERY DAY 90 Tablet 2 4 Active DULoxetine (CYMBALTA) 30 mg Delayed-release capsuleIndications :Fibromyalgia TAKE 1 CAPSULE(30 MG) BY MOUTH EVERY DAY 90 Capsule 4 Active Active Problems Problem Noted Date Diagnosed Date Bleb, lung 02/26/2023 Neurogenic bladder 12/27/2021 Overview (12/27/2021): Receiving Botox injections through urology at [facility] Alcohol abuse, continuous 12/23/2021 Generalized anxiety disorder 12/25/2020 Gallstones 12/26/2019 Overview (12/23/2021): Added automatically from request for surgery [id number] Traumatic brain injury with loss of consciousnes s 09/21/2019 Major depression 10/15/2017 Fibromyalgia 10/14/2017 Restless leg syndrome 10/14/2017 Irritable bowel syndrome without diarrhea 2017 Inflammatory bowel disease (ulcerative colitis) 10/14/2017 Urinary incontinence 10/14/2017 Gastroesophageal reflux disease 05/19/2017 Bilateral carpal tunnel syndrome 05/19/2017 Osteoarthritis 05/19/2017 Overview (12/23/2021): Hip, Knee, Spine Migraine 12/08/2015 Borderline personality disorder 12/08/2015 PTSD (post-traumatic stress disorder) 12/08/2015 Narcotic abuse 05/30/2015 Attention deficit hyperactiv ity disorder (ADHD), combined type, mild 01/03/2015 Overview (12/23/2021): Problem list name updated by automated process. Provider to review Problem list name updated by automated process. Provider to review [facility], Dr De Jesus Bipolar II disorder 01/03/2015 Overview (12/23/2021): [facility], Dr De Jesus Vitamin D deficiency 02/28/2014 FH: colon cancer 11/18/2013 Overview (12/23/2021): Father age 52 -- will start colonoscopies early 40's ; FH: colon cancer - father mid 50's? Lumbar disc herniation 02/15/2013 Cervical high risk HPV (human papillomavirus) te st positive 05/21/2012 Overview (12/23/2021): 05/18/03 ASCUS/+ HPV 16 '08, '12 NIL paps 05/21/12 NIL/+ HR HPV. Plan: cotest in 1 year 07/11/14 NIL/+ HR HPV. 05/30/15 NIL/+ HR HPV 18 and other. Plan: colpo 09/10/15 Colpo. ECC-normal 02/09/17 Repeat Colpo- Bx-normal. NIL/Neg HPV. Plan: cotest in 1 year 03/03/18 Patient is lost to pap tracking follow-up. 07/30/21 NIL pap, neg HR HPV. Plan Chronic pain syndrome 04/27/2012 DDD (degenerative disc disease), lumbar 06/03/19 12 HSV infection 02/16/2003 Resolved Problems Problem Noted Date Diagnosed Date Resolved Date Pain 04/24/2020 12/27/2021 DDD (degenerative disc disease), lumbar 10/14/2017 10/14/2017 Memory problem 10/14/2017 12/27/2021 Dental infection 12/08/2015 12/27/2021 Fibromyalgia 12/08/2015 10/15/2017 Lumbosacral radiculitis 09/21/201212/14 Greater trochanteric bursitis of left hip 10/29/2011 12/27/2021 Cervicalgia 08/26/2010 12/27/2021 Encounters Date Type Department Care Team Description 04/21/2024 11:00 AM BUNDLE COLLECTOR Patient Outreach [address] [address] Lori Hensley RN [facility]ination[facility] (HRA) 04/21/2024 Patient Outreach [address] [address] Carolina Swan [facility] (Assessment forms mailed 04/21/2024./) 04/21/2024 Travel 04/19/2024 Patient Outreach [address] [address] Lori Hensley RN [facility] (HRA Scheduled) 03/14/[address] [address] Lori Hensley RN [facility] (Call from member) 02/13/2024 Refill [facility] [address] [place] [address] Toni Gutierrez DO Refill Request (Duloxetine) 01/29/2024 Patient Outreach [address] [address] Lori Hensley RN [facility] Care Coordination- [facility] from Last 3 Months Immunizations Name Administration Dates Next Due HPV 9 (Gardasil 9) 09/25/2021 Influenza, IIV3 (Age >=3 years) 02/16/2003 Influenza, IIV4 04/23/2018 Influenza,CCIIV4 PRESERV FREE 04/02/2017 Influenza,LAIV4 Live Intranasal (Flumist) 2013 Pneumococcal Poly,23-Valent (Pneumovax) 04/23/19 19 Td, Preservative Free (age >= 7 Years) 6,03/16/2004 Tdap 10/21/2017 Family History Medical History Relation Name Comments COPD Mother Other Mother Poor dentition Relation Name Status Comments Mother Social History Tobacco Use Types Packs/Day Years Used Date Smoking Tobacco: Every Day Cigarettes 0.3 36.4 Started: 11/17/1987 Smokeless Tobacco: Never Tobacco Cessation:Ready to Q uit: No; Counseling Given: Yes Alcohol Use Standard Drinks/Week Comments Yes 1 (1 standard drink = 0.6 oz pur e alcohol) PHQ-2 Answer Date Recorded PHQ-2 TOTAL SCORE 2 10/17/2022 Social Connections Answer Date Recorded Do you often feel lonely or isolated from those around you? 0 02/26/2023 Financial Resource Strain Answer Date R ecorded Difficulty of Paying Living Expenses 3 02/26/2023 Difficulty of Paying Living Expenses Not on file 02/26/2023 Food Insecurity Answer Date Recorded Do you worry your food will run out before you are able to buy more? 1 02/26/2023 Transportation Needs Answer Date Record ed Does lack of transportation keep you from medica l appointments? 1 02/26/2023 Does lack of transportation keep you from work, meetings or getting things that you need? 1 02/26/2023 Housing Stability Answer Date Recorded What is your housing situation today? 1 02/26/2023 Utilities Answer Date Recorded Do you have trouble paying f or utilities (for example, heat, electricity, water, phone)? 1 02/26/2023 Comments No Sex and Gender Information Value Date Recorded Sex Assigned at Not on file Legal Sex Female 6:13 AM BUNDLE COLLECTOR Gender Identity Not on file Sexual Orientation Not on file Obstetrics History Last Filed Vital Signs Vital Sign Reading Time Taken Comments Blood Pressure 135/85 06/22/2023 1:25 PM CDT Pulse 74 06/22/2023 1:25 PM CDT Temperature 37.2 C (98.9 F) 06/22/2020 3:31 PM CDT Respiratory Rate 16 11/14/2017 8:36 PM CDT Oxygen Saturation 100% 06/22/2023 1:25 PM CDT Inhaled Oxygen Concentration - - Weight 112.5 kg (248 lb 1.6 oz) 02/26/2023 3:36 PM BUNDLE COLLECTOR Height 171.5 cm (5' 7.5) 02/26/2023 3:36 PM BUNDLE COLLECTOR Body Mass Index 38.28 02/26/2023 3:36 PM BUNDLE COLLECTOR Plan of Treatment Health Maintenance Due Date Last Done Comments Pneumococcal series for age 6-49 (2 of 2 - PCV) 04/23/2019 04/23/2018 Mammogram for age 45-75 2021 Depression screening for age 12+ 10/18/2023 10/17/2022, 10/17/2022 COVID-19 vaccine series ( season) 2023 Influenza for age 9-49 11/15/2023 9, 04/02/2017, 11/24/2013, Additional history exists BMI (ht and wt on same day) for age 18+ 02/27/2024 02/26/2023, 12/27/2021, 06/22/2020, Additional history exists Pap test for age 21-65 07/18/2024 2 ([facility]) Lipids for age 45-75 03/21/2027 03/21/2022 (Verified in Care Everywhere or Patient Record) Tetanus booster 10/22/2027 10/21/2017, 11/0 07/2005, 03/16/2004 Colonoscopy through age 75 08/28/203008/28 (Verified in Care Everywhere or Patient Record) Tdap Completed 10/21/2017 HIV for age 15-65 Addressed 03/21/2022 (Ve rified in Care Everywhere or Patient Record) Overridden with the intention of not completing the topic Hepatitis C screening for age 18-79 Addressed 03/21/2022 (Verified in Care Everywhere or Patient Record) Overridden with the intention of not completing the topic Goals Goal Patient Goal Type Associated Problems Recent Progress Patient-Stated? Author [place] [facility]: Health Maintenance General Lori Peter, RN Note: Health Maintenance Tracking Grid Zuleika will engage in management of preventive needs to improve health & wellness. Health Screening Dates of Last Completion & Other Notes Annual Preventive Check-Up 11/18/2024 Mammogram member will schedule Colorectal Cancer Screening N/A Fall Risk no Flu Vaccine declined Tetanus Booster (Every 10 Years) COVID-19 Vaccine declined Hearing Exam Vision Exam 02/06 Dental Exam Has full dentures Aspirin Use no Cholesterol Check 12/08 Routine Diabetes: N/A Kidney Function Check Dilated Eye Exam A1C Check (Value) Blood Pressure Check Other (Bone Density, Preventive Vaccines, etc.) [place] [facility]: [place] Choices General Yes Lori Hensley, RN Note: Goal Title: [facility] CC - [place] Goals Goals Creation Date: 04/21/2024 Goals End Date: 04/20/2025 Z[facility]ika's [place]ICES goal statements (SMART): I will decrease pain by 1-2 points on a scale of 1-10 by end of target date. I will experience stability and/or improvement in my emotional health by participating in therapy by end of target date. Actions my Launch Leader (CC) will take to support me in achieving these goals: CC will monitor goal progress at biannual Support Plan review and record updates in [place]ICES. Lori Hensley RN..........04/21/2024 11:44 AM Insurance MEDICARE PART B HB ONLY MEDICARE PB ONLY MEDICARE PART A HB ONLY MEDICA ACCESSABILITY SOLUTION MEDICARE PB ONLY MEDICAID MEDICA CHOICE CARE [id number] [place] [address] MEDICARE PART B HB ONLY MEDICA CHOICE CARE Advance Directives * Full Code (Latest Code Status on File) Date Activated Date Inactivated Comments 12/08/2015 9:31 PM 12/09/2015 1:58 PM Care Teams Cellophane Wrapping Examiner Relationship Specialty Start Date End Date Pawel Robbins [address] [place] [address] PCP - General Family Practice 04/26/24 Leon Barth Psychiatry Psychiatry 05/15/17 [facility] [address] [place] [address] Rheumatology Rheumatology 10/15/17 Lori Hensley, RN [address] [place], [place] [id number] [facility] Care Coordination Launch Leader 11/01/20 [facility] 10/12/18 [facility] Conveyor LoaderJig Box Operator 07/13/19 Hansa Dhaliwal APRN, GRAPHIC DESIGN SPECIALIST Urology Surgery - Urology 04/30/20 Santo Sánchez MD Neurology Neurology 04/30/20 Servando Guzman MD Orthopedics Surgery - Orthopedics 04/30/20 [facility] Pain Management Pain Medicine 04/30/20 [facility] 04/30/20
--- OUTSIDE RECORDS SUMMARY | 2024-04-28 14:35 | XMS_ITS | Encounter Summary ---
Author Organization [facility] Address [address] [place] [address] Care Team Providers Care Care Coordination Manager Name Role Phone Pawel Robbins MD Primary Care Provider Reason for Visit * Reason Comments Refill Encounter Details Date Type Department Care Team (Late st Contact Info) Description 02/29/2024 Refill [facility] - Urology [address] [facility] [address] [address] Hansa Dhaliwal, HOT PLATE [employer]WO[employer] PRESS OPERATOR, PACKAGING SALES CONSULTANT [address] [address] Refill Social History Tobacco Use Types Packs/Day Years Used Date Smoking Tobacco: Former Cigarettes 0.5 29.7 1 - 09/13/2021 Electric Cigarette Smokeless Tobacco: Never Comments:Quit recently for 6 months Alcohol Use Standard Drinks/Week Comments Yes 0 (1 standard drink = 0.6 oz pure alcohol) 1 glass wine once every two weeks PHQ-2 Answer Date Recorded PHQ-2 Score 2 11/19/2023 Comments No Sex and Gender Information Value Date Recorded Sex Assigned at Not on file Legal Sex Female 5:11 AM CDT Gender Identity Not on file Sexual Orientation Not on file Occupation Industry Job Start Date Job End Date Disability Not on file Not on file Not on file documented as of this encounter Plan of Treatment Not on file documented as of this encounter Visit Diagnoses Diagnosis Urge incontinence documented in this encounter Care Teams Care Coordination Manager Relationship Specialty Start Date End Date Pawel Robbins MD [address] [place] [address] PCP - General 06/16/10 documented as of this encounter
--- OUTSIDE RECORDS SUMMARY | 2024-04-28 14:35 | XMS_ITS | Encounter Summary ---
Author Organization [facility] Address [address] [place] [address] Care Team Providers Care Telesales Advisor Name Role Phone Pawel Robbins MD Primary Care Provider Anisa Montejo APRN CASINO HOST Unavailable Toni Gutierrez DO Primary Care Provider [phone] Encounter Details Date Type Department Care Team (Late st Contact Info) Description 05/25/2021 Documentation Only INTERFACED REPORT Unknown, Provider Social History Tobacco Use Types Packs/Day Years Used Date Smoking Tobacco: Every Day Cigarettes 0.3 10 Smokeless Tobacco: Current Alcohol Use Standard Drinks/Week Comments No 0 (1 standard drink = 0.6 oz pur e alcohol) PHQ-2 Answer Date Recorded PHQ-2 Score 0 03/23/2018 Comments No Sex and Gender Information Value Date Recorded Sex Assigned at Not on file Legal Sex Female 3:26 AM RESEARCH ANALYST Gender Identity Not on file Sexual Orientation Not on file COVID-19 Exposure Response Date Recorded In the last month, have you been in contact with someone who was confirmed or suspected to have Coronavirus / COVID-19? No / Unsure 05/25/2021 3:06 PM RESEARCH ANALYST documented as of this encounter Plan of Treatment Not on file documented as of this encounter Visit Diagnoses Not on filedocumented in this encounter Additional Health Concerns Infection Onset Date Last Indicated Resolved Time Rule Out COVID-19 09/03/2021 09/03/2021 09/04/2021 12:34 AM CDT documented as of this encounter Care Teams Telesales Advisor Relationship Specialty Start Date End Date Pawel Robbins MD PCP - General 06/09/11 05/20/23 Toni Gutierrez DO [address] [place] [address] PCP - General 05/21/23 Anisa Montejo APRN CASINO HOST [address] [facility] [address] [place] [address] Assigned OBGYN Provider 08/04/2101/30 documented as of this encounter
--- OUTSIDE RECORDS SUMMARY | 2024-04-28 14:35 | XMS_ITS | Clinical Summary ---
Author Organization [facility] Address [address] [place] [address] Care Team Providers Care Cruise Director Name Role Phone Unavailable Primary Care Provider Unavailabl e Source Comments PLEASE NOTE, if this patient is a minor, it may be UNLAWFUL to discuss sensitive information that is contained in these records (such as FAMILY PLANNING, MENTAL HEALTH or SUBSTANCE ABUSE) with the minor patient's parent or other person without the patient's specific authorization.[facility] Allergies Active Allergy Reactions Criticality Noted Date Comments Morphine Rash High 10/22/2001 Other reaction(s): Other - Describe In Comment Field IV morphine Patient reports it causes paralysis Feels paralyzed and like on fire with rash Medications acetaminophen (TYLENOL) 500 mg tablet Take 1,000 mg by mouth 0 Active ALPRAZolam (XANAX) 1 mg tablet Take 1 mg by mouth Active amitriptyline (ELAVIL) 10 mg tablet TAKE 3 TABLETS BY MOUTH EVERY EVENING 1 Active baclofen 20 mg tablet Take 20 mg by mouth 2 (two) times daily as needed 1 Active celecoxib (CELEBREX) 100 mg capsule Take 100 mg by mouth 2 (two) times daily 1 Active clonazePAM (KLONOPIN) 1 mg tablet TAKE 1 TABLET BY MOUTH TWICE DAILY AND 2 EVERY NIGHT AT BEDTIME 1 Active dextroamphetamine- amphetamine (ADDERALL) 20 mg tablet TAKE 2 TABLETS BY MOUTH EVERY MORNING AND 1 TABLET BY MOUTH DAILY 1 Active DULoxetine (CYMBALTA) [address] capsule Take 1 Capsule by mouth once daily 9 Active guanFACINE (TENEX) 1 mg tablet TAKE 1 TABLET BY MOUTH EVERY MORNING AND 2 TABLETS EVERY NIGHT AT BEDTIME 1 Active ibuprofen 200 mg tablet Take 400-600 mg by mouth 0 Active metFORMIN (GLUCOPHAGE) 500 mg tablet Take 500 mg by mouth 9 Active MYRBETRIQ 50 mg Tb24 Take 1 Tablet by mouth once daily 1 Active nystatin (MYCOSTATIN) 100,000 unit/gram cream Apply topically 9 Active omeprazole (PRILOSEC) [address] capsule Take 10 mg by mouth 9 Active rizatriptan (MAXALT-COMPLEX MANAGER) 10 mg disintegrating tablet Take 1 Tablet by mouth as needed for Headache. at onset of migraine. May repeat in 2 hr if needed up to 30mg in 24 hr & MAX use 5 days/month 1 Active traZODone (DESYREL) 50 mg tablet Take 50 mg by mouth nightly at bedtime 1 Active Active Problems Problem Noted Date Diagnosed Date Attention deficit disorder 12/25/2020 Overview (12/25/2020): Problem list name updated by automated process. Provider to review Generalized anxiety disorder 12/25/2020 Depression, recurrent ([facility]) 10/15/2017 Borderline personality disorder ([facility]) 2015 Social History Tobacco Use Types Packs/Day Years Used Date Smoking Tobacco: Every Day Smokeless Tobacco: Current Social Connections Answer Date Recorded Connectedness 0 12/04/2023 Financial Resource Strain Answer Date R ecorded Financial Resource Strain 0 2019 Stress Answer Date Recorded Stress 0 12/26/2019 Physical Activity Answer Date Recorded Physical Activity 0 12/26/2019 Food Insecurity Answer Date Recorded Food 0 12/10/2023 Transportation Needs Answer Date Record ed Transportation 0 12/26/2019 Housing Stability Answer Date Recorded Housing 0 12/26/2019 Safety and Environment Answer Date Anish rded Safety 0 12/26/2019 Utilities Answer Date Recorded Utilities 0 12/26/2019 Employment Answer Date Recorded Stress 0 12/04/2023 Comments Unknown Sex and Gender Information Value Date Recorded Sex Assigned at Female 01/08/2021 2:09 PM PDT Legal Sex Female 10:55 AM PDT Gender Identity Female 01/08/2021 2:09 PM PDT Sexual Orientation Straight 01/08/2021 2: 09 PM PDT Last Filed Vital Signs Vital Sign Reading Time Taken Comments Blood Pressure 129/85 02/04/2021 1:40 PM PACK WORKER SUPERVISOR Pulse 84 02/04/2021 1:40 PM PACK WORKER SUPERVISOR Temperature - - Respiratory Rate - - Oxygen Saturation - - Inhaled Oxygen Concentration - - Weight - - Height - - Body Mass Index - - Plan of Treatment Not on file Insurance [employer] [place] MEDICA[place] Member Subscriber Plan / Payer ( fective 2016-Present) Name:Sierra Josephyohannes Bowen Relation to Subscriber:Self Name:Sierra Josephyohannes Bowen Payer ID:[id number] Type:Indemnity Address: [address] [facility] AND PUBLIC
--- OUTSIDE RECORDS SUMMARY | 2024-04-28 14:35 | XMS_ITS | Encounter Summary ---
Author Organization [facility] Address [address] [place] [address] Care Team Providers Care Cafe Manager Name Role Phone Sanaz Robbins MD Primary Care Provider [phone] Reason for Visit * Reason Comments Refill methocarbamol (ROBAX IN) 750 MG tablet [Pharmacy Med Name: METHOCARBAMOL 750MG TABLETS] Encounter Details Date Type Department Care Team (Late st Contact Info) Description 02/13/2024 Refill [facility] [address] [facility] [address] [place] [address] Sanaz Robbins MD [address] [place], [place] [id number] Refill (methocarbamol (ROBAXIN) 750 MG tablet [Pharmacy Med Name: METHOCARBAMOL 750MG TABLETS]) Social History Tobacco Use Types Packs/Day Years [...] on file documented as of this encounter Nursing Notes * Alex Parks Xrwcomm - 02/13/2024 3:44 AM CST methocarbamol (ROBAXIN) 750 MG tablet [Pharmacy Med Name: METHOCARBAMOL 750MG TABLETS] Medication started: 01/17/2022 Last ordered by SANAZ ROBBINS: 08/13/2023 (184 days ago) QTY: 360, Refills: 1, Sig: take 1 tablet(750 mg) by mouth four times daily (unchanged) -> Medication cannot be delegated. Last qualifying visit: 11/19/2023 (with SANAZ ROBBINS) Next scheduled visit: [facility] Embedded Refills, Reference: [id number], 02/13/2024 3:44:46 AM Adam WIGGINS: ALDO [facility] [[id number]] ([id number]) ATER documented in this encounter Plan of Treatment Not on file documented as of this encounter Visit Diagnoses Not on filedocumented in this encounter Care Teams Cafe Manager Relationship Specialty Start Date End Date Sanaz Robbins MD [address] [facility] [place] [address] PCP - General 06/16/10 documented as of this encounter
--- OUTSIDE RECORDS SUMMARY | 2024-04-28 14:37 | XMS_ITS | Encounter Summary ---
Author Organization [facility] Address [address] [place] [id number] Care Team Providers Care Physician Coder Name Role Phone Sirisha Dominique MD Primary Care Provider Pawel Hanson MD Primary Care Provider Anisa Montejo APRN CULTURE MEDIA LABORATORY ASSISTANT Unavailable Toni Gutierrez DO Primary Care Provider [phone] Encounter Details Date Type Department Care Team (Late st Contact Info) Description 02/12/[address] [place] [address] Sirisha Dominique MD INACTIVE IN [place] 02/13/2024 [facility] EM[facility]Y [facility]. 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 EM[facility]. NOTE- Primary documented in this encounter Additional Health Concerns Infection Onset Date Last Indicated Resolved Time Rule Out COVID-19 09/03/2021 09/03/2021 09/04/2021 12:34 AM CDT documented as of this encounter Care Teams Physician Coder Relationship Specialty Start Date End Date Sirisha Dominique MD INACTIVE IN [place] 02/13/2024 PCP - General 05/18/0309/03 Pawel Robbins MD INACTIVE IN [place] 02/13/2024 PCP - General 06/09/11 05/20/23 Toni [place] [address] PCP - General 05/21/23 Anisa Montejo APRN CULTURE MEDIA LABORATORY ASSISTANT [address] [place] [address] [place] [address] Assigned OBGYN Provider 08/04/2101/30 documented as of this encounter
--- OUTSIDE RECORDS SUMMARY | 2024-04-28 14:37 | XMS_ITS | Encounter Summary ---
Author Organization [facility] Address [address] [place] [address] Care Team Providers Care Lace Stripper Name Role Phone Pawel Robbins MD Primary Care Provider Encounter Details Date Type Department Care Team (Late st Contact Info) Description 11/28/2014 Telephone [facility] [address] [facility] [place], [place] [id number] Pawel Robbins MD [address] [place], [place] [address] Social History Tobacco Use Types Packs/Day Years Used Date Smoking Tobacco: Never Assessed Comments No Sex and Gender Information Value [...] Infection Onset Date Last Indicated Resolved Time R/O COVID19 12/27/2019 12/27/2019 12/29/2019 5:49 PM CDT documented as of this encounter Care Teams Lace Stripper Relationship Specialty Start Date End Date Pawel Robbins MD [address] [place], [place] [id number] PCP - General 06/16/10 documented as of this encounter
--- NOTE | 2024-04-28 15:14 | ED.GENADULT ---
HPI - General Adult General Date Seen: 04/28/24 Chief complaint: Headache/Migraine Stated complaint: Migraine Time Seen by Provider: 04/28/24 13:11 History of Present Illness HPI narrative: Patient is a 48-year-old woman who presents for evaluation of migraine headache. She says she has a longstanding history of migraines, says she has not had a lot of migraines recently until yesterday when she had onset of a typical migraine. It is whole cranial and associated with photophobia nausea. She says that she has been seen many times for migraine, and the regular medicines do not help that she has had good success with ketamine. She does have a history of traumatic brain injury as well as a history of polysubstance abuse, currently uses marijuana but not other substances. She does talk about a number of other psychosocial stressors with her children, Mother, money, etcetera. On specific questioning, she says she has a little bit of a sore throat, has had some body aches. No fevers that she is aware of. Related Data Home Medications ?Medication ?Instructions ?Recorded ?Confirmed amitriptyline 100 mg tablet 100 mg PO HS 07/25/22 01/22/23 clonazepam 1 mg tablet 2 mg PO BID PRN 07/25/22 04/28/24 clonidine HCl 0.2 mg tablet 0.4 mg PO BID 07/25/22 04/28/24 norethindrone 1 mg-ethinyl 1 tab PO DAILY 07/25/22 01/22/23 estradiol 20 mcg (21)-iron 75 mg (7) tablet (June04/04 ()) baclofen 20 mg tablet 20 mg PO BID 01/23/23 01/23/23 cyclobenzaprine 10 mg tablet 10 mg PO TID PRN 01/23/23 02/09/23 dextroamphetamine-amphetamine 20 40 mg PO BID 01/23/23 04/28/24 mg tablet (Adderall) meloxicam 15 mg tablet 15 mg PO DAILY 01/23/23 01/23/23 mirtazapine 15 mg tablet 15 mg PO QPM 01/23/23 01/23/23 pramipexole 0.125 mg tablet 0.25 - 0.375 mg PO HS 01/23/23 02/09/23 hydroxyzine HCl 50 mg tablet 50 mg PO QID PRN 04/28/24 04/28/24 quetiapine 100 mg tablet 100 mg PO QPM 04/28/24 04/28/24 Previous Rx's ?Medication ?Instructions ?Recorded pantoprazole 20 mg tablet,delayed 20 mg PO DAILY #20 tabs 07/25/22 release (Protonix) quetiapine 25 mg tablet 25 mg PO HS #14 tabs 01/23/23 Allergies Allergy/AdvReac Type Severity Reaction Status Date / Time morphine Allergy Intermediate burning Verified 04/28/24 11:47 and parylisised lactose Allergy Verified 04/28/24 11:47 Review of Systems Status of ROS: Reports: 10 or more systems reviewed and unremarkable except as noted in History and below [facility] Medical History Substance use disorder ?F19.90 - Other psychoactive substance use, unspecified, uncomplicated (ICD-10) Polypharmacy ?Z79.899 - Other truck terminal manager (current) drug therapy (ICD-10) Bipolar 2 disorder ?F31.81 - Bipolar II disorder (ICD-10) Neurogenic bladder ?N31.9 - Neuromuscular dysfunction of bladder, unspecified (ICD-10) Alcohol abuse ?F10.10 - Alcohol abuse, uncomplicated (ICD-10) Narcotic abuse ?F11.10 - Opioid abuse, uncomplicated (ICD-10) Chronic pain ?G89.29 - Other chronic pain (ICD-10) Traumatic brain injury ?S06.9XAA - Unspecified intracranial injury with loss of consciousness status unknown, initial encounter (ICD-10) ADHD ?F90.9 - Attention-deficit hyperactivity disorder, unspecified type (ICD-10) Urinary incontinence ?R32 - Unspecified urinary incontinence (ICD-10) Restless legs ?G25.81 - Restless legs syndrome (ICD-10) Irritable bowel syndrome ?K58.9 - Irritable bowel syndrome without diarrhea (ICD-10) Osteoarthritis of right knee ?M17.11 - Unilateral primary osteoarthritis, right knee (ICD-10) Lumbar degenerative disc disease ?M51.36 - Other intervertebral disc degeneration, lumbar region (ICD-10) Gastroesophageal reflux disease ?K21.9 - Gastro-esophageal reflux disease without esophagitis (ICD-10) Anxiety ?F41.9 - Anxiety disorder, unspecified (ICD-10) Depression ?F32.A - Depression, unspecified (ICD-10) PTSD (post-traumatic stress disorder) ?F43.10 - Post-traumatic stress disorder, unspecified (ICD-10) Borderline personality disorder ?F60.3 - Borderline personality disorder (ICD-10) Migraine ?G43.909 - Migraine, unspecified, not intractable, without status migrainosus (ICD-10) Acute bronchitis ?J20.9 - Acute bronchitis, unspecified (ICD-10) Family History Mother COPD (chronic obstructive pulmonary disease) Social History Narrative: Patient lives in [place] with her 2 daughters age 13 and 14. She presents the emergency department with her male friend Miguel. He is healthcare power of deputy county attorney. She is currently vaping tobacco. She occasionally uses cannabis. She drinks alcohol about once a week Smoking Status: Current some day smoker What tobacco products do you use: cigarettes Do you use any of these nicotine containing products: E-Cigarettes and Vaping Products Second hand tobacco smoke exposure: Yes How often do you have a drink containing alcohol: 2-3 times a week How many standard drinks containing alcohol do you have on a typical day: 5 or 6 AUDIT-C Alcohol total score: 5 Non-prescribed substance use: marijuana (any form) and other Non-prescribed substance use details: on adderall and marijuana-medical service: No Exam Narrative: Exam Narrative: Vital signs reviewed In general, alert, nontoxic mid aged woman. She has glasses on and a stocking cap over her glasses. She moves around a lot. Head: Normocephalic, atraumatic. Eyes: Sclera clear. Pupils equal and reactive. ENT: Mucous membranes moist. Neck: Supple without adenopathy. Heart: Regular rate and rhythm without murmur. Lungs: Clear. No increased work of breathing, crackles or wheezes. Neurologic: Alert, conversant. Speech fluent, face symmetric. Moves all extremities equally. Skin: Warm, dry well perfused. Affect: Somewhat agitated. Const: Vital Signs, click to edit/add: Vital Signs - 24 hr 04/28/24 11:41 04/28/24 13:55 04/28/24 13:57 Temperature 98.6 F Pulse Rate 98 90 Pulse Rate [Right Pulse Oximeter] 79 Respiratory Rate 18 Blood Pressure 117/80 Blood Pressure [Ri ght Upper Arm] 154/78 H Pulse Oximetry 98 98 97 Oxygen Delivery Me thod Room Air 04/28/24 13:58 04/28/24 14:00 04/28/24 14:15 Temperature Pulse Rate 94 88 97 Pulse Rate [Right Pulse Oximeter] Respiratory Rate Blood Pressure Blood Pressure [Ri ght Upper Arm] Pulse Oximetry 99 99 99 Oxygen Delivery Me thod Course Course ED Course: We placed an IV. Based on her report, I did start with ketamine, 20 mg IV piggyback as well as Zofran for nausea. She had 500 mL of normal saline as well. She reported minimal improvement with the ketamine this time. I gave her Toradol and Benadryl as well. I went back in to talk to her. She says that the 1st time she had ketamine at work very well, then the next couple of times it did not work as well and then the past couple of times she has been given 2 doses with better results. Reviewed with her that I have given her the standard dosing for headache management. I have some concerns about ramping up the dose of ketamine for management of her chronic migraine. She is on medical marijuana apparently for management of chronic pain. She does not have complete relief of her headache at this time but I have encouraged her to go home and rest and see how she does. Discuss with primary care if she needs further help with migraine management. Vital Signs Vital signs: Initial Vital Signs Temperature 98.6 F 04/28/24 11:41 Temperature Source Temporal Artery Scan 04/28/24 11:41 Pulse Rate 79 04/28/24 11:41 Pulse Rhythm Regular 04/28/24 11:41 Respiratory Rate 18 04/28/24 11:41 Blood Pressure 154/78 H 04/28/24 11:41 Blood Pressure Mean 103 04/28/24 11:41 Blood Pressure Position Sitting 04/28/24 11:41 Pulse Oximetry 98 04/28/24 11:41 Oxygen Delivery Method Room Air 04/28/24 11:41 Vital Signs Temperature 98.6 F 04/28/24 11:41 Pulse Rate 79 04/28/24 11:41 Respiratory Rate 18 04/28/24 11:41 Blood Pressure 154/78 H 04/28/24 11:41 Pulse Oximetry 98 04/28/24 11:41 Oxygen Delivery Method Room Air 04/28/24 11:41 Temperature 98.6 F 04/28/24 11:41 Pulse Rate 97 04/28/24 14:15 Respiratory Rate 18 04/28/24 11:41 Blood Pressure 117/80 04/28/24 13:57 Pulse Oximetry 99 04/28/24 14:15 Oxygen Delivery Method Room Air 04/28/24 11:41 Medications Administered Medications: Discontinued Medications Generic Name Dose Route Start Last Admin Trade Name Freq PRN Reason Stop Dose Admin Diphenhydramine HCl 25 mg 04/28/24 14:28 04/28/24 14:34 Diphenhydramine 50 Mg/Ml Inj IVP 04/28/24 14:29 25 mg ONCE ONE Administration Sodium Chloride 500 mls @ 500 mls/hr 04/28/24 13:22 04/28/24 14:10 0.9 % Sodium Chloride 500 Ml IV 04/28/24 14:21 Infused .Q1H ONE Infusion Ketamine HCl 20 mg/ Sodium 100.2 mls @ 200.4 mls/hr 04/28/24 13:30 04/28/24 14:22 Chloride IVPB 04/28/24 13:59 Infused ONCE ONE Infusion Ketorolac Tromethamine 15 mg 04/28/24 14:28 04/28/24 14:34 Ketorolac 15 Mg/Ml Inj IVP 04/28/24 14:29 15 mg ONCE ONE Administration Ondansetron HCl 4 mg 04/28/24 13:22 04/28/24 13:39 Ondansetron 2 Mg/Ml Inj IVP 04/28/24 13:23 4 mg ONCE ONE Administration Medical Decision Making Lab Data Labs: Lab Results 04/28/24 Range/Units 13:30 SARS-CoV-2 (PCR) Negative SARS-CoV-2 (Negative) Influenza Type A (PCR) Negative PCR FLU A (Negative) Influenza Type B (PCR) Negative PCR FLU B (Negative) RSV (PCR) Negative PCR RSV (Negative) Discharge Plan Discharge Clinical Impression: Migraine Qualifiers: Migraine type: other Status migrainosus presence: without status migrainosus Intractability: not intractable Qualified Code(s): G43.809 - Other migraine, not intractable, without status migrainosus Patient Disposition: Home, Self-Care Condition: Improved Instructions: Migraine Headache (ED) Additional Instructions: Continue usual medications. Return as needed for severe pain, fevers, or other worsening symptoms. Prescriptions: No Action baclofen 20 mg tablet 20 mg PO BID cyclobenzaprine 10 mg tablet 10 mg PO TID PRN dextroamphetamine-amphetamine [Adderall] 20 mg tablet 40 mg PO BID meloxicam 15 mg tablet 15 mg PO DAILY pramipexole 0.125 mg tablet 0.25 - 0.375 mg PO HS mirtazapine 15 mg tablet 15 mg PO QPM quetiapine 25 mg Tablet 25 mg PO HS Qty: 14 0RF clonazepam 1 mg tablet 2 mg PO BID PRN norethindrone-e.estradiol-iron [Junel FE 04/04 (28)] 1 mg-20 mcg (21)/75 mg (7) tablet 1 tab PO DAILY clonidine HCl 0.2 mg tablet 0.4 mg PO BID amitriptyline 100 mg tablet 100 mg PO HS pantoprazole [Protonix] 20 mg tablet,delayed release (DR/EC) 20 mg PO DAILY Qty: 20 2RF hydroxyzine HCl 50 mg tablet 50 mg PO QID PRN quetiapine 100 mg tablet 100 mg PO QPM Follow Up/Referrals: MARLENA PITTMAN DO [Primary Care Provider] - Stand Alone Forms: [employer] Info Instructions
--- NOTE | 2024-04-28 15:17 | ED.NURSE ---
Pt stating she was unhappy with the care she received. Pt was given ketamine, benadryl and ketorolac, and felt her pain was unchanged. MD notified. Pt was discharged. Asked pt if we can arrange a taxi ride home, and to call family, patient denied. Offered the patient to see the doctor again, she declined. Pt was ambulatory out of the ER.
== END 2024-04-28 15:18 | disposition home or self-care (01) ==
PROVIDERS: Emergency Provider Emergency Medicine; PCP Student in an Organized Health Care Education/Training Program
DX: G43.809 Other migraine, not intractable, without status migrainosus (principal)
CPT/HCPCS: 87631; 96365; 96375; 99284; J1200; J1885; J2405; J3490; J7030